=== PATIENT | male | born 1970 | race Two or more races ===

== ENCOUNTER → 2022-09-10 | Outpatient (CLI) | payer BC ==
[2022-09-10 06:58] LABS: Basophils # (auto) 0.1 10 ^3/uL (0-0.2); Basophils % (auto) 0.8 % (0.0-2.0); Eosinophils # (auto) 0.3 10 ^3/uL (0-0.8); Eosinophils % (auto) 2.8 % (0.0-7.0); Hemoglobin 12.5 g/dL (13.5-17.5); Lymphocytes # (auto) 3.8 10 ^3/uL (0.4-5.4); Lymphocytes % (auto) 32.2 % (10.0-50.0); Mean Corpuscular Hemoglobin 27.2 pg (28.0-32.0); Mean Corpuscular Hgb Conc. 33.9 g/dL (32.0-36.0); Mean Corpuscular Volume 80.3 fL (80.0-100.0); Monocytes # (auto) 0.7 10 ^3/uL (0-1.3); Monocytes % (auto) 5.8 % (0.0-12.0); Neutrophils % (auto) 58.4 % (37.0-80.0); Red Blood Cells 4.61 10^6/uL (4.5-5.90); Red Cell Distribution Width 13.5 % (11.8-14.3); White Blood Cell 11.9 10^3/uL (4.4-10.8)
[2022-09-10 07:34] LABS: Albumin 3.3 g/dL (3.4-5.0); Calcium 9.4 mg/dL (8.5-10.1)
[2022-09-10 07:38] LABS: BUN/Creatinine Ratio 16.4; Bilirubin, Total 0.2 mg/dL (0.2-1.0)
== END | disposition home or self-care (01) ==
LOC: LAB 06:43
PROVIDERS: ATTEND Nurse Practitioner Family
DX: Z00.00 Encounter for general adult medical examination without abnormal findings (principal); E11.9 Type 2 diabetes mellitus without complications; R35.1 Nocturia; E78.00 Pure hypercholesterolemia, unspecified
CPT/HCPCS: 36415; 80053; 80061; 83036; 84153; 84443; 85025

== ENCOUNTER 2022-10-09 18:17 | Inpatient (IN) | payer BC ==
[~2022-10-09] VITALS: Ht 167.6 cm; Wt 77.0 kg
[2022-10-09 19:42] LABS: Basophils % (auto) 0.2 % (0.0-2.0); Eosinophils # (auto) 0 10 ^3/uL (0-0.8); Eosinophils % (auto) 0.1 % (0.0-7.0); Monocytes # (auto) 1.5 10 ^3/uL (0-1.3)
[2022-10-09 19:44] LABS: Basophils # (auto) 0.1 10 ^3/uL (0-0.2); Hematocrit 36.3 % (41.0-53.0); Hemoglobin 11.8 g/dL (13.5-17.5); Lymphocytes # (auto) 1.8 10 ^3/uL (0.4-5.4); Lymphocytes % (auto) 6.8 % (10.0-50.0); Mean Corpuscular Hemoglobin 26.6 pg (28.0-32.0); Mean Corpuscular Hgb Conc. 32.6 g/dL (32.0-36.0); Mean Corpuscular Volume 81.6 fL (80.0-100.0); Monocytes % (auto) 5.8 % (0.0-12.0); Neutrophils # (auto) 22.7 10 ^3/uL (1.6-8.6); Neutrophils % (auto) 87.1 % (37.0-80.0); Red Blood Cells 4.45 10^6/uL (4.5-5.90); Red Cell Distribution Width 12.8 % (11.8-14.3); White Blood Cell 26.1 10^3/uL (4.4-10.8)
[2022-10-09 20:00] LABS: INR 0.98 (0.9-1.15); Partial Thromboplastin Time 31.2 sec (24.6-33.4)
[2022-10-09 20:03] LABS: Albumin 2.6 g/dL (3.4-5.0); Calcium 9.3 mg/dL (8.5-10.1); Potassium 4.6 mmol/L (3.5-5.1)
[2022-10-09 20:06] LABS: Bilirubin, Total 0.4 mg/dL (0.2-1.0); Total Protein 8.9 g/dL (6.4-8.2)
[2022-10-09 20:34] LABS: CRP High Sensitivity 17.6 mg/dL (< 0.3)
[2022-10-09] MEDS ORDERED: SODIUM CHLORIDE 0.9% 1,000 ML IV ONE (21:00)
[2022-10-09] MEDS ORDERED: VANCOMYCIN 1GM/250ML 250 ML IV ONE (21:00)
[2022-10-09] MEDS ORDERED: CEFTRIAXONE SODIUM 2 GM in D5W 5% 50 ML IV ONE (21:00)
[2022-10-09] MEDS ORDERED: InsuLIN REG 1unit/0.01ml Soln (100units/ml) IV ONE (22:15)
[2022-10-09] MEDS ORDERED: InsuLIN REG 1unit/0.01ml Soln (100units/ml) ONE (23:55)
[2022-10-10] MEDS ORDERED: VANCOMYCIN PER PHARMACY 0 MG IV SCH (00:45)
[2022-10-10] MEDS ORDERED: ONDANSETRON HCL 4 MG/2 ML VIAL IV PRN (00:45)
[2022-10-10] MEDS ORDERED: ACETAMINOPHEN 325 MG TAB PO PRN (00:45)
[2022-10-10] MEDS ORDERED: HYDROcodone-ACET 5/325MG TAB PO PRN (00:45)
[2022-10-10] MEDS ORDERED: DEXTROSE (50%) 50ML SYRG IV PRN (00:45)
[2022-10-10 01:32] LABS: Lactic Acid w/Reflex 3.1 mmol/L (0.4-2.0)
[2022-10-10] MEDS: ACCU-CHEK COMFORT CURVE STRIP VI SCH ×5 (05:39→22:25)
[2022-10-10] MEDS: InsuLIN REG 1unit/0.01ml Soln (100units/ml) SC SCH ×5 (05:42→22:33)
[2022-10-10 08:28] LABS: Basophils # (auto) 0.2 10 ^3/uL (0-0.2); Eosinophils # (auto) 0.1 10 ^3/uL (0-0.8); Hemoglobin 10.7 g/dL (13.5-17.5)
[2022-10-10 08:29] LABS: Basophils % (auto) 0.8 % (0.0-2.0); Eosinophils % (auto) 0.4 % (0.0-7.0); Hematocrit 32.4 % (41.0-53.0); Lymphocytes # (auto) 2.3 10 ^3/uL (0.4-5.4); Lymphocytes % (auto) 9.8 % (10.0-50.0); Mean Corpuscular Hemoglobin 26.2 pg (28.0-32.0); Mean Corpuscular Volume 79.6 fL (80.0-100.0); Monocytes # (auto) 1.7 10 ^3/uL (0-1.3); Monocytes % (auto) 7.1 % (0.0-12.0); Neutrophils # (auto) 19.2 10 ^3/uL (1.6-8.6); Neutrophils % (auto) 81.9 % (37.0-80.0); Red Blood Cells 4.07 10^6/uL (4.5-5.90); Red Cell Distribution Width 12.8 % (11.8-14.3); White Blood Cell 23.4 10^3/uL (4.4-10.8)
[2022-10-10 09:03] LABS: Albumin 2.2 g/dL (3.4-5.0); BUN/Creatinine Ratio 21.9; Calcium 8.5 mg/dL (8.5-10.1)
[2022-10-10 09:08] LABS: Bilirubin, Total 0.2 mg/dL (0.2-1.0); Potassium 4.1 mmol/L (3.5-5.1); Total Protein 6.6 g/dL (6.4-8.2)
[2022-10-10] MEDS ORDERED: LOSARTAN POTASSIUM 25 MG TAB PO SCH (10:00)
[2022-10-10] MEDS: PANTOPRAZOLE 40 MG TAB PO SCH (11:00)
[2022-10-10] MEDS: LACTATED RINGER'S 1,000 ML IV SCH ×2 (15:30→23:30)
[2022-10-10] MEDS ORDERED: LACTATED RINGER'S 2,000 ML IV ONE (15:30)
[2022-10-10] MEDS ORDERED: amLODIPine BESYLATE 5 MG TAB PO ONE (15:45)
[2022-10-10] MEDS: MEROPENEM 1GM IVPB 100 ML IV SCH (16:24)
[2022-10-10] MEDS ORDERED: ERGOCALCIFEROL 50,000 UNIT(1.25MG) CAP PO SCH (18:30)
[2022-10-10 20:00] VITALS: BP 118/69
[2022-10-10] MEDS ORDERED: cefTRIAXone 1GM/50ML D5W 50 ML IV SCH (21:00)
[2022-10-10 22:00] VITALS: BP 118/69
[2022-10-10] MEDS ORDERED: ATORVASTATIN 20 MG TAB PO SCH (22:00)
[2022-10-10] MEDS: ATORVASTATIN 20 MG TAB PO SCH (22:44)
[2022-10-10] MEDS: LINEZOLID 600MG/300ML 300 ML IV SCH (22:45)
[2022-10-10 23:36] LABS: Urine Blood 1+ /uL (Negative); Urine Specific Gravity 1.019 (1.001-1.035)
[2022-10-11] MEDS: ACCU-CHEK COMFORT CURVE STRIP VI SCH ×6 (01:06→21:36)
[2022-10-11] MEDS: InsuLIN REG 1unit/0.01ml Soln (100units/ml) SC SCH ×6 (01:09→22:00)
[2022-10-11] MEDS: MEROPENEM 1GM IVPB 100 ML IV SCH ×3 (01:27→16:09)
[2022-10-11 05:00] VITALS: BP 132/72
[2022-10-11 08:00] VITALS: BP 129/62
[2022-10-11] MEDS: PANTOPRAZOLE 40 MG TAB PO SCH ×2 (08:27→10:00)
[2022-10-11 08:28] VITALS: BP 128/74
[2022-10-11] MEDS: amLODIPine BESYLATE 5 MG TAB PO SCH ×2 (08:28→10:00)
[2022-10-11] MEDS: CHOLECALCIFEROL (VITD3) 2,000 UNIT CAP/TAB PO SCH ×2 (08:28→10:00)
[2022-10-11 08:36] LABS: Folate (Folic Acid) 10.41 ng/mL (5.38-24)
[2022-10-11 08:37] LABS: Eosinophils # (auto) 0.1 10 ^3/uL (0-0.8); Eosinophils % (auto) 0.6 % (0.0-7.0); Hemoglobin 10.5 g/dL (13.5-17.5); Lymphocytes # (auto) 2.6 10 ^3/uL (0.4-5.4); Red Blood Cells 3.92 10^6/uL (4.5-5.90)
[2022-10-11] MEDS: LACTATED RINGER'S 1,000 ML IV SCH ×2 (08:37→16:08)
[2022-10-11 08:40] LABS: Basophils # (auto) 0 10 ^3/uL (0-0.2); Basophils % (auto) 0.2 % (0.0-2.0); Hematocrit 31.3 % (41.0-53.0); Mean Corpuscular Hemoglobin 26.9 pg (28.0-32.0); Mean Corpuscular Hgb Conc. 33.7 g/dL (32.0-36.0); Mean Corpuscular Volume 79.9 fL (80.0-100.0); Monocytes # (auto) 1.4 10 ^3/uL (0-1.3); Monocytes % (auto) 6.8 % (0.0-12.0); Neutrophils # (auto) 17.1 10 ^3/uL (1.6-8.6); Neutrophils % (auto) 80.4 % (37.0-80.0); Red Cell Distribution Width 12.7 % (11.8-14.3); White Blood Cell 21.3 10^3/uL (4.4-10.8)
[2022-10-11 08:55] LABS: Calcium 8.4 mg/dL (8.5-10.1); Potassium 4.7 mmol/L (3.5-5.1)
[2022-10-11 09:02] LABS: BUN/Creatinine Ratio 20.2; Bilirubin, Total 0.5 mg/dL (0.2-1.0); Total Protein 6.1 g/dL (6.4-8.2)
[2022-10-11] MEDS: LINEZOLID 600MG/300ML 300 ML IV SCH (10:00)
[2022-10-11] MEDS ORDERED: INSULIN LANTUS (GLARGINE) 1 /0.01ml (100units/ml) SC SCH ×2 (10:00→22:00)
[2022-10-11] MEDS ORDERED: ceFAZolin 1GM/50ML 100 ML IV ONE (11:55)
[2022-10-11] MEDS ORDERED: BUPIVACAINE W/ EPINEPH 0.25% INJ 50ML MDV ONE (12:01)
[2022-10-11] MEDS ORDERED: LIDOCAINE 1%HCL (LOCAL ANESTH) 10 ML MDV ONE (12:02)
[2022-10-11] MEDS ORDERED: LIDOCAINE 2% (LOCAL ANESTH.) PF 5ml SDV ONE (12:02)
[2022-10-11] MEDS ORDERED: GLYCOPYRROLATE 0.2 MG/ML 1ML VIAL ONE (12:02)
[2022-10-11] MEDS ORDERED: PROPOFOL 10 MG/ML 20 ML IV ONE (12:02)
[2022-10-11] MEDS ORDERED: ONDANSETRON HCL 4 MG/2 ML VIAL ONE (12:02)
[2022-10-11] MEDS ORDERED: KETOROLAC TROMETH 30 MG/ML 1ML VIAL ONE (12:02)
[2022-10-11] MEDS ORDERED: DexAMETHasone SOD PHOS 10MG/1ML VIAL INJ ONE (12:02)
[2022-10-11] MEDS ORDERED: BUPIVACAINE 0.25% INJ 50ML VIAL ONE (12:04)
[2022-10-11] MEDS ORDERED: KETAMINE 50mg/ML 10ml Vial (500mg/10ml) IV ONE (13:51)
[2022-10-11 16:27] VITALS: BP 117/71
[2022-10-11] MEDS ORDERED: D5W/SOD CHLO 0.9% 1,000 ML IV SCH ×2 (18:00→20:00)
[2022-10-11 20:00] VITALS: BP 131/81
[2022-10-11 22:00] VITALS: BP 131/81
[2022-10-11] MEDS: ATORVASTATIN 20 MG TAB PO SCH (22:04)
[2022-10-12] VITALS (7 sets, daily range): BP systolic 131–149; BP diastolic 76–86
[2022-10-12] MEDS ORDERED: LINEZOLID 600MG TABLET PO SCH
[2022-10-12] MEDS: MEROPENEM 1GM IVPB 100 ML IV SCH ×3 (00:51→16:24)
[2022-10-12] MEDS: SOD CHL 0.45% 1,000 ML IV SCH ×2 (00:52→06:30)
[2022-10-12] MEDS: ACCU-CHEK COMFORT CURVE STRIP VI SCH ×6 (00:53→20:46)
[2022-10-12] MEDS: InsuLIN REG 1unit/0.01ml Soln (100units/ml) SC SCH ×6 (01:12→20:59)
[2022-10-12] MEDS: INSULIN LANTUS (GLARGINE) 1 /0.01ml (100units/ml) SC SCH (10:11)
[2022-10-12] MEDS: PANTOPRAZOLE 40 MG TAB PO SCH (10:26)
[2022-10-12] MEDS: amLODIPine BESYLATE 5 MG TAB PO SCH (10:26)
[2022-10-12] MEDS: CHOLECALCIFEROL (VITD3) 2,000 UNIT CAP/TAB PO SCH (10:27)
[2022-10-12 10:32] LABS: Mean Corpuscular Volume 79.8 fL (80.0-100.0)
[2022-10-12 10:34] LABS: Hematocrit 29.7 % (41.0-53.0); Hemoglobin 9.6 g/dL (13.5-17.5); Mean Corpuscular Hemoglobin 25.9 pg (28.0-32.0); Mean Corpuscular Hgb Conc. 32.4 g/dL (32.0-36.0); Red Blood Cells 3.72 10^6/uL (4.5-5.90); White Blood Cell 25.7 10^3/uL (4.4-10.8)
[2022-10-12 10:39] LABS: Calcium 8.6 mg/dL (8.5-10.1); Potassium 4.3 mmol/L (3.5-5.1)
[2022-10-12 10:47] LABS: Basophils % (manual) 0 (0.0-2.0); Blast Cells 0; Eosinophils % (manual) 0 (0-7); Metamyelocytes % 0; Myelocytes % 0; Promyelocytes % 0; Reactive Lymphocytes 0
[2022-10-12 13:04] LABS: Band Neutrophils % (manual) 4; Lymphocytes % (manual) 15 (10.0-50.0); Monocytes % (manual) 3 (0-12)
[2022-10-12] MEDS: LINEZOLID 600MG/300ML 300 ML IV SCH ×2 (13:56→21:56)
[2022-10-12] MEDS: ATORVASTATIN 20 MG TAB PO SCH (21:56)
[2022-10-13] MEDS: ACCU-CHEK COMFORT CURVE STRIP VI SCH ×7 (00:47→23:55)
[2022-10-13] MEDS: INSULIN LANTUS (GLARGINE) 1 /0.01ml (100units/ml) SC SCH ×3 (00:48→21:55)
[2022-10-13] MEDS: InsuLIN REG 1unit/0.01ml Soln (100units/ml) SC SCH ×6 (00:49→21:55)
[2022-10-13] MEDS: MEROPENEM 1GM IVPB 100 ML IV SCH ×3 (01:01→16:30)
[2022-10-13 05:00] VITALS: BP 126/76
[2022-10-13 06:29] LABS: Basophils # (auto) 0.1 10 ^3/uL (0-0.2); Eosinophils # (auto) 0.3 10 ^3/uL (0-0.8); Hemoglobin 10.1 g/dL (13.5-17.5); Mean Corpuscular Hgb Conc. 33.7 g/dL (32.0-36.0); Mean Corpuscular Volume 79.7 fL (80.0-100.0); Monocytes # (auto) 0.9 10 ^3/uL (0-1.3); Red Blood Cells 3.77 10^6/uL (4.5-5.90)
[2022-10-13 06:40] LABS: Basophils % (auto) 0.6 % (0.0-2.0); Lymphocytes % (auto) 18.8 % (10.0-50.0); Mean Corpuscular Hemoglobin 26.8 pg (28.0-32.0); Monocytes % (auto) 5.9 % (0.0-12.0); Neutrophils # (auto) 11.5 10 ^3/uL (1.6-8.6); Neutrophils % (auto) 72.7 % (37.0-80.0); Nucleated Red Blood Cells % 0.2 %; Red Cell Distribution Width 12.9 % (11.8-14.3); White Blood Cell 15.8 10^3/uL (4.4-10.8)
[2022-10-13 07:01] LABS: Calcium 8.5 mg/dL (8.5-10.1); Magnesium 2.5 mg/dL (1.6-2.6)
[2022-10-13 07:03] LABS: BUN/Creatinine Ratio 25.2
[2022-10-13 09:00] VITALS: BP 138/78
[2022-10-13] MEDS: PANTOPRAZOLE 40 MG TAB PO SCH (10:00)
[2022-10-13] MEDS: CHOLECALCIFEROL (VITD3) 2,000 UNIT CAP/TAB PO SCH (10:51)
[2022-10-13] MEDS: amLODIPine BESYLATE 5 MG TAB PO SCH (10:52)
[2022-10-13] MEDS: LINEZOLID 600MG/300ML 300 ML IV SCH ×3 (10:52→21:53)
[2022-10-13 17:11] VITALS: BP 147/88
[2022-10-13] MEDS ORDERED: DAKINS HALF STR 0.25% (NaHypochlorite) 473 ML TOPICAL SOL TOP ONE (17:45)
[2022-10-13] MEDS ORDERED: ENOXAPARIN SOD 30 MG/0.3 ML SYRINGE SC ONE (19:30)
[2022-10-13] MEDS ORDERED: DOCUSATE SOD 100 MG CAP PO ONE (19:30)
[2022-10-13 20:00] VITALS: BP 137/77
[2022-10-13] MEDS: ATORVASTATIN 20 MG TAB PO SCH (21:52)
[2022-10-13] MEDS: DOCUSATE SOD 100 MG CAP PO SCH (21:52)
[2022-10-13 22:00] VITALS: BP 137/77
[2022-10-13 23:05] LABS: Basophils # (auto) 0.1 10 ^3/uL (0-0.2); Eosinophils # (auto) 0.3 10 ^3/uL (0-0.8); Lymphocytes # (auto) 2.8 10 ^3/uL (0.4-5.4); Monocytes % (auto) 6.6 % (0.0-12.0)
[2022-10-13 23:07] LABS: Basophils % (auto) 0.6 % (0.0-2.0); Eosinophils % (auto) 1.7 % (0.0-7.0); Hematocrit 29.1 % (41.0-53.0); Hemoglobin 9.7 g/dL (13.5-17.5); Lymphocytes % (auto) 18.6 % (10.0-50.0); Mean Corpuscular Hemoglobin 26.5 pg (28.0-32.0); Mean Corpuscular Hgb Conc. 33.2 g/dL (32.0-36.0); Mean Corpuscular Volume 79.9 fL (80.0-100.0); Neutrophils % (auto) 72.5 % (37.0-80.0); Red Blood Cells 3.64 10^6/uL (4.5-5.90); Red Cell Distribution Width 12.6 % (11.8-14.3); White Blood Cell 15.2 10^3/uL (4.4-10.8)
[2022-10-14] MEDS: InsuLIN REG 1unit/0.01ml Soln (100units/ml) SC SCH ×7 (00:36→23:27)
[2022-10-14] MEDS: MEROPENEM 1GM IVPB 100 ML IV SCH ×4 (01:15→23:43)
[2022-10-14] MEDS: ACCU-CHEK COMFORT CURVE STRIP VI SCH ×6 (04:12→23:26)
[2022-10-14 05:00] VITALS: BP 143/78
[2022-10-14 05:38] LABS: Basophils # (auto) 0.1 10 ^3/uL (0-0.2); Eosinophils # (auto) 0.3 10 ^3/uL (0-0.8); Monocytes # (auto) 1.1 10 ^3/uL (0-1.3); White Blood Cell 15.4 10^3/uL (4.4-10.8)
[2022-10-14 05:49] LABS: Basophils % (auto) 0.7 % (0.0-2.0); Calcium 8.6 mg/dL (8.5-10.1); Eosinophils % (auto) 1.9 % (0.0-7.0); Hematocrit 31.3 % (41.0-53.0); Hemoglobin 10.6 g/dL (13.5-17.5); Lymphocytes # (auto) 3.3 10 ^3/uL (0.4-5.4); Lymphocytes % (auto) 21.3 % (10.0-50.0); Mean Corpuscular Hemoglobin 26.9 pg (28.0-32.0); Mean Corpuscular Hgb Conc. 33.8 g/dL (32.0-36.0); Mean Corpuscular Volume 79.7 fL (80.0-100.0); Monocytes % (auto) 7.2 % (0.0-12.0); Neutrophils # (auto) 10.6 10 ^3/uL (1.6-8.6); Neutrophils % (auto) 68.9 % (37.0-80.0); Potassium 4.4 mmol/L (3.5-5.1); Red Blood Cells 3.93 10^6/uL (4.5-5.90); Red Cell Distribution Width 12.7 % (11.8-14.3)
[2022-10-14 05:52] LABS: BUN/Creatinine Ratio 18.1
[2022-10-14 09:00] VITALS: BP 141/78
[2022-10-14] MEDS: DOCUSATE SOD 100 MG CAP PO SCH ×2 (10:00→21:35)
[2022-10-14] MEDS: amLODIPine BESYLATE 5 MG TAB PO SCH (10:12)
[2022-10-14] MEDS: PANTOPRAZOLE 40 MG TAB PO SCH (10:13)
[2022-10-14] MEDS: CHOLECALCIFEROL (VITD3) 2,000 UNIT CAP/TAB PO SCH (10:13)
[2022-10-14] MEDS: INSULIN LANTUS (GLARGINE) 1 /0.01ml (100units/ml) SC SCH ×2 (10:14→21:36)
[2022-10-14] MEDS: ENOXAPARIN SOD 30 MG/0.3 ML SYRINGE SC SCH (10:14)
[2022-10-14] MEDS: LINEZOLID 600MG/300ML 300 ML IV SCH ×2 (11:48→22:59)
[2022-10-14 13:00] VITALS: BP 160/85
[2022-10-14 17:00] VITALS: BP 130/76
[2022-10-14] MEDS: ATORVASTATIN 20 MG TAB PO SCH (21:36)
[2022-10-14 22:09] VITALS: BP 159/93
[2022-10-15] MEDS: InsuLIN REG 1unit/0.01ml Soln (100units/ml) SC SCH ×4 (04:00→16:00)
[2022-10-15 05:00] VITALS: BP 146/74
[2022-10-15] MEDS: ACCU-CHEK COMFORT CURVE STRIP VI SCH ×4 (05:44→16:00)
[2022-10-15 05:58] LABS: Basophils # (auto) 0.1 10 ^3/uL (0-0.2); Eosinophils # (auto) 0.3 10 ^3/uL (0-0.8); Hemoglobin 10.3 g/dL (13.5-17.5); Lymphocytes % (auto) 23.2 % (10.0-50.0); Monocytes # (auto) 0.9 10 ^3/uL (0-1.3)
[2022-10-15 05:59] LABS: Basophils % (auto) 0.9 % (0.0-2.0); Eosinophils % (auto) 2.4 % (0.0-7.0); Hematocrit 30.8 % (41.0-53.0); Mean Corpuscular Hemoglobin 26.5 pg (28.0-32.0); Mean Corpuscular Hgb Conc. 33.3 g/dL (32.0-36.0); Mean Corpuscular Volume 79.6 fL (80.0-100.0); Monocytes % (auto) 6.8 % (0.0-12.0); Neutrophils # (auto) 8.7 10 ^3/uL (1.6-8.6); Neutrophils % (auto) 66.7 % (37.0-80.0); Red Blood Cells 3.87 10^6/uL (4.5-5.90); White Blood Cell 13.1 10^3/uL (4.4-10.8)
[2022-10-15 06:24] LABS: Potassium 5.3 mmol/L (3.5-5.1)
[2022-10-15 06:29] LABS: BUN/Creatinine Ratio 15.1; Calcium 8.6 mg/dL (8.5-10.1)
[2022-10-15 09:00] VITALS: BP 158/91
[2022-10-15] MEDS: MEROPENEM 1GM IVPB 100 ML IV SCH ×2 (09:58→16:30)
[2022-10-15] MEDS: LINEZOLID 600MG/300ML 300 ML IV SCH (10:00)
[2022-10-15] MEDS: DOCUSATE SOD 100 MG CAP PO SCH (10:00)
[2022-10-15] MEDS: PANTOPRAZOLE 40 MG TAB PO SCH (10:01)
[2022-10-15] MEDS: CHOLECALCIFEROL (VITD3) 2,000 UNIT CAP/TAB PO SCH (10:01)
[2022-10-15] MEDS: amLODIPine BESYLATE 5 MG TAB PO SCH (10:01)
[2022-10-15] MEDS: ENOXAPARIN SOD 30 MG/0.3 ML SYRINGE SC SCH (10:02)
[2022-10-15] MEDS: INSULIN LANTUS (GLARGINE) 1 /0.01ml (100units/ml) SC SCH (10:19)
[2022-10-15] MEDS ORDERED: GLIP10TA9 PO (11:50)
[2022-10-15] MEDS ORDERED: LINE1TAB10 PO (11:50)
[2022-10-15] MEDS ORDERED: AML5T PO (11:50)
[2022-10-15 13:00] VITALS: BP 152/80
[2022-10-15 14:47] VITALS: BP 146/74
== END 2022-10-15 17:30 | disposition home or self-care (01) | DRG 853 ==
LOC: ER 18:17 → OVERFLOW 10-10 00:47 → WEST WING 10-10 17:09
PROVIDERS: ADMIT Nurse Practitioner; ATTEND Internal Medicine
PROC: 05HB33Z Insertion of Infusion Device into Right Basilic Vein, Percutaneous Approach (ICD-10-PCS; 2022-10-10)
PROC: B54MZZA Ultrasonography of Right Upper Extremity Veins, Guidance (ICD-10-PCS; 2022-10-10)
PROC: 0Y6N0ZF Detachment at Left Foot, Partial 5th Ray, Open Approach (ICD-10-PCS; principal; 2022-10-12)
DX: A41.9 Sepsis, unspecified organism (principal); A48.0 Gas gangrene; E43 Unspecified severe protein-calorie malnutrition; N17.0 Acute kidney failure with tubular necrosis; M86.172 Other acute osteomyelitis, left ankle and foot; L03.116 Cellulitis of left lower limb; E11.52 Type 2 diabetes mellitus with diabetic peripheral angiopathy with gangrene; E11.22 Type 2 diabetes mellitus with diabetic chronic kidney disease; E11.51 Type 2 diabetes mellitus with diabetic peripheral angiopathy without gangrene; E11.65 Type 2 diabetes mellitus with hyperglycemia; E11.69 Type 2 diabetes mellitus with other specified complication; N18.9 Chronic kidney disease, unspecified; Z20.822 Contact with and (suspected) exposure to COVID-19; D75.838 Other thrombocytosis; E11.621 Type 2 diabetes mellitus with foot ulcer; E55.9 Vitamin D deficiency, unspecified; E78.5 Hyperlipidemia, unspecified; F17.210 Nicotine dependence, cigarettes, uncomplicated; I12.9 Hypertensive chronic kidney disease with stage 1 through stage 4 chronic kidney disease, or unspecified chronic kidney disease; L97.509 Non-pressure chronic ulcer of other part of unspecified foot with unspecified severity; Z83.3 Family history of diabetes mellitus; Z68.27 Body mass index [BMI] 27.0-27.9, adult
CPT/HCPCS: 36415; 71045; 73630; 73718; 76775; 80048; 80053; 81003; 82306; 82570; 82607; 82746; 82962; 83605; 83735; 84132; 84156; 84300; 85007; 85025; 85027; 85610; 85652; 85730; 86141; 87040; 87070; 87075; 87205; 87426; 93005; 93926; 96365; 96375; G0378; J0690; J0696; J1100; J1815; J1885; J2001; J2185; J2405; J2704; J3490; J7060

== ENCOUNTER → 2022-10-10 | Outpatient (CLI) | payer BC | END | disposition home or self-care (01) | LOC: LAB 06:36 | PROVIDERS: ATTEND Podiatrist | DX: E11.620 Type 2 diabetes mellitus with diabetic dermatitis (principal) | CPT/HCPCS: 87075; 87205 ==

== ENCOUNTER → 2023-05-12 | Outpatient (CLI) | payer BC ==
[~2023-05-12] MED LIST: AML5T PO; GLIP10TA9 PO; LINE1TAB10 PO
[2023-05-12 12:01] LABS: Basophils # (auto) 0.1 10 ^3/uL (0-0.2); Eosinophils # (auto) 0.3 10 ^3/uL (0-0.8); Lymphocytes % (auto) 29.5 % (10.0-50.0); Monocytes # (auto) 0.5 10 ^3/uL (0-1.3); Nucleated Red Blood Cells % 0.1 %
[2023-05-12 12:03] LABS: Eosinophils % (auto) 3.3 % (0.0-7.0); Hematocrit 37.6 % (41.0-53.0); Hemoglobin 12.3 g/dL (13.5-17.5); Lymphocytes # (auto) 2.6 10 ^3/uL (0.4-5.4); Mean Corpuscular Hemoglobin 26.5 pg (28.0-32.0); Mean Corpuscular Hgb Conc. 32.7 g/dL (32.0-36.0); Mean Corpuscular Volume 80.9 fL (80.0-100.0); Monocytes % (auto) 5.7 % (0.0-12.0); Neutrophils # (auto) 5.4 10 ^3/uL (1.6-8.6); Neutrophils % (auto) 60.5 % (37.0-80.0); Red Blood Cells 4.64 10^6/uL (4.5-5.90); Red Cell Distribution Width 15.3 % (11.8-14.3); White Blood Cell 8.9 10^3/uL (4.4-10.8)
[2023-05-12 12:06] LABS: Urine Bacteria FEW /hpf (None Seen); Urine Blood 2+ /uL (Negative); Urine Specific Gravity 1.019 (1.001-1.035); Urine WBC 3 /hpf (0 - 3)
[2023-05-12 13:49] LABS: Potassium 4.8 mmol/L (3.5-5.1)
[2023-05-12 14:01] LABS: Free T4 (Free Thyroxine) 1.35 ng/dL (0.89-1.76)
[2023-05-12 14:02] LABS: Albumin 2.8 g/dL (3.4-5.0); BUN/Creatinine Ratio 15.4 (10.0-20.0); Bilirubin, Total 0.3 mg/dL (0.2-1.0); Calcium 9.2 mg/dL (8.5-10.1); Total Protein 7.3 g/dL (6.4-8.2)
== END | disposition home or self-care (01) ==
LOC: LAB 11:40
PROVIDERS: ATTEND Internal Medicine
DX: I10 Essential (primary) hypertension (principal); E11.621 Type 2 diabetes mellitus with foot ulcer; E78.2 Mixed hyperlipidemia
CPT/HCPCS: 36415; 80053; 80061; 81001; 82043; 82306; 82607; 83036; 84439; 84443; 85025

== ENCOUNTER → 2023-09-18 | Outpatient (CLI) | payer BC, MEDICAID ==
[2023-09-18 16:18] LABS: Urine Bacteria NONE SEEN /hpf (None Seen); Urine Blood 1+ /uL (Negative); Urine Clarity Clear (Clear); Urine Color Colorless (Yellow); Urine Protein, UAD 2+ (Negative); Urine Specific Gravity 1.016 (1.001-1.035); Urine Sperm PRESENT /hpf (None Seen); Urine Urobilinogen Normal (Negative); Urine WBC 1 /hpf (0 - 3)
[2023-09-18 17:19] LABS: Chloride 106 mmol/L (98-107); Potassium 5.1 mmol/L (3.5-5.1); Sodium 135 mmol/L (136-145)
[2023-09-18 17:20] LABS: Anion Gap 4 (5-15); Calcium 9.2 mg/dL (8.7-10.4); Carbon Dioxide 25 mmol/L (20-30)
[2023-09-18 17:25] LABS: BUN/Creatinine Ratio 12.5 (10.0-20.0); Blood Urea Nitrogen 35 mg/dL (9-23); Glucose 272 mg/dL (74-106)
[2023-09-18 17:26] LABS: Creatinine, Urine 46.39 mg/dL (30.0-125.0)
[2023-09-18 17:29] LABS: Protein, Urine 248.5 mg/dL (0.0-11.9); Urine Protein/Creatinine Ratio 5.36
== END | disposition home or self-care (01) ==
LOC: LAB 15:47
PROVIDERS: ATTEND Internal Medicine
DX: E11.69 Type 2 diabetes mellitus with other specified complication (principal)
CPT/HCPCS: 36415; 80048; 81001; 82043; 82274; 82306; 82570; 83036; 83935; 84156; 84300

== ENCOUNTER → 2023-09-23 | Outpatient (CLI) | payer BC, MEDICAID ==
[~2023-09-23] MED LIST changes: +AMLO1TAB23 PO; +ATOR40TA52 PO; +EMPA1TAB3 PO; +GAB100C PO; +HYDR25TA5 PO; +INSU1INJ3 SC
[2023-09-23 10:42] LABS: Creatinine, Urine 48.04 mg/dL (30.0-125.0)
[2023-09-23 11:20] LABS: Body Surface Area 1.27; Creatinine Clearance, Urine 38.44 mL/min (75-115); Patient Weight 66.8 lbs
== END | disposition home or self-care (01) ==
LOC: LAB 10:09
PROVIDERS: ATTEND Internal Medicine
DX: E11.69 Type 2 diabetes mellitus with other specified complication (principal)
CPT/HCPCS: 82575

== ENCOUNTER 2023-09-24 14:48 | Inpatient (IN) | payer BC, MEDICAID ==
[~2023-09-24] VITALS: Ht 167.6 cm; Wt 68.0 kg
[~2023-09-24 14:48] MED LIST changes: -AMLO1TAB23 PO; -ATOR40TA52 PO; -EMPA1TAB3 PO; -GAB100C PO; -HYDR25TA5 PO; -INSU1INJ3 SC
[2023-09-24] MEDS ORDERED: SODIUM CHLORIDE 0.9% 1,000 ML IV ONE ×2 (15:00)
[2023-09-24 15:28] LABS: Basophils # (auto) 0.1 10 ^3/uL (0-0.2); Basophils % (auto) 0.6 % (0.0-2.0); Eosinophils # (auto) 0 10 ^3/uL (0-0.8); Mean Corpuscular Hgb Conc. 32.6 g/dL (32.0-36.0); Monocytes # (auto) 1.4 10 ^3/uL (0-1.3)
[2023-09-24 15:31] LABS: Eosinophils % (auto) 0.4 % (0.0-7.0); Lymphocytes # (auto) 1.6 10 ^3/uL (0.4-5.4); Lymphocytes % (auto) 16.5 % (10.0-50.0); Mean Corpuscular Hemoglobin 26.9 pg (28.0-32.0); Mean Corpuscular Volume 82.7 fL (80.0-100.0); Monocytes % (auto) 15.3 % (0.0-12.0); Neutrophils # (auto) 6.3 10 ^3/uL (1.6-8.6); Neutrophils % (auto) 67.2 % (37.0-80.0); Red Blood Cells 4.47 10^6/uL (4.5-5.90); Red Cell Distribution Width 14.3 % (11.8-14.3); White Blood Cell 9.4 10^3/uL (4.4-10.8)
[2023-09-24 15:51] LABS: Alanine Aminotransferase 40 U/L (7-40); Albumin 4.4 g/dL (3.2-4.8); Alkaline Phosphatase 54 U/L (46-116); Anion Gap 7 (5-15); Aspartate Aminotransferase 55 U/L (13-40); BUN/Creatinine Ratio 11.3 (10.0-20.0); Bilirubin, Total 0.3 mg/dL (0.2-1.0); Blood Urea Nitrogen 40 mg/dL (9-23); Calcium 9.2 mg/dL (8.5-10.1); Carbon Dioxide 26 mmol/L (20-30); Chloride 105 mmol/L (98-107); Potassium 4.5 mmol/L (3.5-5.1); Sodium 138 mmol/L (136-145); Total Protein 7.5 g/dL (5.7-8.2)
[2023-09-24 15:53] LABS: Glucose 112 mg/dL (74-106)
[2023-09-24] MEDS ORDERED: DEXTROSE (50%) 50ML SYRG IV PRN (16:15)
[2023-09-24] MEDS ORDERED: NITROGLYCERIN 0.4 MG SL TAB SL PRN (16:15)
[2023-09-24] MEDS ORDERED: MORPHINE SULFATE INJ 2 MG/ml SYRG IV PRN ×2 (16:15)
[2023-09-24] MEDS ORDERED: METOCLOPRAMIDE HCL 5MG/ml INJ 2ml VIAL IV PRN (16:15)
[2023-09-24] MEDS ORDERED: HYDROcodone-ACET 5/325MG TAB PO PRN (16:15)
[2023-09-24] MEDS ORDERED: ACETAMINOPHEN 325 MG TAB PO PRN (16:15)
[2023-09-24 16:20] LABS: Urine Bacteria FEW /hpf (None Seen); Urine Blood 2+ /uL (Negative); Urine Clarity Clear (Clear); Urine Color Yellow (Yellow); Urine Protein, UAD 3+ (Negative); Urine Specific Gravity 1.018 (1.001-1.035); Urine Urobilinogen Normal (Negative); Urine WBC 1 /hpf (0 - 3)
[2023-09-24] MEDS ORDERED: guaiFENesin-DM 100/10mg/5ml SYR PO PRN (16:45)
[2023-09-24] MEDS: DOXYCYCLINE 100MG/250ML 250 ML IV SCH (18:45)
[2023-09-24] MEDS: EMPAGLIFLOZIN 10 MG TAB PO SCH (18:46)
[2023-09-24 20:16] LABS: Rapid Influenza A Negative (Negative); Rapid Influenza B Negative (Negative)
[2023-09-24 20:21] LABS: COVID19 ANTIGEN SOFIA FIA POSITIVE (NEGATIVE)
[2023-09-24] MEDS: ACCU-CHEK COMFORT CURVE STRIP VI SCH (21:08)
[2023-09-24] MEDS: InsuLIN REG 1unit/0.01ml Soln (100units/ml) SC SCH (21:10)
[2023-09-24 22:00] VITALS: PULSE 88; RESP 20; O2SAT 97
[2023-09-24] MEDS: GABAPENTIN 100 MG CAP PO SCH (22:55)
[2023-09-24] MEDS: ATORVASTATIN 20 MG TAB PO SCH (22:55)
[2023-09-24] MEDS: SODIUM CHLORIDE 0.9% 1,000 ML IV SCH (23:15)
[2023-09-25] VITALS (9 sets, daily range): BP systolic 107–169; BP diastolic 80–94; PULSE 77–84; RESP 16–20; TEMP 97.5–98.5; O2SAT 94–99
[2023-09-25 00:58] LABS: Creatinine, Urine 67.91 mg/dL (30.0-125.0)
[2023-09-25 01:00] LABS: Protein, Urine 381.2 mg/dL (0.0-11.9); Urine Protein/Creatinine Ratio 5.61
[2023-09-25] MEDS ORDERED: HYDR25TA5 PO (02:41)
[2023-09-25] MEDS ORDERED: EMPA1TAB3 PO (02:41)
[2023-09-25] MEDS ORDERED: ATOR40TA52 PO (02:41)
[2023-09-25] MEDS ORDERED: INSU1INJ3 SC (02:41)
[2023-09-25] MEDS ORDERED: GAB100C PO (02:41)
[2023-09-25] MEDS ORDERED: AMLO1TAB23 PO (02:41)
[2023-09-25] MEDS: InsuLIN REG 1unit/0.01ml Soln (100units/ml) SC SCH ×7 (04:00→23:29)
[2023-09-25] MEDS: ACCU-CHEK COMFORT CURVE STRIP VI SCH ×7 (04:00→23:32)
[2023-09-25] MEDS: DOXYCYCLINE 100MG/250ML 250 ML IV SCH ×2 (04:57→16:09)
[2023-09-25] MEDS: EMPAGLIFLOZIN 10 MG TAB PO SCH (06:35)
[2023-09-25 06:39] LABS: Eosinophils # (auto) 0 10 ^3/uL (0-0.8)
[2023-09-25 06:40] LABS: Anion Gap 7 (5-15); Carbon Dioxide 21 mmol/L (20-30); Chloride 108 mmol/L (98-107); Sodium 136 mmol/L (136-145)
[2023-09-25 06:42] LABS: Basophils # (auto) 0 10 ^3/uL (0-0.2); Basophils % (auto) 0.6 % (0.0-2.0); Calcium 8.4 mg/dL (8.7-10.4); Eosinophils % (auto) 0.3 % (0.0-7.0); Hematocrit 33.8 % (41.0-53.0); Lymphocytes # (auto) 2.2 10 ^3/uL (0.4-5.4); Lymphocytes % (auto) 31.2 % (10.0-50.0); Mean Corpuscular Hemoglobin 27.2 pg (28.0-32.0); Mean Corpuscular Hgb Conc. 32.5 g/dL (32.0-36.0); Mean Corpuscular Volume 83.7 fL (80.0-100.0); Monocytes # (auto) 1.2 10 ^3/uL (0-1.3); Monocytes % (auto) 16.9 % (0.0-12.0); Neutrophils # (auto) 3.6 10 ^3/uL (1.6-8.6); Nucleated Red Blood Cells % 0.2 %; Red Blood Cells 4.04 10^6/uL (4.5-5.90); Red Cell Distribution Width 14.6 % (11.8-14.3)
[2023-09-25 06:46] LABS: BUN/Creatinine Ratio 11.3 (10.0-20.0); Blood Urea Nitrogen 32 mg/dL (9-23); Glucose 85 mg/dL (74-106)
[2023-09-25] MEDS ORDERED: REMDESIVIR PER PHARMACY 0 ML IV SCH (08:00)
[2023-09-25] MEDS: SODIUM CHLORIDE 0.9% 1,000 ML IV SCH (08:55)
[2023-09-25] MEDS: INSULIN LANTUS (GLARGINE) 1 /0.01ml (100units/ml) SC SCH ×2 (09:08→23:30)
[2023-09-25] MEDS: amLODIPine BESYLATE 5 MG TAB PO SCH (09:09)
[2023-09-25] MEDS: PANTOPRAZOLE 40 MG TAB PO SCH ×2 (09:10→10:00)
[2023-09-25] MEDS: GABAPENTIN 100 MG CAP PO SCH ×2 (09:10→23:32)
[2023-09-25] MEDS: METOPROLOL TARTRATE 25 MG TAB PO SCH ×2 (09:10→23:32)
[2023-09-25] MEDS: hydroCHLOROthiazide 25 MG TAB PO SCH (09:10)
[2023-09-25] MEDS: cefTRIAXone 1GM/50ML D5W 50 ML IV SCH (09:11)
[2023-09-25] MEDS: ENOXAPARIN SOD 40 MG/0.4 ML SYRINGE SC SCH (09:11)
[2023-09-25] MEDS ORDERED: DexAMETHasone SOD PHOS 10MG/1ML VIAL INJ IV SCH (10:00)
[2023-09-25] MEDS ORDERED: REMDESIVIR 200 MG in NS 210ml LOADING DOSE ADULT IV ONE (10:30)
[2023-09-25] MEDS ORDERED: ERGOCALCIFEROL 50,000 UNIT(1.25MG) CAP PO SCH (11:00)
[2023-09-25] MEDS: PIOGLITAZONE HYDROCHLORIDE 30 MG TAB PO SCH (13:11)
[2023-09-25] MEDS: ALBUTEROL SULF HFA 90MCG INH 200DOSE IN SCH ×2 (14:43→22:00)
[2023-09-25] MEDS: ATORVASTATIN 20 MG TAB PO SCH (23:32)
[2023-09-26] MEDS: ACCU-CHEK COMFORT CURVE STRIP VI SCH ×3 (04:00→12:59)
[2023-09-26] MEDS: InsuLIN REG 1unit/0.01ml Soln (100units/ml) SC SCH ×3 (04:00→13:00)
[2023-09-26 05:00] VITALS: BP 149/79; PULSE 77; RESP 16; TEMP 98.2; O2SAT 94
[2023-09-26] MEDS: SODIUM CHLORIDE 0.9% 1,000 ML IV SCH (05:10)
[2023-09-26] MEDS: DOXYCYCLINE 100MG/250ML 250 ML IV SCH (05:17)
[2023-09-26] MEDS: EMPAGLIFLOZIN 10 MG TAB PO SCH (05:37)
[2023-09-26] MEDS ORDERED: ALBUTEROL SULF HFA 90MCG INH 200DOSE IN PRN (06:00)
[2023-09-26 06:10] LABS: Alanine Aminotransferase 31 U/L (7-40); Albumin 3.9 g/dL (3.2-4.8); Alkaline Phosphatase 46 U/L (46-116); Anion Gap 7 (5-15); Aspartate Aminotransferase 40 U/L (13-40); BUN/Creatinine Ratio 13.6 (10.0-20.0); Bilirubin, Total 0.2 mg/dL (0.2-1.0); Blood Urea Nitrogen 38 mg/dL (9-23); Calcium 8.8 mg/dL (8.5-10.1); Carbon Dioxide 23 mmol/L (20-30); Chloride 107 mmol/L (98-107); Glucose 88 mg/dL (74-106); Potassium 4.3 mmol/L (3.5-5.1); Sodium 137 mmol/L (136-145); Total Protein 6.5 g/dL (5.7-8.2)
[2023-09-26 07:06] LABS: Complement C3 111 mg/dL (82-167)
[2023-09-26] MEDS ORDERED: ERGO1CAP23 PO ×2 (07:20→10:05)
[2023-09-26 07:34] VITALS: O2SAT 100
[2023-09-26 08:00] VITALS: BP 156/85; PULSE 70; RESP 20; TEMP 98.4; O2SAT 100
[2023-09-26] MEDS: ENOXAPARIN SOD 40 MG/0.4 ML SYRINGE SC SCH (08:42)
[2023-09-26] MEDS: PANTOPRAZOLE 40 MG TAB PO SCH (08:42)
[2023-09-26] MEDS: METOPROLOL TARTRATE 25 MG TAB PO SCH (08:43)
[2023-09-26] MEDS: GABAPENTIN 100 MG CAP PO SCH (08:43)
[2023-09-26] MEDS: PIOGLITAZONE HYDROCHLORIDE 30 MG TAB PO SCH (08:44)
[2023-09-26] MEDS: hydroCHLOROthiazide 25 MG TAB PO SCH (08:44)
[2023-09-26] MEDS: amLODIPine BESYLATE 5 MG TAB PO SCH (08:44)
[2023-09-26] MEDS: cefTRIAXone 1GM/50ML D5W 50 ML IV SCH (08:45)
[2023-09-26] MEDS ORDERED: FUROSEMIDE 40 MG/4 ML VIAL IV SCH (10:00)
[2023-09-26 12:00] VITALS: BP 146/84; PULSE 68; RESP 20; TEMP 98; O2SAT 98
[2023-09-26 12:15] VITALS: BP 156/85; PULSE 70; RESP 20; TEMP 98.4; O2SAT 100
[2023-09-26 13:06] LABS: Anti-Nuclear Antibody Direct Negative (Negative)
[2023-09-26] MEDS ORDERED: REMDESIVIR 100mg 100 MG in SODIUM CHL 0.9% 230 ML IV SCH (15:00)
[2023-09-29 10:07] LABS: Hepatitis B Surface Antigen Negative (Negative)
[2023-09-29 10:29] LABS: Hepatitis C Antibody Negative (Negative)
== END 2023-09-26 13:09 | disposition home or self-care (01) | DRG 177 ==
LOC: ER 14:48 → TELE 16:09 → TELE-WESTW 09-25 01:57 → WEST WING 09-25 15:07
PROVIDERS: ADMIT Internal Medicine; ATTEND Internal Medicine
DX: U07.1 COVID-19 (principal); J18.0 Bronchopneumonia, unspecified organism; N17.0 Acute kidney failure with tubular necrosis; N39.0 Urinary tract infection, site not specified; E11.65 Type 2 diabetes mellitus with hyperglycemia; E11.22 Type 2 diabetes mellitus with diabetic chronic kidney disease; N18.9 Chronic kidney disease, unspecified; D63.1 Anemia in chronic kidney disease; E11.21 Type 2 diabetes mellitus with diabetic nephropathy; I12.9 Hypertensive chronic kidney disease with stage 1 through stage 4 chronic kidney disease, or unspecified chronic kidney disease; F17.210 Nicotine dependence, cigarettes, uncomplicated; Z83.3 Family history of diabetes mellitus; Z87.01 Personal history of pneumonia (recurrent)
CPT/HCPCS: 36415; 71045; 76775; 80048; 80053; 81001; 82306; 82570; 82962; 83615; 83935; 83970; 84156; 84300; 84484; 85025; 86038; 86141; 86160; 86803; 87086; 87340; 87426; 87804; 94640; G0378; J0696; J1100; J1815; J3490

== ENCOUNTER 2024-07-21 09:21 | Inpatient (IN) | payer BC, MEDICAID ==
[~2024-07-21] VITALS: Ht 170.2 cm; Wt 72.5 kg
[~2024-07-21 09:21] MED LIST changes: +AMLO1TAB23 PO; +ATOR40TA52 PO; +EMPA1TAB3 PO; +ERGO1CAP23 PO; +GAB100C PO; +HYDR25TA5 PO; +INSU1INJ3 SC
[2024-07-21 10:05] LABS: Basophils # (auto) 0.1 10 ^3/uL (0-0.2); Basophils % (auto) 0.7 % (0.0-2.0); Eosinophils # (auto) 0.2 10 ^3/uL (0-0.8); Eosinophils % (auto) 2.4 % (0.0-7.0); Hematocrit 31.2 % (41.0-53.0); Hemoglobin 10.3 g/dL (13.5-17.5); Lymphocytes # (auto) 1.8 10 ^3/uL (0.4-5.4); Mean Corpuscular Hemoglobin 29.4 pg (28.0-32.0); Mean Corpuscular Hgb Conc. 33.1 g/dL (32.0-36.0); Mean Corpuscular Volume 88.7 fL (80.0-100.0); Monocytes # (auto) 0.6 10 ^3/uL (0-1.3); Monocytes % (auto) 6.3 % (0.0-12.0); Neutrophils # (auto) 7.5 10 ^3/uL (1.6-8.6); Neutrophils % (auto) 72.6 % (37.0-80.0); Platelet Count (auto) 349 10^3/uL (140-450); Red Blood Cells 3.51 10^6/uL (4.5-5.90); Red Cell Distribution Width 14.7 % (11.8-14.3); White Blood Cell 10.3 10^3/uL (4.4-10.8)
[2024-07-21 11:11] LABS: Alanine Aminotransferase 58 U/L (7-40); Albumin 3.7 g/dL (3.2-4.8); Alkaline Phosphatase 78 U/L (46-116); Anion Gap 9 (5-15); Aspartate Aminotransferase 72 U/L (13-40); BUN/Creatinine Ratio 13.7 (10.0-20.0); Bilirubin, Total 0.2 mg/dL (0.2-1.0); Blood Urea Nitrogen 59 mg/dL (9-23); Calcium 8.8 mg/dL (8.7-10.4); Carbon Dioxide 19 mmol/L (20-30); Chloride 112 mmol/L (98-107); Glucose 139 mg/dL (74-106); Sodium 140 mmol/L (136-145); Total Protein 5.9 g/dL (5.7-8.2)
[2024-07-21] MEDS: CALCIUM GLUC 1,000mg/50ml-NS 50 ML IV ONE (12:52)
[2024-07-21] MEDS: InsuLIN REG 1unit/0.01ml Soln (100units/ml) IV ONE (13:03)
[2024-07-21] MEDS: SODIUM BICARB 8.4% 50Meq/50ml SYR Vial IV ONE (13:04)
[2024-07-21] MEDS: DEXTROSE (50%) 50ML SYRG IV ONE (13:04)
[2024-07-21] MEDS: DEXTROSE 50% SYRINGE 50 ML IV ONE (13:04)
[2024-07-21] MEDS ORDERED: MORPHINE SULFATE INJ 2 MG/ml SYRG IV PRN ×2 (16:15)
[2024-07-21] MEDS ORDERED: ONDANSETRON HCL 4 MG/2 ML VIAL IV PRN (16:15)
[2024-07-21] MEDS ORDERED: DEXTROSE (50%) 50ML SYRG IV PRN (16:15)
[2024-07-21] MEDS ORDERED: HYDROcodone-ACET 5/325MG TAB PO PRN (16:15)
[2024-07-21] MEDS ORDERED: NITROGLYCERIN 0.4 MG SL TAB SL PRN (16:15)
[2024-07-21] MEDS ORDERED: ACETAMINOPHEN 500 MG TAB PO PRN (16:15)
[2024-07-21] MEDS: ACCU-CHEK COMFORT CURVE STRIP VI SCH (16:58)
[2024-07-21] MEDS: InsuLIN REG 1unit/0.01ml Soln (100units/ml) SC SCH (17:00)
[2024-07-21 19:30] VITALS: PULSE 88; RESP 18; O2SAT 98
[2024-07-21 22:00] VITALS: BP 179/97; PULSE 84; RESP 18; TEMP 97.8; O2SAT 99
[2024-07-21] MEDS: SODIUM BICARBONATE 650 MG TAB PO SCH (22:19)
[2024-07-21] MEDS: SODIUM ZIRCONIUM CYCL 10 GM PAK PO SCH (22:19)
[2024-07-21 22:24] VITALS: PULSE 84; RESP 18; O2SAT 99
[2024-07-21] MEDS: hydrALAZINE HCL 20 MG/ML VL IV PRN (22:50)
[2024-07-21] MEDS ORDERED: FENO145T27 PO (23:00)
[2024-07-21] MEDS ORDERED: LOSA-534 PO (23:00)
[2024-07-21] MEDS ORDERED: PIOG1TAB37 PO (23:00)
[2024-07-21 23:24] LABS: Urine Bacteria None Seen /hpf (None Seen)
[2024-07-21 23:42] LABS: Creatinine, Urine 35.89 mg/dL (30.0-125.0)
[2024-07-21 23:44] LABS: Protein, Urine 492.3 mg/dL (0.0-11.9); Urine Protein/Creatinine Ratio 13.72
[2024-07-21 23:47] LABS: Urine Blood 2+ /uL (Negative); Urine Clarity Clear (Clear); Urine Color Colorless (Yellow); Urine Protein, UAD 3+ (Negative); Urine Specific Gravity 1.011 (1.001-1.035); Urine Urobilinogen Normal (Negative); Urine WBC 1 /hpf (0 - 3); Urine pH 6.5 (5.0-9.0)
[2024-07-22 05:00] VITALS: BP 150/87; PULSE 90; RESP 19; TEMP 97.9; O2SAT 99
[2024-07-22 06:10] LABS: Calcium 9.2 mg/dL (8.7-10.4); Chloride 114 mmol/L (98-107); Potassium 5.1 mmol/L (3.5-5.1); Sodium 142 mmol/L (136-145)
[2024-07-22 06:11] LABS: Anion Gap 8 (5-15); Carbon Dioxide 20 mmol/L (20-30)
[2024-07-22 06:16] LABS: % Iron Saturation 25.3 % (20-55); Glucose 102 mg/dL (74-106)
[2024-07-22 06:17] LABS: BUN/Creatinine Ratio 14.4 (10.0-20.0); Blood Urea Nitrogen 58 mg/dL (9-23); LDL Cholesterol 84 mg/dL (< 100); Triglycerides 108 mg/dL (< 150)
[2024-07-22 06:18] LABS: Cholesterol 155 mg/dL (< 200); HDL Cholesterol 49 mg/dL (40-59)
[2024-07-22 06:19] LABS: Phosphorus 5.2 mg/dL (2.4-5.1)
[2024-07-22 08:00] VITALS: PULSE 77
[2024-07-22 09:11] VITALS: BP 138/70; PULSE 91; RESP 18; TEMP 98.2; O2SAT 98
[2024-07-22] MEDS ORDERED: amLODIPine BESYLATE 5 MG TAB PO SCH (10:00)
[2024-07-22 13:24] VITALS: BP 159/90; PULSE 88; RESP 16; TEMP 98; O2SAT 100
[2024-07-22] MEDS: ERGOCALCIFEROL 50,000 UNIT(1.25MG) CAP PO SCH (14:44)
[2024-07-22] MEDS: FUROSEMIDE 40 MG/4 ML VIAL IV SCH (14:45)
[2024-07-22 16:38] VITALS: BP 135/65; PULSE 91; RESP 16; TEMP 98.6; O2SAT 99
[2024-07-22] MEDS: hydrALAZINE HCL 10 MG TAB PO ONE (17:31)
[2024-07-22 21:00] VITALS: BP 152/79; PULSE 96; RESP 20; TEMP 98.3; O2SAT 99
[2024-07-22] MEDS: hydrALAZINE HCL 25 MG TAB PO SCH (22:44)
[2024-07-23] VITALS (7 sets, daily range): BP systolic 123–175; BP diastolic 74–91; PULSE 77–90; RESP 14–18; TEMP 98.2–98.6; O2SAT 95–99
[2024-07-23 06:04] LABS: Chloride 111 mmol/L (98-107); Potassium 4.1 mmol/L (3.5-5.1); Sodium 139 mmol/L (136-145)
[2024-07-23 06:05] LABS: Anion Gap 8 (5-15); Carbon Dioxide 20 mmol/L (20-30)
[2024-07-23 06:06] LABS: Calcium 8.7 mg/dL (8.7-10.4)
[2024-07-23 06:10] LABS: Glucose 82 mg/dL (74-106)
[2024-07-23 06:11] LABS: BUN/Creatinine Ratio 12.7 (10.0-20.0); Blood Urea Nitrogen 51 mg/dL (9-23)
[2024-07-23] MEDS: ATORVASTATIN 20 MG TAB PO SCH (09:29)
[2024-07-23] MEDS: amLODIPine BESYLATE 5 MG TAB PO SCH (09:30)
[2024-07-23] MEDS ORDERED: PIOGLITAZONE HYDROCHLORIDE 30 MG TAB PO SCH (10:00)
[2024-07-23] MEDS ORDERED: FUROSEMIDE 40 MG/4 ML VIAL IV SCH (10:00)
[2024-07-23] MEDS: LOSARTAN POTASSIUM 50 MG TAB PO SCH (10:00)
[2024-07-23] MEDS: Fenofibrate 145 MG TAB PO SCH (10:00)
[2024-07-23] MEDS ORDERED: hydroCHLOROthiazide 25 MG TAB PO SCH (10:00)
[2024-07-23] MEDS: cloNIDine HCL 0.1 MG TAB PO ONE (16:08)
[2024-07-23] MEDS: hydrALAZINE HCL 25 MG TAB PO SCH (22:54)
[2024-07-24 01:00] VITALS: BP 131/72; PULSE 84; RESP 18; TEMP 98; O2SAT 99
[2024-07-24 05:00] VITALS: BP 137/69; PULSE 77; RESP 17; TEMP 98.4; O2SAT 97
[2024-07-24 07:08] LABS: Chloride 105 mmol/L (98-107); Potassium 3.6 mmol/L (3.5-5.1); Sodium 138 mmol/L (136-145)
[2024-07-24 07:09] LABS: Anion Gap 12 (5-15); Carbon Dioxide 21 mmol/L (20-30)
[2024-07-24 07:10] LABS: Calcium 8.8 mg/dL (8.7-10.4)
[2024-07-24 07:15] LABS: BUN/Creatinine Ratio 14.7 (10.0-20.0); Glucose 97 mg/dL (74-106)
[2024-07-24 07:34] LABS: Blood Urea Nitrogen 61 mg/dL (9-23)
[2024-07-24 08:41] VITALS: BP 150/80; PULSE 79; RESP 18; TEMP 98; O2SAT 98
[2024-07-24 13:00] VITALS: BP 137/77; PULSE 84; RESP 16; TEMP 98.3; O2SAT 99
[2024-07-24] MEDS ORDERED: SODI650T PO (15:17)
[2024-07-24] MEDS ORDERED: LOSA-534 PO (15:17)
[2024-07-24] MEDS ORDERED: FURO1TAB31 PO (15:17)
[2024-07-24] MEDS ORDERED: SODI5PAK PO (15:17)
[2024-07-24] MEDS: LOSARTAN POTASSIUM 50 MG TAB PO SCH (15:21)
[2024-07-24 16:11] VITALS: BP 137/77; TEMP 36.8
[2024-07-24 16:19] VITALS: BP 136/78; PULSE 85; RESP 16; TEMP 98.3; O2SAT 99
[2024-07-26 10:33] LABS: Hepatitis B Core Total AB Negative (Negative)
[2024-07-26 10:56] LABS: Hepatitis A Total Antibody Positive (Negative); Hepatitis B Surface Antibody Negative (Negative); Hepatitis B Surface Antigen Negative (Negative); Hepatitis C Antibody Negative (Negative)
== END 2024-07-24 16:50 | disposition home or self-care (01) | DRG 640 ==
LOC: ER 09:21 → TELE 16:15 → TELE-WESTW 21:50 → WEST WING 07-23 02:48
PROVIDERS: ADMIT Nurse Practitioner Acute Care; ATTEND Internal Medicine
DX: E87.6 Hypokalemia (principal); N17.0 Acute kidney failure with tubular necrosis; N18.4 Chronic kidney disease, stage 4 (severe); E78.5 Hyperlipidemia, unspecified; F17.210 Nicotine dependence, cigarettes, uncomplicated; E87.5 Hyperkalemia; D63.1 Anemia in chronic kidney disease; E83.39 Other disorders of phosphorus metabolism; I12.9 Hypertensive chronic kidney disease with stage 1 through stage 4 chronic kidney disease, or unspecified chronic kidney disease; E11.22 Type 2 diabetes mellitus with diabetic chronic kidney disease; Z83.3 Family history of diabetes mellitus; Z79.4 Long term (current) use of insulin; Z79.899 Other long term (current) drug therapy
CPT/HCPCS: 36415; 71045; 76775; 80048; 80053; 80061; 81001; 82570; 82728; 82962; 83540; 83550; 83970; 84100; 84156; 85025; 86703; 86704; 86706; 86708; 86803; 87340; 93306; 96365; 96375; 99291; G0378; J1815

== ENCOUNTER → 2024-08-09 | Outpatient (CLI) | payer BC, MEDICAID ==
[~2024-08-09] MED LIST changes: -AML5T PO; -ERGO1CAP23 PO; +FENO145T27 PO; +FURO1TAB31 PO; -GAB100C PO; -INSU1INJ3 SC; -LINE1TAB10 PO; +LOSA-534 PO; +PIOG1TAB37 PO; +SODI5PAK PO; +SODI650T PO
[2024-08-09 06:46] LABS: Urine Bacteria None Seen /hpf (None Seen)
[2024-08-09 06:54] LABS: Urine Blood 2+ /uL (Negative); Urine Clarity Clear (Clear); Urine Color Colorless (Yellow); Urine Protein, UAD 3+ (Negative); Urine Urobilinogen Normal (Negative); Urine WBC <1 /hpf (0 - 3)
[2024-08-09 06:55] LABS: Basophils # (auto) 0.1 10 ^3/uL (0-0.2); Basophils % (auto) 0.9 % (0.0-2.0); Eosinophils # (auto) 0.2 10 ^3/uL (0-0.8); Eosinophils % (auto) 1.7 % (0.0-7.0); Hematocrit 30.9 % (41.0-53.0); Hemoglobin 10.6 g/dL (13.5-17.5); Lymphocytes # (auto) 2.5 10 ^3/uL (0.4-5.4); Lymphocytes % (auto) 27.9 % (10.0-50.0); Mean Corpuscular Hemoglobin 29.1 pg (28.0-32.0); Mean Corpuscular Hgb Conc. 34.2 g/dL (32.0-36.0); Mean Corpuscular Volume 85.1 fL (80.0-100.0); Monocytes # (auto) 0.7 10 ^3/uL (0-1.3); Monocytes % (auto) 7.8 % (0.0-12.0); Neutrophils # (auto) 5.6 10 ^3/uL (1.6-8.6); Neutrophils % (auto) 61.7 % (37.0-80.0); Platelet Count (auto) 401 10^3/uL (140-450); Red Blood Cells 3.64 10^6/uL (4.5-5.90); Red Cell Distribution Width 14.1 % (11.8-14.3); White Blood Cell 9.1 10^3/uL (4.4-10.8)
[2024-08-09 07:36] LABS: Creatinine, Urine 41.9 mg/dL (30.0-125.0)
[2024-08-09 07:38] LABS: Alanine Aminotransferase 47 U/L (7-40); Albumin 4.4 g/dL (3.2-4.8); Alkaline Phosphatase 60 U/L (46-116); Anion Gap 13 (5-15); Aspartate Aminotransferase 56 U/L (13-40); BUN/Creatinine Ratio 15.2 (10.0-20.0); Calcium 9.5 mg/dL (8.7-10.4); Carbon Dioxide 21 mmol/L (20-31); Chloride 105 mmol/L (98-107); Glucose 93 mg/dL (74-106); Magnesium 2.1 mg/dL (1.6-2.6); Potassium 4.6 mmol/L (3.5-5.1); Sodium 139 mmol/L (136-145)
[2024-08-09 07:39] LABS: Bilirubin, Total 0.3 mg/dL (0.2-1.0); Phosphorus 8.2 mg/dL (2.4-5.1); Total Protein 7.1 g/dL (5.7-8.2); Urine Protein/Creatinine Ratio 7.14
[2024-08-09 08:19] LABS: Blood Urea Nitrogen 87 mg/dL (9-23)
== END | disposition home or self-care (01) ==
LOC: LAB 06:30
PROVIDERS: ATTEND Internal Medicine
DX: E11.21 Type 2 diabetes mellitus with diabetic nephropathy (principal); E21.3 Hyperparathyroidism, unspecified; N39.0 Urinary tract infection, site not specified; E55.9 Vitamin D deficiency, unspecified; R80.9 Proteinuria, unspecified; D63.1 Anemia in chronic kidney disease; N18.30 Chronic kidney disease, stage 3 unspecified
CPT/HCPCS: 36415; 80053; 81001; 82306; 82570; 83735; 83970; 84100; 84156; 85025

== ENCOUNTER → 2024-11-01 | Day surgery (SDC) | payer BC, MEDICAID ==
[2024-10-26 10:04] LABS: Urine Bacteria None Seen /hpf (None Seen)
[2024-10-26 10:13] LABS: Basophils # (auto) 0.1 10 ^3/uL (0-0.2); Basophils % (auto) 0.8 % (0.0-2.0); Eosinophils # (auto) 0.2 10 ^3/uL (0-0.8); Eosinophils % (auto) 2.2 % (0.0-7.0); Hematocrit 29.1 % (41.0-53.0); Hemoglobin 9.9 g/dL (13.5-17.5); Lymphocytes # (auto) 1.9 10 ^3/uL (0.4-5.4); Lymphocytes % (auto) 17.3 % (10.0-50.0); Mean Corpuscular Hgb Conc. 34.1 g/dL (32.0-36.0); Mean Corpuscular Volume 84.9 fL (80.0-100.0); Monocytes # (auto) 0.8 10 ^3/uL (0-1.3); Monocytes % (auto) 7.5 % (0.0-12.0); Neutrophils # (auto) 7.8 10 ^3/uL (1.6-8.6); Neutrophils % (auto) 72.2 % (37.0-80.0); Platelet Count (auto) 411 10^3/uL (140-450); Red Blood Cells 3.43 10^6/uL (4.5-5.90); Red Cell Distribution Width 14.4 % (11.8-14.3); White Blood Cell 10.8 10^3/uL (4.4-10.8)
[2024-10-26 10:25] LABS: Urine Blood 1+ /uL (Negative); Urine Clarity Clear (Clear); Urine Color Colorless (Yellow); Urine Hyaline Cast FEW /lpf (0 - 2); Urine Protein, UAD 3+ (Negative); Urine Urobilinogen Normal (Negative); Urine WBC 1 /hpf (0 - 3)
[2024-10-26 10:50] LABS: Alanine Aminotransferase 34 U/L (7-40); Albumin 3.8 g/dL (3.2-4.8); Alkaline Phosphatase 90 U/L (46-116); Anion Gap 10 (5-15); Aspartate Aminotransferase 28 U/L (13-40); BUN/Creatinine Ratio 15.7 (10.0-20.0); Calcium 9.5 mg/dL (8.7-10.4); Carbon Dioxide 25 mmol/L (20-31); Chloride 105 mmol/L (98-107); Glucose 97 mg/dL (74-106); Potassium 4.3 mmol/L (3.5-5.1); Sodium 140 mmol/L (136-145); Total Protein 6.4 g/dL (5.7-8.2)
[2024-10-26 11:08] LABS: Bilirubin, Total 0.3 mg/dL (0.2-1.0); Blood Urea Nitrogen 68 mg/dL (9-23)
[2024-10-26 11:27] LABS: INR 0.94 (0.9-1.15); Partial Thromboplastin Time 27.4 SEC (24.5-34.5)
[~2024-11-01] VITALS: Ht 167.6 cm; Wt 66.2 kg
[~2024-11-01] MED LIST changes: -FURO1TAB31 PO; +HYDROmorphone HCL 2 MG/ML VL/or syr IV PRN; +HYDROmorphone HCL 2 MG/ML VL/or syr ONE; +KETOROLAC TROMETH 30 MG/ML 1ML VIAL ONE; +LIDOCAINE 1% INJ PF 5ML AMP ONE; +METOCLOPRAMIDE HCL 5MG/ml INJ 2ml VIAL ONE; +ONDANSETRON HCL 4 MG/2 ML VIAL IV ONE; +ONDANSETRON HCL 4 MG/2 ML VIAL ONE; +PROPOFOL 10 MG/ML 20 ML IV ONE; +ceFAZolin 2 GM/D5W100ml 100 ML IV ONE
[2024-11-01 13:26] VITALS: PULSE 70; RESP 14; O2SAT 100
[2024-11-01] MEDS: BUPIVACAINE 0.5% P/F INJ 10 ML VIAL ONE (14:09)
[2024-11-01 14:26] VITALS: BP 132/71; PULSE 68; RESP 14; O2SAT 100
--- NOTE | 2024-11-01 16:16 | DVHOP2 ---
Operative Report - 2 Report Details Date: 11/01/24 Preop Diagnosis: 1. Left foot 4th toe hammer toe 2. Left foot 4th metatarsalgia 3. Left foot callus 4. Left foot pain Postop Diagnosis: Same as preop Surgeon: Thai Willams MD Anesthesiologist: See anesthesia Anesthesia: General Implant: See anesthesia Consent: The patient was informed of the risks and benefits of the procedure. These include but are not limited to complications of anesthesia, postoperative infection, incomplete relief of symptoms, recurrence of symptoms, damage to blood vessels, nerves and tendons, deep venous thrombosis, pulmonary embolism and possible need for repeat surgery in the future. Complications: None Estimated Blood Loss: Minimal Fluids: See anesthesia Findings: Consistent with diagnosis Indications for Surgery: Worsening left foot pain Name of Procedure Performed 1. Left fourth hammer toe repair 2. Left fourth gary osteotomy Procedure Details Procedure Details: PRE-PROCEDURE INFORMATION: In the pre-op holding area, the extremity to be operated on was clearly marked and the patient verified correct laterality of the marking. The patient was transferred to the OR table and placed in a supine position. A timeout was performed in which identification of the correct patient, procedure, location, and materials was done. The left foot and leg were prepped and draped in normal sterile fashion. The foot and leg were exs anguinated and the calf tourniquet was inflated to 250 mmHg. DESCRIPTION OF PROCEDURE: Attention was directed to the left 4th metatarsal where a stab incision was made medial to the metatarsal head. Using intraoperative fluoroscopy, it was noted that the correct location of the incision was made. Using the Arthrex MIS willam, a Gary osteotomy was then made at the metatarsal neck. Using intraoperative fluoroscopy was noted that complete osteotomy was performed in the metatarsal head was able to float. At tention was then directed to the left 4th toe where the hammertoe contracture was located. A stab incision was then made on the medial aspect of the proximal phalanx. Using an MIS bur, a transverse osteotomy was then performed of the proximal phalanx. It was noted clinically as well as intraoperative that the correction of the 4th hammertoe was made. The incisions were then closed with a 4-0 nylon. The toe was then placed in a flattened plantar flexed position. All surgical wounds were irrigated copiously with saline and closed in layers with the aforementioned suture material. A dry sterile dressing was placed on the surgical extremity. The patient was placed in a postop shoe. POSTOPERATIVE INFORMATION: The patient tolerated the above noted procedure and anesthesia well and was transferred to the PACU with vital signs stable, and vascular status intact with capillary refill intact to all digits. Postoperative instructions reviewed in detail with the patient with written instructions provided. Patient will return to clinic in approximately 10-14 days for first postoperative visit. Patient has the number of the clinic and was instructed to call prior to that time should any problems, questions, or concerns arise. Condition Good Disposition Home THAI WILLAMS DPM Nov 01, 2024 16:16
== END | disposition home or self-care (01) ==
LOC: SUR 09:04
PROVIDERS: ATTEND Podiatrist
DX: M20.42 Other hammer toe(s) (acquired), left foot (principal); M77.42 Metatarsalgia, left foot; L84 Corns and callosities; E78.5 Hyperlipidemia, unspecified; I12.9 Hypertensive chronic kidney disease with stage 1 through stage 4 chronic kidney disease, or unspecified chronic kidney disease; E11.22 Type 2 diabetes mellitus with diabetic chronic kidney disease; N18.31 Chronic kidney disease, stage 3a; E11.42 Type 2 diabetes mellitus with diabetic polyneuropathy; F17.210 Nicotine dependence, cigarettes, uncomplicated; Z98.890 Other specified postprocedural states; Z83.3 Family history of diabetes mellitus
CPT/HCPCS: 28285; 28308; 36415; 80053; 81001; 82962; 85025; 85610; 85730; J1171; J1885; J2405; J2704; J2765; J3490

== ENCOUNTER → 2025-04-06 | Outpatient (CLI) | payer MEDICAID ==
[~2025-04-06] MED LIST changes: -HYDROmorphone HCL 2 MG/ML VL/or syr IV PRN; -HYDROmorphone HCL 2 MG/ML VL/or syr ONE; -KETOROLAC TROMETH 30 MG/ML 1ML VIAL ONE; -LIDOCAINE 1% INJ PF 5ML AMP ONE; -METOCLOPRAMIDE HCL 5MG/ml INJ 2ml VIAL ONE; -ONDANSETRON HCL 4 MG/2 ML VIAL IV ONE; -ONDANSETRON HCL 4 MG/2 ML VIAL ONE; -PROPOFOL 10 MG/ML 20 ML IV ONE; -ceFAZolin 2 GM/D5W100ml 100 ML IV ONE
[2025-04-06 12:59] LABS: Urine Bacteria None Seen /hpf (None Seen)
[2025-04-06 13:06] LABS: Basophils # (auto) 0.1 10 ^3/uL (0-0.2); Basophils % (auto) 0.6 % (0.0-2.0); Eosinophils # (auto) 0.1 10 ^3/uL (0-0.8); Eosinophils % (auto) 0.5 % (0.0-7.0); Hematocrit 28.1 % (41.0-53.0); Hemoglobin 9.4 g/dL (13.5-17.5); Lymphocytes # (auto) 1.5 10 ^3/uL (0.4-5.4); Lymphocytes % (auto) 10.4 % (10.0-50.0); Mean Corpuscular Hemoglobin 27.8 pg (28.0-32.0); Mean Corpuscular Hgb Conc. 33.3 g/dL (32.0-36.0); Mean Corpuscular Volume 83.4 fL (80.0-100.0); Monocytes # (auto) 0.9 10 ^3/uL (0-1.3); Monocytes % (auto) 6.5 % (0.0-12.0); Neutrophils # (auto) 11.7 10 ^3/uL (1.6-8.6); Platelet Count (auto) 419 10^3/uL (140-450); Red Blood Cells 3.37 10^6/uL (4.5-5.90); Red Cell Distribution Width 14.2 % (11.8-14.3); White Blood Cell 14.3 10^3/uL (4.4-10.8)
[2025-04-06 13:16] LABS: Urine Blood 1+ /uL (Negative); Urine Clarity Clear (Clear); Urine Color Light-Yellow (Yellow); Urine Protein, UAD 3+ (Negative); Urine Specific Gravity 1.011 (1.001-1.035); Urine Squamous Epithelial Cell FEW /hpf (<5); Urine Urobilinogen Normal (Negative); Urine WBC 1 /HPF (0-3); Urine pH 6.5 (5.0-9.0)
[2025-04-06 13:24] LABS: Anion Gap 11 (5-15); Calcium 9.4 mg/dL (8.7-10.4); Sodium 140 mmol/L (136-145)
[2025-04-06 13:25] LABS: Aspartate Aminotransferase 26 U/L (13-40); BUN/Creatinine Ratio 14.8 (10.0-20.0)
[2025-04-06 13:26] LABS: Albumin 4.2 g/dL (3.2-4.8); Cholesterol 200 mg/dL (< 200); HDL Cholesterol 44 mg/dL (40-59)
[2025-04-06 13:27] LABS: Bilirubin, Total 0.3 mg/dL (0.2-1.0); Free T3 2.23 pg/mL (2.3-4.2)
[2025-04-06 13:28] LABS: Free T4 (Free Thyroxine) 1.29 ng/dL (0.89-1.76)
[2025-04-06 13:30] LABS: Alanine Aminotransferase 48 U/L (7-40); Alkaline Phosphatase 224 U/L (46-116); Carbon Dioxide 19 mmol/L (20-31); Chloride 110 mmol/L (98-107); Glucose 121 mg/dL (74-106); LDL Cholesterol 127 mg/dL (< 100); Potassium 5.5 mmol/L (3.5-5.1); Triglycerides 173 mg/dL (< 150)
[2025-04-06 13:37] LABS: Blood Urea Nitrogen 88 mg/dL (9-23)
== END | disposition home or self-care (01) ==
LOC: LAB 12:44
PROVIDERS: ATTEND Internal Medicine
DX: E11.42 Type 2 diabetes mellitus with diabetic polyneuropathy (principal)
CPT/HCPCS: 36415; 80053; 80061; 81001; 82043; 82306; 82607; 83036; 84439; 84443; 84481; 85025

== ENCOUNTER 2025-04-17 22:35 | Emergency (ER) | payer MEDICAID ==
[~2025-04-17] VITALS: Ht 167.6 cm; Wt 70.2 kg
[~2025-04-17 22:35] MED LIST changes: +GABA-1308 PO
--- NOTE | 2025-04-17 22:56 | ED.PDOC ---
History of Present Illness HPI Comments 54-year-old male presents with complaint of skin discoloration. Patient is a poor historian. He endorses on coming to the ED for further evaluation after being told by family members that his skin appears "yellow." Patient refutes any history of liver disease and only endorses on medical history of chronic kidney failure stage IV, diabetes, and HIV. Denies having any further associated symptoms at this time. Patient was hypertensive on arrival. Chief Complaint: Upper Extremity Time Seen by MD: 22:50 Primary Care Provider: ABHISHEK Oviedo Notes: Nurses Notes, Medications, Allergies Allergies: Coded Allergies: No Known Drug Allergy (Verified Allergy, Unknown, 10/27/24) Home Meds Active Scripts Sodium Zirconium Cyclosilicate (Lokelma) 5 Gm John, 10 GM PO TID for 30 Days, #90 PACK 3 Refills Prov:EVER RIVERA DO 07/24/24 Sodium Bicarbonate (Sodium Bicarbonate) 650 Mg Tab, 1300 MG PO TID for 30 Days, #180 TAB 3 Refills Prov:EVER RIVERA Gato DO 07/24/24 Losartan Potassium (Losartan Potassium) 50 Mg Tab, 50 MG PO DAILY for 30 Days, #30 TAB 3 Refills Prov:EVER RIVERA DO 07/24/24 Glipizide (Glipizide) 10 Mg Tab, 1 TAB PO BID, #180 TAB 3 Refills Prov:ANNA MARIE MENDOZA MD 10/15/22 Reported Medications Losartan Potassium (Losartan Potassium) 50 Mg Tab, 1 TAB PO DAILY 07/21/24 Pioglitazone Hydrochloride (PIOGLITAZONE HCL) 30 Mg Tab, 1 TAB PO DAILY 07/21/24 Fenofibrate (FENOFIBRATE) 145 Mg Tab, 1 TAB PO DAILY 07/21/24 Empagliflozin (Jardiance) 25 Mg Tab, 1 TAB PO DAILY 09/25/23 Atorvastatin Calcium (ATORVASTATIN CALCIUM) 40 Mg Tab, 1 TAB PO DAILY 09/25/23 Hctz (Hydrochlorothiazide) 25 Mg Tab, 1 TAB PO DAILY 09/25/23 Amlodipine Besylate (Amlodipine Besylate) 10 Mg Tab, 1 TAB PO DAILY 09/25/23 Information Source: Patient Mode of Arrival: Ambulatory Severity: Moderate Timing: Hours Duration: Since onset Prehospital treatment: None Past Medical History PAST MEDICAL HISTORY: CKF (Stage IV), DM, HIV Surgical History: Denies all surgeries Family History Family History: Family hx of DM Social History Smoker: Cigarettes Alcohol: Denies ETOH Use Drugs: Denies Drug Use Lives In: Home Constitutional: denies: chills, diaphoresis, fatigue, fever, malaise, sweats, weakness, others EENTM: denies: blurred vision, double vision, ear bleeding, ear discharge, ear drainage, ear pain, ear ringing, eye pain, eye redness, hearing loss, mouth pain, mouth swelling, nasal discharge, nose bleeding, nose congestion, nose pain, photophobia, tearing, throat pain, throat swelling, voice changes, others Respiratory: denies: cough, hemoptysis, orthopnea, SOB at rest, shortness of breath, SOB with excertion, stridor, wheezing, others Cardiovascular: denies: chest pain, dizzy spells, diaphoresis, Dyspnea on exertion, edema, irregular heart beat, left arm pain, lightheadedness, palpitations, PND, syncope, others Gastrointestinal: denies: abdomen distended, abdominal pain, blood streaked bowels, constipated, diarrhea, dysphagia, difficulty swallowing, hematemesis, melena, nausea, poor appetite, poor fluid intake, rectal bleeding, rectal pain, vomiting, others Genitourinary: denies: burning, dysuria, flank pain, frequency, hematuria, incontinence, penile discharge, penile sore, pain, testicle pain, testicle swelling, urgency, others Neurological: denies: dizziness, fainting, headache, left sided numbness, left sided weakness, numbness, paresthesia, pre-existing deficit, right sided numbness, right sided weakness, seizure, speech problems, tingling, tremors, weakness, others Musculoskeletal: denies: back pain, gout, joint pain, joint swelling, muscle pain, muscle stiffness, neck pain, others Integumetry: reports: others (Skin discoloration); denies: bruises, change in color, change in hair/nails, dryness, laceration, lesions, lumps, rash, wounds Allergic/Immunocompromised: denies: Difficulty Healing, Frequent Infections, Hives, Itching, others Hematologic/Lymphatic: denies: anemia, blood clots, easy bleeding, easy bruising, swollen glands, others Endocrine: denies: excessive hunger, excessive sweating, excessive thirst, excessive urination, flushing, intolerance to cold, intolerance to heat, unexplained weight gain, unexplained weight loss, others Psychiatric: denies: anxiety, bipolar disorder, depression, hopeless, panic disorder, schizophrenia, sleepless, suicidal, others All Other Systems: Reviewed and Negative (Comprehensive review of systems are negative unless otherwise stated in HPI) Physical Exam General Appearance: No Apparent Distress (Patient has had no complaints at time of evaluation and did not look particularly jaundice. Unknown as patient's baseline skin color.), Normal HEENT: Normal ENT Inspection, Pharynx Normal, TMs Normal, Other (No definitive signs of icterus.) Neck: Full Range of Motion, Non-Tender, Normal, Normal Inspection Respiratory: Chest Non-Tender, Lungs Clear, No Accessory Muscle Use, No Respiratory Distress, Normal Breath Sounds Cardiovascular: No Edema, No JVD, No Murmur, No Gallop, Normal Peripheral Pulses, Regular Rate/Rhythm Breast Exam: Deferred Gastrointestinal: No Organomegaly, Non Tender, No Pulsatile Mass, Normal Bowel Sounds, Soft Genitalia: Deferred Pelvic: Deferred Rectal: Deferred Extremities: No calf tenderness, Normal capillary refill, Normal inspection, Normal range of motion, Non-tender, No pedal edema Neurologic: Alert, No Motor Deficits, Normal Affect, Normal Mood, No Sensory Deficits Cerebellar Function: Normal Reflexes: Normal Skin: Dry, Normal Color, Warm Lymphatic: No Adenopathy Was a procedure done? Was a procedure done?: No Differential Dx Considerations may include: Liver failure, jaundice, biliary obstruction, hemolytic condition, among others X-Ray, Labs, Meds, VS Vital Signs Date Time Temp Pulse Resp B/P (MAP) Pulse Ox O2 Delivery O2 Flow Rate FiO2 04/17/25 23:57 97.6 86 17 137/84 (101) 99 97.6 04/17/25 23:57 Room Air* 0 21 04/17/25 22:49 97.4 90 16 158/89 (112) 100 97.4 Lab Test 04/17/25 23:00 04/17/25 22:50 Range/Units White Blood Count 9.1 4.4-10.8 10^3/uL Red Blood Count 3.38 L 4.5-5.90 10^6/uL Hemoglobin 9.5 L 13.5-17.5 g/dL Hematocrit 28.2 L 41.0-53.0 % Mean Corpuscular Volume 83.4 80.0-100.0 fL Mean Corpuscular Hemoglobin 28.0 28.0-32.0 pg Mean Corpuscular Hemoglobin Concent 33.6 32.0-36.0 g/dL Red Cell Distribution Width 14.3 11.8-14.3 % Platelet Count 363 140-450 10^3/uL Mean Platelet Volume 7.8 6.9-10.8 fL Neutrophils (%) (Auto) 65.3 37.0-80.0 % Lymphocytes (%) (Auto) 23.0 10.0-50.0 % Monocytes (%) (Auto) 8.7 0.0-12.0 % Eosinophils (%) (Auto) 2.2 0.0-7.0 % Basophils (%) (Auto) 0.8 0.0-2.0 % Neutrophils # (Auto) 5.9 1.6-8.6 10 ^3/uL Lymphocytes # (Auto) 2.1 0.4-5.4 10 ^3/uL Monocytes # (Auto) 0.8 0-1.3 10 ^3/uL Eosinophils # (Auto) 0.2 0-0.8 10 ^3/uL Basophils # (Auto) 0.1 0-0.2 10 ^3/uL Nucleated Red Blood Cells 0.0 % Sodium Level 138 136-145 mmol/L Potassium Level 5.2 H 3.5-5.1 mmol/L Chloride Level 106 98-107 mmol/L Carbon Dioxide Level 19 L 20-31 mmol/L Anion Gap 13 5-15 Blood Urea Nitrogen 81 *H 9-23 mg/dL Creatinine 6.52 H 0.700-1.30 mg/dL Glomerular Filtration Rate Calc 10 >90 mL/min BUN/Creatinine Ratio 12.4 10.0-20.0 Serum Glucose 190 H 74-106 mg/dL Calcium Level 9.1 8.7-10.4 mg/dL Total Bilirubin 0.2 0.2-1.0 mg/dL Aspartate Amino Transferase (AST) 25 13-40 U/L Alanine Aminotransferase (ALT) 35 7-40 U/L Alkaline Phosphatase 161 H 46-116 U/L Total Protein 7.0 5.7-8.2 g/dL Albumin 4.2 3.2-4.8 g/dL Lipase 120 H 12-53 U/L Urine Color Colorless Yellow Urine Clarity Clear Clear Urine pH 6.5 5.0-9.0 Urine Specific [place] 1.010 1.001-1.035 Urine Protein 2+ H Negative Urine Ketones Negative Negative Urine Blood 2+ H Negative /uL Urine Nitrite Negative Negative Urine Bilirubin Negative Negative Urine Urobilinogen Normal Negative mg/dL Urine Leukocyte Esterase Negative Negative /uL Urine RBC 1 0 - 3 /hpf Urine Microscopic WBC 1 0-3 /HPF Urine Squamous Epithelial Cells None seen <5 /hpf Urine Bacteria None seen None Seen /hpf Urine Glucose 4+ H Normal mg/dL X-Ray, Labs, Meds, VS Comment All studies performed the ED were evaluated by me personally. Serum laboratories revealed an anemic state as well as a significant renal concerns that could require dialysis. Additionally, patient had a significantly elevated lipase. Advised patient of the laboratory findings, but patient stated he did not want to be admitted. Patient states he has a an outpatient doctor that he will manage his conditions with. Advised the patient that there could be significant medical concerns if he leaves the facility including the possibility of . Patient stated he understood and signed the AMA form prior to leaving the campus. Time of 1ST Reevaluation: 00:09 Reevaluation 1ST: Unchanged Consultation: PCP Patient Education/Counseling: Diagnosis, Treatment, Need For Follow Up Family Education/Counseling: Diagnosis, Treatment, No Family Present Departure 1 Departure Time of Disposition: 00:10 Impression: Primary Impression: End stage renal disease Additional Impressions: Elevated lipase Anemia Disposition: 07 LEFT AGAINST MEDICAL ADVICE Condition: Stable Discharged With: Self Critical Care Note Critical Care Time?: No Stability Stability form required: No Heart Score Heart Score: Heart Score Response (Comments) Value History N/A 0 EKG N/A 0 Age N/A 0 Risk Factors N/A 0 Troponin N/A 0 Total 0 I personally scribed for TYRONE RICHEY PAC ([email or web address]) on 04/17/25 at 22:56. Electronically submitted by Luis Daniel Vazquez ([email or web address]). TYRONE RICHEY PAC Apr 17, 2025 22:56
[2025-04-17 23:00] LABS: Urine Bacteria None Seen /hpf (None Seen)
[2025-04-17 23:14] LABS: Basophils # (auto) 0.1 10 ^3/uL (0-0.2); Basophils % (auto) 0.8 % (0.0-2.0); Eosinophils # (auto) 0.2 10 ^3/uL (0-0.8); Eosinophils % (auto) 2.2 % (0.0-7.0); Hematocrit 28.2 % (41.0-53.0); Hemoglobin 9.5 g/dL (13.5-17.5); Lymphocytes # (auto) 2.1 10 ^3/uL (0.4-5.4); Mean Corpuscular Hgb Conc. 33.6 g/dL (32.0-36.0); Mean Corpuscular Volume 83.4 fL (80.0-100.0); Monocytes # (auto) 0.8 10 ^3/uL (0-1.3); Monocytes % (auto) 8.7 % (0.0-12.0); Neutrophils # (auto) 5.9 10 ^3/uL (1.6-8.6); Neutrophils % (auto) 65.3 % (37.0-80.0); Platelet Count (auto) 363 10^3/uL (140-450); Red Blood Cells 3.38 10^6/uL (4.5-5.90); Red Cell Distribution Width 14.3 % (11.8-14.3); White Blood Cell 9.1 10^3/uL (4.4-10.8)
[2025-04-17 23:36] LABS: Alanine Aminotransferase 35 U/L (7-40); Albumin 4.2 g/dL (3.2-4.8); Anion Gap 13 (5-15); Aspartate Aminotransferase 25 U/L (13-40); BUN/Creatinine Ratio 12.4 (10.0-20.0); Calcium 9.1 mg/dL (8.7-10.4); Chloride 106 mmol/L (98-107); Sodium 138 mmol/L (136-145)
[2025-04-17 23:43] LABS: Carbon Dioxide 19 mmol/L (20-31); Glucose 190 mg/dL (74-106); Potassium 5.2 mmol/L (3.5-5.1)
[2025-04-17 23:44] LABS: Alkaline Phosphatase 161 U/L (46-116); Bilirubin, Total 0.2 mg/dL (0.2-1.0); Blood Urea Nitrogen 81 mg/dL (9-23)
[2025-04-17 23:53] LABS: Lipase 120 U/L (12-53)
[2025-04-17 23:55] LABS: Urine Blood 2+ /uL (Negative); Urine Clarity Clear (Clear); Urine Color Colorless (Yellow); Urine Protein, UAD 2+ (Negative); Urine Squamous Epithelial Cell None Seen /hpf (<5); Urine Urobilinogen Normal (Negative); Urine WBC 1 /HPF (0-3); Urine pH 6.5 (5.0-9.0)
[2025-04-17 23:57] VITALS: BP 137/84; PULSE 86; RESP 17; TEMP 97.6; O2SAT 99
== END 2025-04-18 | disposition left against medical advice (07) ==
LOC: ER 22:35
DX: N18.6 End stage renal disease (principal); R74.8 Abnormal levels of other serum enzymes; D64.9 Anemia, unspecified; E11.22 Type 2 diabetes mellitus with diabetic chronic kidney disease; F17.210 Nicotine dependence, cigarettes, uncomplicated; Z79.84 Long term (current) use of oral hypoglycemic drugs; Z79.899 Other long term (current) drug therapy
CPT/HCPCS: 36415; 80053; 81001; 83690; 85025

== ENCOUNTER 2025-04-19 19:10 | Inpatient (IN) | payer MEDICAID ==
[~2025-04-19] VITALS: Ht 167.6 cm; Wt 75.5 kg
--- NOTE | 2025-04-19 19:58 | ED.PDOC ---
History of Present Illness HPI Comments 54y M who presents to the ED for chief complaint of abnormal labs. - pt was sent by PCP for abnormal labs concerning pts kidney failure - pt was at [facility] friday but left before treatment was started - pt in the ED, otherwise denies any associated complaints or pain Past Medical history: HIV, DM, ESRD on dialysis Past Surgical history: denies Medications: denies Allergies: denies Social History: denies ETOH, endorses tobacco use, denies drug use HPI: Poor Historian. Past Medical History: REVIEW OF SYSTEMS: CONSTITUTIONAL: Denies acute: fever, diaphoresis, chills, generalized weakness. HEAD: Denies acute: headache, photophobia Eyes: Denies acute: Double vision, vision loss, eye pain, eye discharge. EARS: Denies acute: tinnitus, hearing loss, ear discharge, ear pain, THROAT: Denies acute: sore throat, swelling, difficulty swallowing , pain with swallowing, change in voice. NECK: Denies acute: neck pain, neck swelling, stiff neck. HEART: Denies acute : chest pain, palpitations, LUNGS: Denies acute: SOB, wheezing, cough, hemoptysis ABDOMEN: Denies acute: abdominal pain, Nausea, Vomiting, diarrhea, melena , hematemesis, hematochezia SKIN: Denies acute: rash, redness, lesions, itchiness. EXTREMITIES: Denies acute: calf pain, numbness, tingling, weakness, denies pain in extremity. Denies acute: Low back pain. Neuro: Denies acute: focal neurological deficit, motor or sensory focal neurological deficit, tremors, seizure like activity, confusion, dizziness, change in mental status, loss of bowel or bladder function, cauda equina like symptoms. : Denies acute: dysuria, hematuria, flank pain, increase in urinary frequency. PSYCH: Denies acute: hallucination, suicidal ideation, homicidal ideation. PHYSICAL EXAM: General: ----no----acute distress, awake and alert. Head: normocephalic, atraumatic. Neck: supple, trachea is midline, no swelling. Throat: Normal phonation. Eyes:, no erythema, no purulent discharge, no proptosis, no icterus. Heart: regular rate, regular rhythm, no significant murmur appreciated. Lungs: no apparent respiratory distress, Able to speak in full sentences. No wheezing, no rhonchi, no crackles. No stridors Clear to auscultation bilaterally. Abdomen: non tender to palpation, non distended, soft, no guarding, no rebound, + bowel sounds. Neuro: Awake, Alert, oriented to name, self, situation, follows commands GCS=15. Speech is normal. Skin: no petechia, no purpura, no cyanosis, non-pale, not jaundice. Lower extremities: --1/4 bilateral - Pitting edema no deformity, no focal swelling, no calf TTP. Makes eye contact. moves all four extremities. Face: no apparent facial droop. Ambulating in the ED independently. ED COURSE: Time Seen by MD: 19:20 Primary Care Provider: ABHISHEK Oviedo Notes: Allergies Allergies: Coded Allergies: No Known Drug Allergy (Verified Allergy, Unknown, 10/27/24) Home Meds Active Scripts Sodium Zirconium Cyclosilicate (Lokelma) 5 Gm John, 10 GM PO TID for 30 Days, #90 PACK 3 Refills Prov:EVER RIVERA DO 07/24/24 Sodium Bicarbonate (Sodium Bicarbonate) 650 Mg Tab, 1300 MG PO TID for 30 Days, #180 TAB 3 Refills Prov:EVER RIVERA DO 07/24/24 Losartan Potassium (Losartan Potassium) 50 Mg Tab, 50 MG PO DAILY for 30 Days, #30 TAB 3 Refills Prov:EVER RIVERA DO 07/24/24 Glipizide (Glipizide) 10 Mg Tab, 1 TAB PO BID, #180 TAB 3 Refills Prov:ANNA MARIE MENDOZA MD 10/15/22 Reported Medications Calcium Acetate (Phosphate Bin (Calcium Acetate) 667 Mg Cap, 667 MG PO TIDWM, CAP WITH MEALS 04/20/25 Furosemide (Furosemide) 80 Mg Tab, 1 TAB PO DAILY, #30 TAB 5 Refills 04/20/25 Gabapentin (Gabapentin) 100 Mg Cap, 1 CAP PO TID, #90 CAP 2 Refills 04/20/25 Losartan Potassium (Losartan Potassium) 50 Mg Tab, 1 TAB PO DAILY 07/21/24 Pioglitazone Hydrochloride (PIOGLITAZONE HCL) 30 Mg Tab, 1 TAB PO DAILY 07/21/24 Empagliflozin (Jardiance) 25 Mg Tab, 1 TAB PO DAILY 09/25/23 Hctz (Hydrochlorothiazide) 25 Mg Tab, 1 TAB PO DAILY 09/25/23 Amlodipine Besylate (Amlodipine Besylate) 10 Mg Tab, 1 TAB PO DAILY 09/25/23 Discontinued Reported Medications Fenofibrate (FENOFIBRATE) 145 Mg Tab, 1 TAB PO DAILY 07/21/24 Atorvastatin Calcium (ATORVASTATIN CALCIUM) 40 Mg Tab, 1 TAB PO DAILY 09/25/23 Information Source: Patient Past Medical History PAST MEDICAL HISTORY: CKF, DM, HIV Surgical History: Denies all surgeries Family History Family History: Family hx of DM Social History Smoker: Cigarettes Alcohol: Denies ETOH Use Drugs: Denies Drug Use Lives In: Home Was a procedure done? Was a procedure done?: No Differential Dx Considerations may include: Electrolyte abnormality X-Ray, Labs, Meds, VS Vital Signs Date Time Temp Pulse Resp B/P (MAP) Pulse Ox O2 Delivery O2 Flow Rate FiO2 04/19/25 20:33 88 04/19/25 20:00 86 21 99 Room Air* 0 21 04/19/25 20:00 98.3 86 21 153/78 (103) 99 98.3 04/19/25 19:20 97.9 86 18 151/84 (106) 99 97.9 Lab Test 04/19/25 20:06 Range/Units White Blood Count 8.6 4.4-10.8 10^3/uL Red Blood Count 3.33 L 4.5-5.90 10^6/uL Hemoglobin 9.5 L 13.5-17.5 g/dL Hematocrit 28.0 L 41.0-53.0 % Mean Corpuscular Volume 84.3 80.0-100.0 fL Mean Corpuscular Hemoglobin 28.6 28.0-32.0 pg Mean Corpuscular Hemoglobin Concent 33.9 32.0-36.0 g/dL Red Cell Distribution Width 14.5 H 11.8-14.3 % Platelet Count 369 140-450 10^3/uL Mean Platelet Volume 7.8 6.9-10.8 fL Neutrophils (%) (Auto) 73.7 37.0-80.0 % Lymphocytes (%) (Auto) 16.7 10.0-50.0 % Monocytes (%) (Auto) 6.2 0.0-12.0 % Eosinophils (%) (Auto) 2.3 0.0-7.0 % Basophils (%) (Auto) 1.1 0.0-2.0 % Neutrophils # (Auto) 6.3 1.6-8.6 10 ^3/uL Lymphocytes # (Auto) 1.4 0.4-5.4 10 ^3/uL Monocytes # (Auto) 0.5 0-1.3 10 ^3/uL Eosinophils # (Auto) 0.2 0-0.8 10 ^3/uL Basophils # (Auto) 0.1 0-0.2 10 ^3/uL Nucleated Red Blood Cells 0.0 % Sodium Level 139 136-145 mmol/L Potassium Level 5.6 *H 3.5-5.1 mmol/L Chloride Level 111 H 98-107 mmol/L Carbon Dioxide Level 17 L 20-31 mmol/L Anion Gap 11 5-15 Blood Urea Nitrogen 72 H 9-23 mg/dL Creatinine 5.75 H 0.700-1.30 mg/dL Glomerular Filtration Rate Calc 11 >90 mL/min BUN/Creatinine Ratio 12.5 10.0-20.0 Serum Glucose 129 H 74-106 mg/dL Calcium Level 8.8 8.7-10.4 mg/dL Phosphorus Level 7.9 H 2.4-5.1 mg/dL Magnesium Level 2.5 1.6-2.6 mg/dL Total Bilirubin 0.2 0.2-1.0 mg/dL Aspartate Amino Transferase (AST) 29 13-40 U/L Alanine Aminotransferase (ALT) 39 7-40 U/L Alkaline Phosphatase 154 H 46-116 U/L B-Type Natriuretic Peptide 189.85 0-100 pg/mL Total Protein 6.6 5.7-8.2 g/dL Albumin 3.9 3.2-4.8 g/dL Lipase 115 H 12-53 U/L Thyroid Stimulating Hormone (TSH) 0.84 0.55-4.78 uIU/mL HIV (1&2) Antibody Negative Negative Time of 1ST Reevaluation: 00:00 Reevaluation 1ST: Patient Education/Counseling: Diagnosis, Treatment Family Education/Counseling: No Family Present Comments Patient presented with the above HPI.--end-stage renal disease----workup was initiated. patient was found with the above mentioned diagnosis. Patient was sent by his PCP to be admitted to the hospital. He was here recently and refused to be admitted but he agrees to be admitted this time for further workup of his kidney condition. the following medications were ordered: please refer to order lists of meds and tests obtained by myself Dr. Romero. Patient ED course and VS have been stabilized. Patient has been reassessed in the ED and remained in a stable condition. Pertinent incidental findings were discussed with the patient and/or family. Patient/family voices understanding and is agreeable with plan. Patient has been observed in the ED adequate length of time to insure improvement/stability. Escalation of care considered: Consideration of escalation to observation or admission Patient was ADMITTED to the medicine team for further evaluation and treatment of their presentation. Hyperkalemia protocol/treatment was initiated by the admitting team. All the reports of any imaging studies that were ordered by myself were reviewed by myself. Departure 1 Departure Time of Disposition: 20:04 Impression: Primary Impression: End stage renal disease Additional Impressions: Hyperkalemia Anemia Disposition: ADMITTED INPATIENT Admit to: Tele Condition: Guarded Discharged With: Self Critical Care Note Critical Care Time?: No I personally scribed for SORAIDA ROMERO DO ([email or web address]) on 04/19/25 at 19:58. Electronically submitted by Diane Alvarenga ([email or web address]). I personally scribed for SORAIDA ROMERO DO ([email or web address]) on 04/19/25 at 20:22. Electronically submitted by Diane GUARDADO). SORAIDA ROMERO DO Apr 19, 2025 19:58
[2025-04-19 20:00] VITALS: PULSE 86; RESP 21; O2SAT 99
[2025-04-19 20:24] LABS: Basophils # (auto) 0.1 10 ^3/uL (0-0.2); Basophils % (auto) 1.1 % (0.0-2.0); Eosinophils # (auto) 0.2 10 ^3/uL (0-0.8); Eosinophils % (auto) 2.3 % (0.0-7.0); Hemoglobin 9.5 g/dL (13.5-17.5); Lymphocytes # (auto) 1.4 10 ^3/uL (0.4-5.4); Lymphocytes % (auto) 16.7 % (10.0-50.0); Mean Corpuscular Hemoglobin 28.6 pg (28.0-32.0); Mean Corpuscular Hgb Conc. 33.9 g/dL (32.0-36.0); Mean Corpuscular Volume 84.3 fL (80.0-100.0); Monocytes # (auto) 0.5 10 ^3/uL (0-1.3); Monocytes % (auto) 6.2 % (0.0-12.0); Neutrophils # (auto) 6.3 10 ^3/uL (1.6-8.6); Neutrophils % (auto) 73.7 % (37.0-80.0); Platelet Count (auto) 369 10^3/uL (140-450); Red Blood Cells 3.33 10^6/uL (4.5-5.90); Red Cell Distribution Width 14.5 % (11.8-14.3); White Blood Cell 8.6 10^3/uL (4.4-10.8)
[2025-04-19 20:42] LABS: Alanine Aminotransferase 39 U/L (7-40); Albumin 3.9 g/dL (3.2-4.8); Anion Gap 11 (5-15); Aspartate Aminotransferase 29 U/L (13-40); BUN/Creatinine Ratio 12.5 (10.0-20.0); Calcium 8.8 mg/dL (8.7-10.4); Sodium 139 mmol/L (136-145); Total Protein 6.6 g/dL (5.7-8.2)
[2025-04-19 20:44] LABS: Alkaline Phosphatase 154 U/L (46-116); Bilirubin, Total 0.2 mg/dL (0.2-1.0); Blood Urea Nitrogen 72 mg/dL (9-23); Carbon Dioxide 17 mmol/L (20-31); Chloride 111 mmol/L (98-107); Glucose 129 mg/dL (74-106)
[2025-04-19] MEDS ORDERED: DOCUSATE SOD 100 MG CAP PO PRN (20:45)
[2025-04-19] MEDS ORDERED: ONDANSETRON HCL 4 MG/2 ML VIAL IV PRN (20:45)
[2025-04-19] MEDS ORDERED: NITROGLYCERIN 0.4 MG SL TAB SL PRN (20:45)
[2025-04-19] MEDS ORDERED: ACETAMINOPHEN 325 MG TAB PO PRN (20:45)
[2025-04-19] MEDS ORDERED: MORPHINE SULFATE INJ 2 MG/ml SYRG IV PRN (20:45)
[2025-04-19] MEDS ORDERED: MORPHINE SULFATE 4 MG/ML SYR/VIAL IV PRN (20:45)
[2025-04-19] MEDS ORDERED: DEXTROSE (50%) 50ML SYRG IV PRN (20:45)
[2025-04-19 20:53] LABS: Potassium 5.6 mmol/L (3.5-5.1)
[2025-04-19] MEDS ORDERED: NICOTINE 14 MG/24HR TOPICAL PATCH TD PRN (21:30)
[2025-04-19] MEDS: SODIUM ZIRCONIUM CYCL 10 GM PAK PO SCH (21:40)
[2025-04-19] MEDS: DEXTROSE (50%) 50ML SYRG IV ONE (21:40)
[2025-04-19] MEDS: SODIUM BICARB 8.4% 50Meq/50ml SYR INJ IV ONE (21:40)
[2025-04-19] MEDS: CALCIUM GLUC 1,000mg/50ml-NS 50 ML IV ONE (21:40)
[2025-04-19] MEDS: ACCU-CHEK COMFORT CURVE STRIP VI SCH (21:41)
[2025-04-19] MEDS: InsuLIN REG 1unit/0.01ml Soln (100units/ml) SC SCH (21:41)
[2025-04-19] MEDS: FUROSEMIDE 20 MG/2 ML VIAL IV ONE (21:41)
[2025-04-19] MEDS: InsuLIN REG 1unit/0.01ml Soln (100units/ml) IV ONE (21:43)
[2025-04-19 21:54] LABS: Magnesium 2.5 mg/dL (1.6-2.6)
[2025-04-19 21:56] LABS: Phosphorus 7.9 mg/dL (2.4-5.1)
[2025-04-19] MEDS: ATORVASTATIN 20 MG TAB PO SCH (21:56)
--- NOTE | 2025-04-19 22:21 | DVHHPRES ---
History of Present Illness Resident Creating Document: FUAD KIM RESIDENT History of Present Illness Mr. Barnes, a 54-year-old male with a history of (questionable) HIV, moderately controlled diabetes mellitus (on oral hypoglycemics with as needed insulin), diabetic neuropathy, poor medical adherence, dyslipidemia, CKD IV progressed to end-stage renal disease (ESRD) NOT yet on dialysis, previous osteomyelitis s/p left toe amputation presents to the ED following referral by his primary care provider due to abnormal laboratory results concerning for worsening kidney function. The patient reports that he was at [facility] on Friday but left prior to receiving treatment. He currently denies any associated symptoms, including pain. He denies alcohol and drug use but endorses tobacco use. He is not currently taking any medications and has no known drug allergies or prior surgical history. PCP Dr. Davis, Head Greenskeeper Dr. Dillon, the patient is reluctant to starting dialysis. Was accompanied by and daughter. The patient was seen in the ED on 04/17 but left prematurely. Past Medical History (questionable) HIV, moderately controlled diabetes mellitus (on oral hypoglycemi cs with as needed insulin), diabetic neuropathy, poor medical adherence, dyslipidemia, CKD IV progressed to end-stage renal disease (ESRD) NOT yet on dialysis, previous osteomyelitis of left foot Past Surgical History previous osteomyelitis s/p left toe amputation Family History: DM, Hyperlipidemia, Hypertension Family History non contributory to admission Smoke: # pack years (30) ALCOHOL: rare Drugs: None Lives: with Family (with and daughter ) Domestic Violence: Neg Review of Systems Constitutional: Yes: Malaise; No: Fever, Chills, Sweats, Weakness, Other Eyes: No: Pain, Vision change, Conjunctivae inflammation, Eyelid inflammation, Other, Redness ENT: No: Ear pain, Ear discharge, Nose pain, Nose discharge, Nose congestion, Mouth pain, Mouth swelling, Throat pain, Throat swelling, Other Respiratory: No: Cough, Dry, Shortness of breath, SOB with excertion, Wheezing, Hemoptysis, Pleuritic Pain, Sputum, Wheezing, Other Cardiovascular: No: Chest Pain, Palpitations, Orthopnea, Paroxysmal Noc. Dyspnea, Edema, Lt Headedness, Other Gastrointestinal: Constipation; No: Nausea, Vomiting, Abdominal Pain, Diarrhea, Melena, Hematochezia, Other Genitourinary: No Dysuria, No Frequency, No Incontinence, No Hematuria, No Retention; Other (reduced urine output) Musculoskeletal: No: other, neck pain, shoulder pain, arm pain, back pain, hand pain, leg pain, foot pain Skin: No: Rash, Lesions, Jaundice, Bruising, Other Neurological: Numbness, Other (neuropathy); No: Weakness, Incoordination, Change in speech, Confusion, Seizures Allergies: Coded Allergies: No Known Drug Allergy (Verified Allergy, Unknown, 10/27/24) Medications Current Medications Medications Dose Ordered Sig/Cassi Route Start Time Stop Time Status Last Admin Dose Admin Ondansetron HCl 4 mg Q4HP PRN IV 04/19/25 20:45 Docusate Sodium 100 mg BIDPRN PRN PO 04/19/25 20:45 Acetaminophen 650 mg Q6HP PRN PO 04/19/25 20:45 Morphine Sulfate 2 mg Q4HPRN PRN IV 04/19/25 20:45 Nitroglycerin 0.4 mg Q5MINP PRN SL 04/19/25 20:45 Morphine Sulfate 2 mg Q30M PRN IV 04/19/25 20:45 Diagnostic Test (Pha) 1 strip ACHS 04/19/25 22:00 04/19/25 21:41 1 STRIP Insulin Human Regular ACHS SC 04/19/25 22:00 Dextrose 50 ml UD PRN IV 04/19/25 20:45 Zirconium Oxide 10 gm TID PO 04/19/25 22:00 04/21/25 14:01 04/19/25 21:40 10 GM Nicotine 1 patch DAILY PRN TD 04/19/25 21:30 04/29/25 23:59 Atorvastatin Calcium 40 mg HS PO 04/19/25 22:00 04/29/25 22:00 Exam Vital Signs Vital Signs Date Time Temp Pulse Resp B/P (MAP) Pulse Ox O2 Delivery O2 Flow Rate FiO2 04/19/25 21:41 153/78 04/19/25 20:00 86 21 99 Room Air* 0 21 04/19/25 20:00 98.3 98.3 General Appearance: Alert, Oriented X3, Cooperative, moderate distress (patient cannot stay still due to uncomfort d/t neuropathy ) HEENT: Atraumatic, PERRLA, EOMI, Mucous membr. moist/pink Respiratory: Clear to auscultation, Normal air movement, Other (basal rales ) Cardiovascular: Regular rate, Normal S1, Normal S2, No murmurs Abdominal: Normal bowel sounds, Soft, No tenderness, No hepatospenomegaly, No masses Extremities: No clubbing, No cyanosis, No edema, Normal pulses, No tenderness/swelling Skin: No rashes, No breakdown, No significant lesion Neuro: Normal gait, Normal speech, Strength at 5/5 X4 ext, Normal tone, Sensation intact Psych/Mental Status: Mental status NL, Mood NL Labs/Xrays Labs Test 04/19/25 21:33 04/19/25 20:06 Range/Units POC Glucose 129 H 70-106 mg/dl White Blood Count 8.6 4.4-10.8 10^3/uL Red Blood Count 3.33 L 4.5-5.90 10^6/uL Hemoglobin 9.5 L 13.5-17.5 g/dL Hematocrit 28.0 L 41.0-53.0 % Mean Corpuscular Volume 84.3 80.0-100.0 fL Mean Corpuscular Hemoglobin 28.6 28.0-32.0 pg Mean Corpuscular Hemoglobin Concent 33.9 32.0-36.0 g/dL Red Cell Distribution Width 14.5 H 11.8-14.3 % Platelet Count 369 140-450 10^3/uL Mean Platelet Volume 7.8 6.9-10.8 fL Neutrophils (%) (Auto) 73.7 37.0-80.0 % Lymphocytes (%) (Auto) 16.7 10.0-50.0 % Monocytes (%) (Auto) 6.2 0.0-12.0 % Eosinophils (%) (Auto) 2.3 0.0-7.0 % Basophils (%) (Auto) 1.1 0.0-2.0 % Neutrophils # (Auto) 6.3 1.6-8.6 10 ^3/uL Lymphocytes # (Auto) 1.4 0.4-5.4 10 ^3/uL Monocytes # (Auto) 0.5 0-1.3 10 ^3/uL Eosinophils # (Auto) 0.2 0-0.8 10 ^3/uL Basophils # (Auto) 0.1 0-0.2 10 ^3/uL Nucleated Red Blood Cells 0.0 % Sodium Level 139 136-145 mmol/L Potassium Level 5.6 *H 3.5-5.1 mmol/L Chloride Level 111 H 98-107 mmol/L Carbon Dioxide Level 17 L 20-31 mmol/L Anion Gap 11 5-15 Blood Urea Nitrogen 72 H 9-23 mg/dL Creatinine 5.75 H 0.700-1.30 mg/dL Glomerular Filtration Rate Calc 11 >90 mL/min BUN/Creatinine Ratio 12.5 10.0-20.0 Serum Glucose 129 H 74-106 mg/dL Calcium Level 8.8 8.7-10.4 mg/dL Phosphorus Level 7.9 H 2.4-5.1 mg/dL Magnesium Level 2.5 1.6-2.6 mg/dL Total Bilirubin 0.2 0.2-1.0 mg/dL Aspartate Amino Transferase (AST) 29 13-40 U/L Alanine Aminotransferase (ALT) 39 7-40 U/L Alkaline Phosphatase 154 H 46-116 U/L B-Type Natriuretic Peptide 189.85 0-100 pg/mL Total Protein 6.6 5.7-8.2 g/dL Albumin 3.9 3.2-4.8 g/dL Lipase 115 H 12-53 U/L Thyroid Stimulating Hormone (TSH) 0.84 0.55-4.78 uIU/mL Assessment/Plan Assessment/Plan Assessment: # Reluctant to initiate dialysis with abnormal labs elevated BUN of 81> 72 , not in complete anuria # acute hyperkalemia of 5.6 # Known CKD IV follows Dr. Dillon, on conservative medical treatment with worsening renal function # Secondary Mild Hypervolemia with Acute Azotemia d/t denial to initiation of dialysis in ESRD # medical nonadherence # ESRD impending initiation of hemodialysis # Diabetes mellitus, on oral hypoglycemics + as needed NovoLog insulin. HbA1c 7.8 last checked 04/06/2025 BG acceptable. # History of HIV, questionable, no workup available # Reluctant to hemodialysis with elevated BUN, creatinine # moderate hyperkalemia likely due to above, stopped lokelma at home # Essential hypertension, uncontrolled # dyslipidemia # normocytic Anemia, no signs of active bleeding or blood loss, likely due to underlying renal disease H&H stable # hypovitaminosis D # secondary hyperphosphatemia secondary due to ESRD. # history of hepatitis a positive in 2023. # Diabetic neuropathy # status post amputation of 5th mid metatarsal of left foot, osteomyelitis # nonhealing stable fracture for 4th metatarsal of the left foot # likely Charcot's foot # Nicotine abuse with active smoker. # ? Pancreatitis : Elevated lipase, non-discrete pain, mildly fluid overloaded with ESRD Plan: # telemetry monitoring, hyperkalemia protocol with Lokelma, IV insulin and dextrose, obtain 12 lead EKG. # continue home dose of amlodipine 10, we will avoid nephrotoxic, target blood pressure 130/90 as per aha/ ACC guidelines For diabetic adult. # continue atorvastatin 40 mg daily And fenofibrate held at hospital. # daily CBC, CMP, electrolytes with as needed corrections with transfusion threshold of 7 of hemoglobin. # Nephrology consult for inpatient initiation hemodialysis. the patient and family counseled regarding the options. # Renal diet, moderate fluid restriction, low potassium + phosphate diet # mild SSI, holding home antidiabetic medications, target BG 140-180 in- hospital. # Daily nicotine patch as needed, for smoking craving, 11 minutes bedside smoking cessation counseling done. # TID gabapentin 300 increased from home dose of 100 bid # careful use of insulin with worsening renal function, counseled. # started on lokelma, and phosphate binder. # recheck HIV status for confirmation, patient denies knowledge of it. # CT abdomen pelvis without contrast, limited scope of iv hydration with already fluid overloaded state and ESRD with near anuria Code Status: Full code, goals of care discussion with patient and family with care plan discussion, total 37 minutes. Admitted inpatient with close clinical management, telemetry and nephrology consult for further discussion of HD. Patient and family agreeable. Discussed with Dr. Davis. Plan discussed with: Patient, Spouse, Daughter My Orders Orders - FUAD KIM RESIDENT Procedure Category Date Status Time Admit ADMIT 04/19/25 Transmitted 20:40 Allergies BRITTANY 04/19/25 In Process 20:40 Code Status CODE 04/19/25 Transmitted 20:40 Renal DIET 04/20/25 Transmitted Standard(2gna,3gk,Lopho) Breakfast Ondansetron Hcl PHA 04/19/25 In Process (Zofran) 20:45 Docusate Sodium PHA 04/19/25 In Process Capsule (Colace 20:45 Complete Blood Count LAB 04/20/25 Logged 04:00 Comprehensive LAB 04/20/25 Logged Metabolic Panel 04:00 Echo 2d Mode Cardiac US 04/19/25 Logged DOP 20:40 Condition: Fair BRITTANY 04/19/25 In Process 20:40 Acetaminophen Tablet PHA 04/19/25 In Process (Tylenol Tablet) 20:45 Nitroglycerin PHA 04/19/25 In Process Sublingual (Ntrostat 20:45 Morphine Sulfate PHA 04/19/25 In Process Injection 20:45 Oxygen By Nasal RT 04/19/25 Transmitted Cannula 20:40 Stat Ekg For Chest BRITTANY 04/19/25 In Process Pain 20:40 Notify Of Changes BRITTANY 04/19/25 In Process From Base 20:40 Core Assembly Supervisor For BRITTANY 04/19/25 In Process 24 Hours 20:40 Emergency Dysrhythmia BRITTANY 04/19/25 In Process Protocol 20:40 Rhythm Strips Once BRITTANY 04/19/25 In Process Every Shift 20:40 Glucose Blood PHA 04/19/25 In Process (Accu-Chek Comfort 22:00 Insulin R (Human) PHA 04/19/25 In Process (Insulin R) 22:00 Dextrose 50% Syringe PHA 04/19/25 In Process 20:45 *Dr. [facility] CONS 04/19/25 Transmitted -[place] 20:40 Electrocardigram EKG 04/19/25 Logged 21:03 Potassium LAB 04/20/25 Logged 01:03 Sodium Zirconium PHA 04/19/25 In Process Cyclosilicate 22:00 Hiv 1&2 Antibody LAB 04/19/25 In Process 21:06 Urinalysis LAB 04/19/25 Logged 21:06 Drug Screen LAB 04/19/25 Logged 21:06 Morphine Sulfate PHA 04/19/25 In Process Injection 20:45 Nicotine 14mg/24hr PHA 04/19/25 In Process (Nicoderm 14mg/24hr) 21:30 Atorvastatin (Lipitor) PHA 04/19/25 In Process 22:00 Date of Service: Apr 19, 2025 Billing Provider: GIACOMO DAVIS MD Common Visit Codes: 05444-[id number] INP/OBS CARE (HIGH) Secondary Visit Codes: 87194-[id number] CARE PLAN 30 MINUTES FUAD KIM RESIDENT Apr 19, 2025 22:21
[2025-04-19] MEDS: GABAPENTIN 300 MG CAP PO ONE (22:36)
[2025-04-19] MEDS: SEVELAMER 800 MG TAB PO SCH (22:36)
[2025-04-19] MEDS: SODIUM BICARBONATE 650 MG TAB PO SCH (22:36)
[2025-04-19] MEDS: amLODIPine BESYLATE 5 MG TAB PO ONE (23:15)
[2025-04-20] VITALS (8 sets, daily range): BP systolic 141–162; BP diastolic 80–85; PULSE 83–100; RESP 16–18; TEMP 97.4–98.6; O2SAT 96–100
[2025-04-20] MEDS: CALCIUM GLUC 1,000mg/50ml-NS 50 ML IV ONE (03:02)
[2025-04-20] MEDS: SODIUM BICARB 8.4% 50Meq/50ml SYR INJ IV ONE (03:15)
[2025-04-20] MEDS: DEXTROSE (50%) 50ML SYRG IV ONE (03:15)
[2025-04-20] MEDS: InsuLIN REG 1unit/0.01ml Soln (100units/ml) IV ONE (03:16)
[2025-04-20] MEDS ORDERED: CALC667C PO (04:25)
[2025-04-20] MEDS ORDERED: FURO80TA3 PO (04:25)
[2025-04-20 07:20] LABS: Alanine Aminotransferase 36 U/L (7-40); Alkaline Phosphatase 146 U/L (46-116); Anion Gap 14 (5-15); BUN/Creatinine Ratio 12.3 (10.0-20.0); Blood Urea Nitrogen 71 mg/dL (9-23); Carbon Dioxide 19 mmol/L (20-31); Chloride 108 mmol/L (98-107); Glucose 86 mg/dL (74-106); Potassium 5.2 mmol/L (3.5-5.1); Sodium 141 mmol/L (136-145); Total Protein 6.6 g/dL (5.7-8.2)
[2025-04-20 07:21] LABS: Aspartate Aminotransferase 26 U/L (13-40); Bilirubin, Total 0.3 mg/dL (0.2-1.0)
[2025-04-20 08:24] LABS: Basophils # (auto) 0.1 10 ^3/uL (0-0.2); Basophils % (auto) 0.7 % (0.0-2.0); Eosinophils # (auto) 0.3 10 ^3/uL (0-0.8); Eosinophils % (auto) 2.5 % (0.0-7.0); Hematocrit 27.1 % (41.0-53.0); Hemoglobin 8.9 g/dL (13.5-17.5); Lymphocytes # (auto) 2.8 10 ^3/uL (0.4-5.4); Lymphocytes % (auto) 24.9 % (10.0-50.0); Mean Corpuscular Hemoglobin 27.6 pg (28.0-32.0); Mean Corpuscular Volume 83.4 fL (80.0-100.0); Monocytes # (auto) 0.9 10 ^3/uL (0-1.3); Monocytes % (auto) 8.5 % (0.0-12.0); Neutrophils # (auto) 7.1 10 ^3/uL (1.6-8.6); Neutrophils % (auto) 63.4 % (37.0-80.0); Nucleated Red Blood Cells % 0.1 %; Platelet Count (auto) 383 10^3/uL (140-450); Red Blood Cells 3.24 10^6/uL (4.5-5.90); Red Cell Distribution Width 14.2 % (11.8-14.3); White Blood Cell 11.1 10^3/uL (4.4-10.8)
--- NOTE | 2025-04-20 09:22 | DVH ---
Exam: CT CT AB PEL WO CON-NO ORAL OR IV History: rule out intraabdominal pathology pancreatitis Comparison Study: None Technique: Multidetector spiral CT of the abdomen was performed from lung bases to pubic symphysis. Imaging was performed without IV contrast. Axial, coronal and sagittal multiplanar reformats were ob tained from the axial data set by the technologist. Radiation Dose : 1. Abdomen/Pelvis: CTDIvol 6.67 mGy, DLP 389.33 mGy*cm. Findings: Evaluation of solid organs is limited due to lack of intravenous contrast use. Lung Bases: No acute or significant lung base finding. Normal heart size. No pleural or pericardial effusion. Liver: The liver is normal in size. No focal lesions. Gallbladder and Biliary Tree: Cholelithiasis noted without secondary findings of cholecystitis or bhanu iary obstruction. Spleen: Unremarkable Pancreas: The pancreas is grossly normal in appearance. Adrenal Glands: Unremarkable Kidneys: Kidneys are grossly normal without calculi or hydronephrosis. Bladder: Grossly unremarkable for degree of distention. Bowel: The stomach is grossly normal in appearance. Minimal wall thickening in a few loops of small b owel in the left hemiabdomen may reflect mild enteritis. The appendix is not visualized; however, n o secondary findings of acute appendicitis identified. Moderate to large colonic stool burden Ascites: Absent Lymphadenopathy: No mesenteric, retroperitoneal or periportal lymphadenopathy. Abdominal Wall and Mesentery: Unremarkable. Vasculature: The visualized abdominal aorta is normal in size and caliber. Evaluation of abdominal a nd pelvic vessels is limited due to lack of intravenous contrast. Pelvic Organs: Unremarkable Musculoskeletal: No aggressive focal bony lesions, acute fractures or dislocation. IMPRESSION: 1. Minimal wall thickening in a few loops of small bowel in the left hemiabdomen may reflect mild ent eritis. 2. Moderate to large colonic stool burden. Radiation optimization: All CT scans at this facility use at least one of these dose optimization ivone hniques: automated exposure control mA and/or kV adjustment per patient size (includes targeted exam s where dose is matched to clinical indication) or iterative reconstruction.
[2025-04-20] MEDS: FUROSEMIDE 40 MG/4 ML VIAL IV SCH (10:13)
[2025-04-20] MEDS: amLODIPine BESYLATE 5 MG TAB PO SCH (10:13)
--- NOTE | 2025-04-20 10:14 | DVHCONRES ---
Date Seen: Apr 20, 2025 Resident Creating Document: NICK ROLLINS RESIDENT Referring Physician Dr. Trinidad resident Reason for Consultation ESRD History of Present Illness Mr. Barnes, a 54-year-old male with moderately controlled diabetes mellitus (on oral hypoglycemics with as needed insulin), diabetic neuropathy, hypertension ,poor medical adherence, dyslipidemia, CKD IV progressed to end-stage renal disease (ESRD) NOT yet on dialysis, previous osteomyelitis s/p left toe amputation presents to the ED following referral by his primary care provider due to abnormal laboratory results concerning for worsening kidney function. The patient reports that he was at [facility] on Friday but left prior to receiving treatment. He currently denies any associated symptoms, including pain. He denies alcohol and drug use but endorses tobacco use. He is not currently taking any medications and has no known drug allergies or prior surgical history. PCP Dr. Davis, Manager Public Dr. Dillon, the patient is reluctant to starting dialysis. Was accompanied by and daughter. The patient was seen in the ED on 04/17 but left prematurely against medical advice. The patient was seen and examined on the bedside. He is alert oriented x3. Complaint of nausea and generalized weakness. No other active complaint this time Family History: Diabetes mellitus G8 MOTHER Allergies: Coded Allergies: No Known Drug Allergy (Verified Allergy, Unknown, 10/27/24) Home Meds Active Scripts Sodium Zirconium Cyclosilicate (Lokelma) 5 Gm John, 10 GM PO TID for 30 Days, #90 PACK 3 Refills Prov:GA RIVERAMY Gato DO 07/24/24 Sodium Bicarbonate (Sodium Bicarbonate) 650 Mg Tab, 1300 MG PO TID for 30 Days, #180 TAB 3 Refills Prov:RIVERAGA PuentesMY Gato DO 07/24/24 Losartan Potassium (Losartan Potassium) 50 Mg Tab, 50 MG PO DAILY for 30 Days, #30 TAB 3 Refills Prov:VEER RIVERA DO 07/24/24 Glipizide (Glipizide) 10 Mg Tab, 1 TAB PO BID, #180 TAB 3 Refills Prov:ANNA MARIE MENDOZA MD 10/15/22 Reported Medications Calcium Acetate (Phosphate Bin (Calcium Acetate) 667 Mg Cap, 667 MG PO TIDWM, CAP WITH MEALS 04/20/25 Furosemide (Furosemide) 80 Mg Tab, 1 TAB PO DAILY, #30 TAB 5 Refills 04/20/25 Gabapentin (Gabapentin) 100 Mg Cap, 1 CAP PO TID, #90 CAP 2 Refills 04/20/25 Losartan Potassium (Losartan Potassium) 50 Mg Tab, 1 TAB PO DAILY 07/21/24 Pioglitazone Hydrochloride (PIOGLITAZONE HCL) 30 Mg Tab, 1 TAB PO DAILY 07/21/24 Empagliflozin (Jardiance) 25 Mg Tab, 1 TAB PO DAILY 09/25/23 Hctz (Hydrochlorothiazide) 25 Mg Tab, 1 TAB PO DAILY 09/25/23 Amlodipine Besylate (Amlodipine Besylate) 10 Mg Tab, 1 TAB PO DAILY 09/25/23 Discontinued Reported Medications Fenofibrate (FENOFIBRATE) 145 Mg Tab, 1 TAB PO DAILY 07/21/24 Atorvastatin Calcium (ATORVASTATIN CALCIUM) 40 Mg Tab, 1 TAB PO DAILY 09/25/23 Current Medications Current Medications Medications (Trade) Dose Ordered Sig/Cassi Route PRN Reason Start Time Stop Time Status Last Admin Ondansetron HCl (Zofran) 4 mg Q4HP PRN IV NAUSEA / VOMITING 04/19/25 20:45 04/20/25 07:22 DC Docusate Sodium (Colace Capsule) 100 mg BIDPRN PRN PO FOR CONSTIPATION 04/19/25 20:45 04/20/25 07:22 DC Acetaminophen (Tylenol Tablet) 650 mg Q6HP PRN PO PAIN SCALE 1-3 OR TEMP>100.4 04/19/25 20:45 Morphine Sulfate 2 mg Q4HPRN PRN IV SEVERE PAIN (7-10 PAIN SCALE) 04/19/25 20:45 04/20/25 07:22 DC Nitroglycerin (Ntrostat Sublingual) 0.4 mg Q5MINP PRN SL FOR CHEST PAIN 04/19/25 20:45 04/20/25 07:22 DC Morphine Sulfate 2 mg Q30M PRN IV FOR CHEST PAIN 04/19/25 20:45 04/20/25 07:22 DC Diagnostic Test (Pha) (Accu-Chek Comfort Curve T) 1 strip ACHS 04/19/25 22:00 04/20/25 06:33 Insulin Human Regular (InsuLIN R) ACHS SC 04/19/25 22:00 Dextrose 50 ml UD PRN IV Blood Sugar LESS THAN 60 04/19/25 20:45 Zirconium Oxide (Lokelma) 10 gm TID PO 04/19/25 22:00 04/21/25 14:01 04/20/25 06:27 Nicotine (Nicoderm 14MG/ 24HR) 1 patch DAILY PRN TD AGITATION 04/19/25 21:30 04/29/25 23:59 Atorvastatin Calcium (Lipitor) 40 mg HS PO 04/19/25 22:00 04/29/25 22:00 Sodium Bicarbonate 650 mg TID PO 04/19/25 22:15 04/19/25 22:36 Sevelamer HCl (Renagel) 1,200 mg TIDWM PO 04/19/25 22:15 04/19/25 22:36 Gabapentin (Neurontin Capsule) 300 mg DAILY@2200 PO 04/20/25 22:00 Amlodipine Besylate (Norvasc Tablet) 5 mg DAILY PO 04/20/25 10:00 Furosemide (Lasix Injection) 40 mg BIDD IV 04/20/25 06:30 Review of Systems Constitutional: No: Fever, Chills, Sweats, Weakness, Malaise, Other Eyes: No: Pain, Vision change, Conjunctivae inflammation, Eyelid inflammation, Other, Redness ENT: No: Ear pain, Ear discharge, Nose pain, Nose discharge, Nose congestion, Mouth pain, Mouth swelling, Throat pain, Throat swelling, Other Respiratory: Shortness of breath, improving No: Cough, Dry,Wheezing, Hemoptysis , Pleuritic Pain, Sputum, Wheezing, Other Cardiovascular: No: Chest Pain, Palpitations, Orthopnea, Paroxysmal Noc. Dyspnea, Edema, Lt Headedness, Other Gastrointestinal: No: Nausea, Vomiting, Abdominal Pain, Diarrhea, Constipation, Melena, Hematochezia, Other Musculoskeletal: No: other, neck pain, shoulder pain, arm pain, back pain, hand pain, leg pain, foot pain Neurological:; No: Weakness, Numbness, Incoordination, Change in speech, Confusion, Seizures Vital Signs Vital Signs Date Time Temp Pulse Resp B/P (MAP) Pulse Ox O2 Delivery O2 Flow Rate FiO2 04/20/25 03:41 98.3 100 16 162/84 (110) 100 98.3 04/20/25 03:41 Room Air* 0 21 Physical Exam Physical examination: General Appearance: Alert, Oriented X3, Cooperative, No acute distress HEENT: Atraumatic, PERRLA, EOMI, Mucous membrane moist/pink Respiratory: Clear to auscultation, Normal air movement Cardiovascular: Regular rate, Normal S1, Normal S2, No murmurs, no chest wall tenderness Abdominal: Normal bowel sounds, Soft, No tenderness, No hepatospenomegaly, No masses Extremities: S/p amputation of left 4th toe, No clubbing, No cyanosis, No edema, Normal pulses, No tenderness/swelling Skin: No rashes, No breakdown, No significant lesion Neuro: Normal gait, Normal speech, Strength at 5/5 X4 ext, Normal tone, Sensation intact, Cranial nerves 3-12 NL, Reflexes 2+ Psych/Mental Status: Mental status NL, Mood NL Labs/Diagnostic Data Labs Test 04/20/25 06:04 04/20/25 05:52 04/19/25 20:06 Range/Units POC Glucose 142 H 70-106 mg/dl White Blood Count 11.1 #H 4.4-10.8 10^3/uL Red Blood Count 3.24 L 4.5-5.90 10^6/uL Hemoglobin 8.9 L 13.5-17.5 g/dL Hematocrit 27.1 L 41.0-53.0 % Mean Corpuscular Volume 83.4 80.0-100.0 fL Mean Corpuscular Hemoglobin 27.6 L 28.0-32.0 pg Mean Corpuscular Hemoglobin Concent 33.0 32.0-36.0 g/dL Red Cell Distribution Width 14.2 11.8-14.3 % Platelet Count 383 140-450 10^3/uL Mean Platelet Volume 8.2 6.9-10.8 fL Neutrophils (%) (Auto) 63.4 37.0-80.0 % Lymphocytes (%) (Auto) 24.9 10.0-50.0 % Monocytes (%) (Auto) 8.5 0.0-12.0 % Eosinophils (%) (Auto) 2.5 0.0-7.0 % Basophils (%) (Auto) 0.7 0.0-2.0 % Neutrophils # (Auto) 7.1 1.6-8.6 10 ^3/uL Lymphocytes # (Auto) 2.8 0.4-5.4 10 ^3/uL Monocytes # (Auto) 0.9 0-1.3 10 ^3/uL Eosinophils # (Auto) 0.3 0-0.8 10 ^3/uL Basophils # (Auto) 0.1 0-0.2 10 ^3/uL Nucleated Red Blood Cells 0.1 % Sodium Level 141 136-145 mmol/L Potassium Level 5.2 H 3.5-5.1 mmol/L Chloride Level 108 H 98-107 mmol/L Carbon Dioxide Level 19 L 20-31 mmol/L Anion Gap 14 5-15 Blood Urea Nitrogen 71 H 9-23 mg/dL Creatinine 5.79 H 0.700-1.30 mg/dL Glomerular Filtration Rate Calc 11 >90 mL/min BUN/Creatinine Ratio 12.3 10.0-20.0 Serum Glucose 86 74-106 mg/dL Calcium Level 9.0 8.7-10.4 mg/dL Total Bilirubin 0.3 0.2-1.0 mg/dL Aspartate Amino Transferase (AST) 26 13-40 U/L Alanine Aminotransferase (ALT) 36 7-40 U/L Alkaline Phosphatase 146 H 46-116 U/L Total Protein 6.6 5.7-8.2 g/dL Albumin 4.0 3.2-4.8 g/dL Phosphorus Level 7.9 H 2.4-5.1 mg/dL Magnesium Level 2.5 1.6-2.6 mg/dL B-Type Natriuretic Peptide 189.85 0-100 pg/mL Lipase 115 H 12-53 U/L Thyroid Stimulating Hormone (TSH) 0.84 0.55-4.78 uIU/mL HIV (1&2) Antibody Negative Negative Assessment Assessment: # CKD stage 5 progressing to ESRD # Non compliant with medication and follow up # Hyperkalemia secondary to CKD # Metabolic acidosis # Hyperphosphatemia # Secondary hyperparathyroidism likely due to CKD # Vitamin-D deficiency # Chronic anemia likely due to CKD # Uncontrolled hypertension Plan/Recommendations: - Renal diet - Hyperkalemia protocol management - Lokelma 10 mg PO TID - Continue amlodipine 10 mg p.o. daily and started carvedilol 6.25 mg b.i.d., hydralazine 50 mg bid. - Lasix 120 mg p.o. daily - Retacrit 25454 units sc once - Strict I&O - Avoid nephrotoxic medication - Patient lost follow up with the labor operator for last 1 year - Extensive discussion with the patient regarding dialysis - Patient refused dialysis now and agreed for close follow up with labor operator - We will follow this patient Plan discussed with Dr. Dillon Plan discussed with: Patient, Other (RN) ADDENDUM ADDENDUM Patient is seen and evaluated with resident at bedside. Brief summary patient is known to me for chronic kidney disease stage IV patient has poorly compliant with medical therapy. Patient has high blood pressure and diabetic nephropathy he was sent to the hospital per request of his primary medical physician due to abnormal labs. His current laboratory testing shows metabolic acidosis, hyperkalemia , hyperphosphatemia, anemia of chronic kidney disease. At this time although patient is not uremic given declining blood pressure control declining GFR and multiple electrolyte abnormalities I have recommended patient's start initiation of hemodialysis. Patient currently refuses. Given dialysis is not emergently indicated in the next 24 hours patient has opted to medical management and close renal Clinic follow-up which will include new renal panel. Medications included below include phosphorus binder, renal diet, blood pressure medication changes with discontinue elderly losartan due to hyperkalemia. NICK ROLLINS RESIDENT Apr 20, 2025 10:14 MEERA DILLON MD Apr 20, 2025 21:26
[2025-04-20 10:36] LABS: Hepatitis B Surface Antigen Negative (Negative); Hepatitis C Antibody Negative (Negative)
--- NOTE | 2025-04-20 15:45 | DVHPNRES ---
Progress Note Date Seen: Apr 20, 2025 Resident Creating Document: SHERRI PECK RESIDENT Has the PT tested + for MRSA If YES, has PT been informed?: No Medical Necessity Reason Pt with a Central, PICC or Fol: No Subjective Review of Systems Mr. Barnes, a 54-year-old male with a history of diabetes mellitus (on oral hypoglycemics with as needed insulin), diabetic neuropathy, poor medical adherence, dyslipidemia, CKD V progressed to end-stage renal disease (ESRD) NOT yet on dialysis, previous osteomyelitis s/p left toe amputation presents to the ED following referral by his primary care provider due to abnormal laboratory results concerning for worsening kidney function. The patient reports that he was at [facility] on Friday but left prior to receiving treatment. He currently denies any associated symptoms, including pain. He denies alcohol and drug use but endorses tobacco use. He is not currently taking any medications and has no known drug allergies or prior surgical history. PCP Dr. Davis, Electric Powerline Examiner Dr. Dillon, the patient is reluctant to starting dialysis. Was accompanied by and daughter. The patient was seen in the ED on 04/17 but left prematurely. Past Medical History (questionable) HIV, moderately controlled diabetes mellitus (on oral hypoglycemics with as needed insulin), diabetic neuropathy, poor medical adherence, dyslipidemia, CKD IV progressed to end-stage renal disease (ESRD) NOT yet on dialysis, previous osteomyelitis of left foot Past Surgical History previous osteomyelitis s/p left toe amputation Family History: DM, Hyperlipidemia, Hypertension Family History non contributory to admission Smoke: # pack years (30) ALCOHOL: rare Drugs: None Lives: with Family (with and daughter ) Domestic Violence: Neg 04/20/2015: Nephrology consulted: patient will benefit on dialysis but refused to start it, patient preferred medical management and close f/u with nephologist, was explained very detailed all the risk of his decision, but he still refused to get dialysis Objective vital signs Vital Sign Date Time Temp Pulse Resp B/P (MAP) Pulse Ox O2 Delivery O2 Flow Rate FiO2 04/20/25 10:13 150/80 04/20/25 08:00 85 04/20/25 03:41 98.3 16 100 98.3 04/20/25 03:41 Room Air* 0 21 Total Intake and Output 04/19/25 04/19/25 04/20/25 15:00 23:00 07:00 Intake Total 100 ml Balance 100 ml medications Current Medications Medications Dose Ordered Sig/Cassi Route Start Time Stop Time Status Last Admin Dose Admin Acetaminophen 650 mg Q6HP PRN PO 04/19/25 20:45 Diagnostic Test (Pha) 1 strip ACHS 04/19/25 22:00 04/20/25 11:48 1 STRIP Insulin Human Regular ACHS SC 04/19/25 22:00 Dextrose 50 ml UD PRN IV 04/19/25 20:45 Zirconium Oxide 10 gm TID PO 04/19/25 22:00 04/21/25 14:01 04/20/25 15:15 10 GM Nicotine 1 patch DAILY PRN TD 04/19/25 21:30 04/29/25 23:59 Atorvastatin Calcium 40 mg HS PO 04/19/25 22:00 04/29/25 22:00 Sodium Bicarbonate 650 mg TID PO 04/19/25 22:15 04/20/25 10:13 650 MG Sevelamer HCl 1,200 mg TIDWM PO 04/19/25 22:15 04/20/25 12:31 1,200 MG Gabapentin 300 mg DAILY@2200 PO 04/20/25 22:00 Amlodipine Besylate 5 mg DAILY PO 04/20/25 10:00 04/20/25 10:13 5 MG Furosemide 120 mg DAILY PO 04/21/25 10:00 UNV Carvedilol 6.25 mg Q12HR PO 04/20/25 22:00 UNV Hydralazine HCl 50 mg Q12HR PO 04/20/25 22:00 UNV Examination General Appearance: Alert, Oriented X3, Cooperative, moderate distress (patient cannot stay still due to uncomfort d/t neuropathy ) HEENT: Atraumatic, PERRLA, EOMI, Mucous membr. moist/pink Respiratory: Clear to auscultation, Normal air movement, Other (basal rales ) Cardiovascular: Regular rate, Normal S1, Normal S2, No murmurs Abdominal: Normal bowel sounds, Soft, No tenderness, No hepatospenomegaly, No masses Extremities: No clubbing, No cyanosis, No edema, Normal pulses, No tenderness/swelling Skin: No rashes, No breakdown, No significant lesion Neuro: Normal gait, Normal speech, Strength at 5/5 X4 ext, Normal tone, Sensation intact Psych/Mental Status: Mental status NL, Mood NL laboratory and microbiology Laboratory Tests 04/20/25 05:52 Test 04/20/25 05:52 Range/Units Serum Glucose 86 74-106 mg/dL Microbiology Date/Time Source Procedure Growth Status 04/20/25 04:30 Nose MRSA Screen - Final Complete Problem List/Assessment/Plan Problem List/Assessment/Plan # CKD stage 5 progressing to ESRD # Non compliant with medication and follow up # Hyperkalemia secondary to CKD # Metabolic acidosis # Hyperphosphatemia # Secondary hyperparathyroidism likely due to CKD # Vitamin-D deficiency # Chronic anemia likely due to CKD # Uncontrolled hypertension #Mild enteretis # Constipation #Hypertensive heart disease with diastolic dysfunction #Dyslipidiemia s/p left toe amputation - Renal diet - Hyperkalemia protocol management - Lokelma 10 mg PO TID - Continue amlodipine 10 mg p.o. daily and started carvedilol 6.25 mg b.i.d., hydralazine 50 mg bid. - Lasix 120 mg p.o. daily - Retacrit 81304 units sc once - Gabapentin 300 mg PO - Sevalamer TID - Sodium bicarbonate TID - Strict I&O - Patient refused dialysis now and agreed for close follow up with freezer tunnel operator Case discussed with Dr Sandoval Plan discussed with: Patient, Other (rn) Date of Service: Apr 20, 2025 Billing Provider: SUN SANDOVAL MD Common Visit Codes: [id number] INP/OBS CARE(HIGH) SHERRI PECK RESIDENT Apr 20, 2025 15:45 SUN SANDOVAL MD Apr 21, 2025 12:00
[2025-04-20 16:09] LABS: % Iron Saturation 40.4 % (20-55)
--- NOTE | 2025-04-20 17:35 | DVHSR ---
APPROVED REPORT EXAM: Two-dimensional and M-mode echocardiogram with Doppler and color Doppler. Blood Pressure: 162/84 mmHg INDICATION Chest Pain RISK FACTORS Height: 5'6", Weight: 152 DIMENSIONS LVDd5.3 (3.8-5.7cm)LA (2D)4.7 (1.9-4.0cm)Aortic Root3.4 (2.0-3.7cm) LVDs3.4 (2.5-4.0cm)LA (MM) (1.9-4.0cm)Aortic Cusp Exc2.0 (1.5-2.0cm) EF (%) 64.0 (55-70%)Rt. Atrium4.1 (1.9-4.0cm)Asc. Aorta3.3 cm IVSd1.2 (0.7-1.1cm)RV (D)4.6 (1.8-2.4cm) PWd1.1 (0.7-1.1cm) Mitral Valve MitralMitral Stenosis E wave1.08m/sMV Mean GR.mmHg A wave1.09m/sMV Peak GR.mmHg E/A ratio1.02D MVAcm2 DECEL [id number] 1/2 Timems Aortic Valve Aortic ValveAortic Stenosis V11.18m/Fernando Mean GR.7mmHg V21.74m/Fernando Peak GR.12mmHg LVOT Diameter2.3 (1.8-2.4cm)Doppler AVA2.82cm2 Pulmonic Valve V21.32m/s Conclusion lvef 60% mild LVH grade 1 diastolic dysfunction normal rv function left atrium enlarged no severe valve abnormaliteis noted
[2025-04-20] MEDS: LACTULOSE 20Gm/30ML SOLN PO ONE (17:56)
[2025-04-20] MEDS: EPOETIN ALFA-EPBX 10,000 UNIT/1ML VIAL SC ONE (20:20)
[2025-04-20] MEDS: hydrALAZINE HCL 25 MG TAB PO SCH (22:32)
[2025-04-20] MEDS: GABAPENTIN 300 MG CAP PO SCH (22:32)
[2025-04-20] MEDS: CARVEDILOL 3.125 MG TAB PO SCH (22:34)
[2025-04-21] VITALS (8 sets, daily range): BP systolic 140–168; BP diastolic 78–88; PULSE 75–87; RESP 17–20; TEMP 97.8–98.7; O2SAT 97–100
[2025-04-21 07:17] LABS: Basophils # (auto) 0.1 10 ^3/uL (0-0.2); Basophils % (auto) 0.9 % (0.0-2.0); Eosinophils # (auto) 0.2 10 ^3/uL (0-0.8); Eosinophils % (auto) 2.5 % (0.0-7.0); Hematocrit 25.9 % (41.0-53.0); Hemoglobin 8.9 g/dL (13.5-17.5); Lymphocytes # (auto) 1.7 10 ^3/uL (0.4-5.4); Mean Corpuscular Hemoglobin 28.6 pg (28.0-32.0); Mean Corpuscular Hgb Conc. 34.5 g/dL (32.0-36.0); Monocytes # (auto) 0.7 10 ^3/uL (0-1.3); Monocytes % (auto) 7.9 % (0.0-12.0); Neutrophils # (auto) 6.4 10 ^3/uL (1.6-8.6); Neutrophils % (auto) 69.7 % (37.0-80.0); Platelet Count (auto) 332 10^3/uL (140-450); Red Blood Cells 3.12 10^6/uL (4.5-5.90); Red Cell Distribution Width 14.3 % (11.8-14.3); White Blood Cell 9.1 10^3/uL (4.4-10.8)
[2025-04-21 07:27] LABS: Potassium 4.2 mmol/L (3.5-5.1); Sodium 140 mmol/L (136-145)
[2025-04-21 07:28] LABS: Anion Gap 13 (5-15); Carbon Dioxide 20 mmol/L (20-31); Chloride 107 mmol/L (98-107)
[2025-04-21 07:30] LABS: Calcium 8.2 mg/dL (8.7-10.4)
[2025-04-21 07:33] LABS: Glucose 95 mg/dL (74-106)
[2025-04-21 07:34] LABS: BUN/Creatinine Ratio 11.7 (10.0-20.0)
[2025-04-21 07:36] LABS: Blood Urea Nitrogen 66 mg/dL (9-23)
[2025-04-21] MEDS: FUROSEMIDE 40 MG TAB PO SCH (09:05)
--- NOTE | 2025-04-21 11:39 | DVHPN2 ---
Progress Note Date Seen: Apr 21, 2025 Resident Creating Document: NICK ROLLINS RESIDENT Has the PT tested + for MRSA If YES, has PT been informed?: No Medical Necessity Reason Pt with a Central, PICC or Fol: No Subjective Review of Systems Mr. Barnes, a 54-year-old male with moderately controlled diabetes mellitus (on oral hypoglycemics with as needed insulin), diabetic neuropathy, hypertension ,poor medical adherence, dyslipidemia, CKD IV progressed to end-stage renal disease (ESRD) NOT yet on dialysis, previous osteomyelitis s/p left toe amputation presents to the ED following referral by his primary care provider due to abnormal laboratory results concerning for worsening kidney function. The patient reports that he was at [facility] on Friday but left prior to receiving treatment. He currently denies any associated symptoms, including pain. He denies alcohol and drug use but endorses tobacco use. He is not currently taking any medications and has no known drug allergies or prior surgical history. PCP Dr. Davis, [place] Former Machine Operator Dr. Dillon, the patient is reluctant to starting dialysis. Was accompanied by and daughter. The patient was seen in the ED on 04/17 but left prematurely against medical advice. The patient was seen and examined on the bedside. He is alert oriented x3. Complaint of nausea and generalized weakness. No other active complaint this time Objective vital signs Vital Sign Date Time Temp Pulse Resp B/P (MAP) Pulse Ox O2 Delivery O2 Flow Rate FiO2 04/21/25 09:05 168/88 04/21/25 09:04 87 04/21/25 09:00 98.7 20 100 98.7 04/21/25 08:00 Room Air* 0 21 Total Intake and Output 04/20/25 04/20/25 04/21/25 15:00 23:00 07:00 Intake Total 120 ml 900 ml 240 ml Balance 120 ml 900 ml 240 ml medications Current Medications Medications Dose Ordered Sig/Cassi Route Start Time Stop Time Status Last Admin Dose Admin Acetaminophen 650 mg Q6HP PRN PO 04/19/25 20:45 Diagnostic Test (Pha) 1 strip ACHS 04/19/25 22:00 04/21/25 06:17 1 STRIP Insulin Human Regular ACHS SC 04/19/25 22:00 Dextrose 50 ml UD PRN IV 04/19/25 20:45 Zirconium Oxide 10 gm TID PO 04/19/25 22:00 04/21/25 14:01 04/21/25 06:17 10 GM Nicotine 1 patch DAILY PRN TD 04/19/25 21:30 04/29/25 23:59 Atorvastatin Calcium 40 mg HS PO 04/19/25 22:00 04/29/25 22:00 04/20/25 22:33 40 MG Sodium Bicarbonate 650 mg TID PO 04/19/25 22:15 04/21/25 09:02 650 MG Sevelamer HCl 1,200 mg TIDWM PO 04/19/25 22:15 04/21/25 09:02 1,200 MG Gabapentin 300 mg DAILY@2200 PO 04/20/25 22:00 04/20/25 22:32 300 MG Amlodipine Besylate 5 mg DAILY PO 04/20/25 10:00 04/21/25 09:04 5 MG Furosemide 120 mg DAILY PO 04/21/25 10:00 04/21/25 09:05 120 MG Carvedilol 6.25 mg Q12HR PO 04/20/25 22:00 04/21/25 09:04 6.25 MG Hydralazine HCl 50 mg Q12HR PO 04/20/25 22:00 04/21/25 09:03 50 MG Examination Physical examination: General Appearance: Alert, Oriented X3, Cooperative, No acute distress HEENT: Atraumatic, PERRLA, EOMI, Mucous membrane moist/pink Respiratory: Clear to auscultation, Normal air movement Cardiovascular: Regular rate, Normal S1, Normal S2, No murmurs, no chest wall tenderness Abdominal: Normal bowel sounds, Soft, No tenderness, No hepatospenomegaly, No masses Extremities: S/p amputation of left 4th toe, No clubbing, No cyanosis, No edema, Normal pulses, No tenderness/swelling Skin: No rashes, No breakdown, No significant lesion Neuro: Normal gait, Normal speech, Strength at 5/5 X4 ext, Normal tone, Sensation intact, Cranial nerves 3-12 NL, Reflexes 2+ Psych/Mental Status: Mental status NL, Mood NL laboratory and microbiology Laboratory Tests 04/21/25 06:44 Test 04/21/25 06:44 Range/Units Serum Glucose 95 74-106 mg/dL Microbiology Date/Time Source Procedure Growth Status 04/20/25 04:30 Nose MRSA Screen - Final Complete Labs and/or images reviewed: Labs reviewed by me, Image(s) reviewed by me Problem List/Assessment/Plan Problem List/Assessment/Plan Assessment: # CKD stage 5 progressing to ESRD # Non compliant with medication and follow up # Hyperkalemia secondary to CKD # Metabolic acidosis # Hyperphosphatemia # Secondary hyperparathyroidism likely due to CKD # Vitamin-D deficiency # Chronic anemia likely due to CKD # Uncontrolled hypertension Plan/Recommendations: - Renal diet - Hyperkalemia protocol management - Lokelma 10 mg PO TID - Continue amlodipine 10 mg p.o. daily and started carvedilol 6.25 mg b.i.d., hydralazine 50 mg bid. - Lasix 120 mg p.o. daily - Retacrit 96459 units sc once - Strict I&O - Avoid nephrotoxic medication - Patient lost follow up with the curriculum specialist for last 1 year - Extensive discussion with the patient regarding dialysis - Patient refused dialysis now and agreed for close follow up with curriculum specialist - We will follow this patient Plan discussed with Dr. Dillon Plan discussed with: Patient, Other (RN) ADDENDUM ADDENDUM 54-year-old male with past medical history of diabetic nephropathy with stage 5 kidney disease. Patient has hyperkalemia, metabolic acidosis, anemia due to chronic kidney disease and vitamin-D deficiency. I recommended at this time that patient start hemodialysis however patient reports that his preferred modality at this time would be peritoneal dialysis. We will arrange his outpatient assuming improved compliance with patient's medical care. Recommend continue current medical therapy which includes blood pressure medications, diuretics, phosphorus binders, vitamin-D, status post Epogen inpatient. No further use of losartan for proteinuria due to hyperkalemia risk. Case discussed with primary medical team and rounding resident NICK ROLLINS Apr 21, 2025 11:39 MEERA DILLON MD Apr 21, 2025 21:20
--- NOTE | 2025-04-21 17:51 | DVHPNRES ---
Progress Note Date Seen: Apr 21, 2025 Resident Creating Document: SHERRI PECK RESIDENT Has the PT tested + for MRSA If YES, has PT been informed?: No Medical Necessity Reason Pt with a Central, PICC or Fol: No Subjective Review of Systems Mr. Barnes, a 54-year-old male with a history of diabetes mellitus (on oral hypoglycemics with as needed insulin), diabetic neuropathy, poor medical adherence, dyslipidemia, CKD V progressed to end-stage renal disease (ESRD) NOT yet on dialysis, previous osteomyelitis s/p left toe amputation presents to the ED following referral by his primary care provider due to abnormal laboratory results concerning for worsening kidney function. The patient reports that he was at [facility] on Friday but left prior to receiving treatment. He currently denies any associated symptoms, including pain. He denies alcohol and drug use but endorses tobacco use. He is not currently taking any medications and has no known drug allergies or prior surgical history. PCP Dr. Davis, Plumbing Instructor Dr. Dillon, the patient is reluctant to starting dialysis. Was accompanied by and daughter. The patient was seen in the ED on 04/17 but left prematurely. Past Medical History (questionable) HIV, moderately controlled diabetes mellitus (on oral hypoglycemics with as needed insulin), diabetic neuropathy, poor medical adherence, dyslipidemia, CKD IV progressed to end-stage renal disease (ESRD) NOT yet on dialysis, previous osteomyelitis of left foot Past Surgical History previous osteomyelitis s/p left toe amputation Family History: DM, Hyperlipidemia, Hypertension Family History non contributory to admission Smoke: # pack years (30) ALCOHOL: rare Drugs: None Lives: with Family (with and daughter ) Domestic Violence: Neg 04/20/2025: Nephrology consulted: patient will benefit on dialysis but refused to start it, patient preferred medical management and close f/u with nephologist, was explained very detailed all the risk of his decision, but he still refused to get dialysis 04/21/2025: Patient is now open to dialysis, and he opted for peritoneal dialysis, arrangements will done fu outpatient care Objective vital signs Vital Sign Date Time Temp Pulse Resp B/P (MAP) Pulse Ox O2 Delivery O2 Flow Rate FiO2 04/21/25 17:00 98.6 81 17 152/82 (105) 99 98.6 04/21/25 08:00 Room Air* 0 21 Total Intake and Output 04/20/25 04/20/25 04/21/25 15:00 23:00 07:00 Intake Total 120 ml 900 ml 240 ml Balance 120 ml 900 ml 240 ml medications Current Medications Medications Dose Ordered Sig/Cassi Route Start Time Stop Time Status Last Admin Dose Admin Acetaminophen 650 mg Q6HP PRN PO 04/19/25 20:45 Diagnostic Test (Pha) 1 strip ACHS 04/19/25 22:00 04/21/25 11:51 1 STRIP Insulin Human Regular ACHS SC 04/19/25 22:00 04/21/25 12:54 4 UNITS Dextrose 50 ml UD PRN IV 04/19/25 20:45 Nicotine 1 patch DAILY PRN TD 04/19/25 21:30 04/29/25 23:59 Atorvastatin Calcium 40 mg HS PO 04/19/25 22:00 04/29/25 22:00 04/20/25 22:33 40 MG Sodium Bicarbonate 650 mg TID PO 04/19/25 22:15 04/21/25 12:57 650 MG Sevelamer HCl 1,200 mg TIDWM PO 04/19/25 22:15 04/21/25 12:57 1,200 MG Gabapentin 300 mg DAILY@2200 PO 04/20/25 22:00 04/20/25 22:32 300 MG Amlodipine Besylate 5 mg DAILY PO 04/20/25 10:00 04/21/25 09:04 5 MG Furosemide 120 mg DAILY PO 04/21/25 10:00 04/21/25 09:05 120 MG Carvedilol 6.25 mg Q12HR PO 04/20/25 22:00 04/21/25 09:04 6.25 MG Hydralazine HCl 50 mg Q12HR PO 04/20/25 22:00 04/21/25 09:03 50 MG Examination General Appearance: Alert, Oriented X3, Cooperative, moderate distress (patient cannot stay still due to uncomfort d/t neuropathy ) HEENT: Atraumatic, PERRLA, EOMI, Mucous membr. moist/pink Respiratory: Clear to auscultation, Normal air movement, Other (basal rales ) Cardiovascular: Regular rate, Normal S1, Normal S2, No murmurs Abdominal: Normal bowel sounds, Soft, No tenderness, No hepatospenomegaly, No masses Extremities: No clubbing, No cyanosis, No edema, Normal pulses, No tenderness/swelling Skin: No rashes, No breakdown, No significant lesion Neuro: Normal gait, Normal speech, Strength at 5/5 X4 ext, Normal tone, Sensation intact Psych/Mental Status: Mental status NL, Mood NL laboratory and microbiology Laboratory Tests 04/21/25 06:44 Test 04/21/25 06:44 Range/Units Serum Glucose 95 74-106 mg/dL Microbiology Date/Time Source Procedure Growth Status 04/20/25 04:30 Nose MRSA Screen - Final Complete Problem List/Assessment/Plan Problem List/Assessment/Plan # CKD stage 5 progressing to ESRD # Non compliant with medication and follow up # Hyperkalemia secondary to CKD # Metabolic acidosis # Hyperphosphatemia # Secondary hyperparathyroidism likely due to CKD # Vitamin-D deficiency # Chronic anemia likely due to CKD # Uncontrolled hypertension #Mild enteretis # Constipation #Hypertensive heart disease with diastolic dysfunction #Dyslipidiemia s/p left toe amputation - Renal diet - Hyperkalemia protocol management - Lokelma 10 mg PO TID - Continue amlodipine 10 mg p.o. daily and started carvedilol 6.25 mg b.i.d., hydralazine 50 mg bid. - Lasix 120 mg p.o. daily - Retacrit 49602 units sc once - Gabapentin 300 mg PO - Sevalamer TID - Sodium bicarbonate TID - Strict I&O 04/21/2025: Patient is now open to dialysis, and he opted for peritoneal dialysis, arrangements will done fu outpatient care Case discussed with Dr Sandoval Plan discussed with: Patient, Other Dietary Evaluation Review Comments: 1) CCHO 60gm + Renal specific 60gm protein 2) Refer CDE on DC 3) Monitor POC glu, lab value, wt trend, I/O Expected Outcomes/Goals: To meet >75% estimated needs Fu 2-3 days SHERRI PECK RESIDENT Apr 21, 2025 17:51
[2025-04-22 01:00] VITALS: BP 142/81; PULSE 82; RESP 18; TEMP 98; O2SAT 99
[2025-04-22 05:00] VITALS: BP 156/84; PULSE 82; RESP 18; TEMP 97.8; O2SAT 98
[2025-04-22 08:00] VITALS: PULSE 75; O2SAT 100
[2025-04-22] MEDS ORDERED: CARV3.1240 PO (08:23)
[2025-04-22] MEDS ORDERED: ATOR40TA52 PO (08:23)
[2025-04-22] MEDS ORDERED: AML5T PO (08:23)
[2025-04-22] MEDS ORDERED: GABA-1250 PO (08:23)
[2025-04-22] MEDS ORDERED: FURO40TA4 PO (08:23)
[2025-04-22] MEDS ORDERED: SEVE800T7 PO (08:23)
[2025-04-22] MEDS ORDERED: HYDR25TA87 PO (08:23)
[2025-04-22] MEDS ORDERED: SODI650T PO (08:23)
[2025-04-22 09:00] VITALS: BP 158/90; PULSE 80; RESP 18; TEMP 98; O2SAT 100
[2025-04-22] MEDS: hydrALAZINE HCL 25 MG TAB PO SCH (09:51)
--- NOTE | 2025-04-22 10:52 | DVHPN2 ---
Progress Note Date Seen: Apr 22, 2025 Resident Creating Document: NICK ROLLINS RESIDENT Has the PT tested + for MRSA If YES, has PT been informed?: No Medical Necessity Reason Pt with a Central, PICC or Fol: No Subjective Review of Systems Mr. Barnes, a 54-year-old male with moderately controlled diabetes mellitus (on oral hypoglycemics with as needed insulin), diabetic neuropathy, hypertension ,poor medical adherence, dyslipidemia, CKD IV progressed to end-stage renal disease (ESRD) NOT yet on dialysis, previous osteomyelitis s/p left toe amputation presents to the ED following referral by his primary care provider due to abnormal laboratory results concerning for worsening kidney function. The patient reports that he was at [facility] on Friday but left prior to receiving treatment. He currently denies any associated symptoms, including pain. He denies alcohol and drug use but endorses tobacco use. He is not currently taking any medications and has no known drug allergies or prior surgical history. PCP Dr. Davis, Electric Car Operator Dr. Dillon, the patient is reluctant to starting dialysis. Was accompanied by and daughter. The patient was seen in the ED on 04/17 but left prematurely against medical advice. The patient was seen and examined on the bedside. He is alert oriented x3. No active complaint this time. Objective vital signs Vital Sign Date Time Temp Pulse Resp B/P (MAP) Pulse Ox O2 Delivery O2 Flow Rate FiO2 04/22/25 09:51 183/95 04/22/25 09:47 81 04/22/25 09:00 98.0 18 100 98.0 04/21/25 20:00 Room Air* 0 21 Total Intake and Output 04/21/25 04/21/25 04/22/25 15:00 23:00 07:00 Intake Total 750 ml 900 ml Balance 750 ml 900 ml medications Current Medications Medications Dose Ordered Sig/Cassi Route Start Time Stop Time Status Last Admin Dose Admin Acetaminophen 650 mg Q6HP PRN PO 04/19/25 20:45 Diagnostic Test (Pha) 1 strip ACHS 04/19/25 22:00 04/22/25 06:43 1 STRIP Insulin Human Regular ACHS SC 04/19/25 22:00 04/21/25 12:54 4 UNITS Dextrose 50 ml UD PRN IV 04/19/25 20:45 Nicotine 1 patch DAILY PRN TD 04/19/25 21:30 04/29/25 23:59 Atorvastatin Calcium 40 mg HS PO 04/19/25 22:00 04/29/25 22:00 04/21/25 21:28 40 MG Sodium Bicarbonate 650 mg TID PO 04/19/25 22:15 04/22/25 06:36 650 MG Sevelamer HCl 1,200 mg TIDWM PO 04/19/25 22:15 04/22/25 09:49 1,200 MG Gabapentin 300 mg DAILY@2200 PO 04/20/25 22:00 04/21/25 21:28 300 MG Amlodipine Besylate 5 mg DAILY PO 04/20/25 10:00 04/22/25 09:50 5 MG Furosemide 120 mg DAILY PO 04/21/25 10:00 04/22/25 09:48 120 MG Carvedilol 6.25 mg Q12HR PO 04/20/25 22:00 04/22/25 09:47 6.25 MG Hydralazine HCl 100 mg Q12HR PO 04/22/25 10:00 04/22/25 09:51 100 MG Examination Physical examination: General Appearance: Alert, Oriented X3, Cooperative, No acute distress HEENT: Atraumatic, PERRLA, EOMI, Mucous membrane moist/pink Respiratory: Clear to auscultation, Normal air movement Cardiovascular: Regular rate, Normal S1, Normal S2, No murmurs, no chest wall tenderness Abdominal: Normal bowel sounds, Soft, No tenderness, No hepatospenomegaly, No masses Extremities: S/p amputation of left 4th toe, No clubbing, No cyanosis, No edema, Normal pulses, No tenderness/swelling Skin: No rashes, No breakdown, No significant lesion Neuro: Normal gait, Normal speech, Strength at 5/5 X4 ext, Normal tone, Sensation intact, Cranial nerves 3-12 NL, Reflexes 2+ Psych/Mental Status: Mental status NL, Mood NL laboratory and microbiology Laboratory Tests 04/21/25 06:44 Test 04/21/25 06:44 Range/Units Serum Glucose 95 74-106 mg/dL Microbiology Date/Time Source Procedure Growth Status 04/20/25 04:30 Nose MRSA Screen - Final Complete Labs and/or images reviewed: Labs reviewed by me, Image(s) reviewed by me Problem List/Assessment/Plan Problem List/Assessment/Plan Assessment: # CKD stage 5 progressing to ESRD # Non compliant with medication and follow up # Hyperkalemia secondary to CKD # Metabolic acidosis # Hyperphosphatemia # Secondary hyperparathyroidism likely due to CKD # Vitamin-D deficiency # Chronic anemia likely due to CKD # Uncontrolled hypertension Plan/Recommendations: - Renal diet - Hyperkalemia protocol management - Lokelma 10 mg PO TID - Continue amlodipine 10 mg p.o. daily and started carvedilol 6.25 mg b.i.d., hydralazine 100 mg bid. - Lasix 120 mg p.o. daily - Retacrit 56431 units sc once - Strict I&O - Avoid nephrotoxic medication - Patient lost follow up with the sinter machine operator for last 1 year - Extensive discussion with the patient regarding dialysis - Patient agreed for peritoneal dialysis - Outpatient follow up with Surgery for catheter placement for PD - Outpatient Nephrology follow up for arranging PD - Patient is stable for DC from Nephrology stand point. Plan discussed with Dr. Dillon Plan discussed with: Patient, Other Dietary Evaluation Review Comments: 1) CCHO 60gm + Renal specific 60gm protein 2) Refer CDE on DC 3) Monitor POC glu, lab value, wt trend, I/O Expected Outcomes/Goals: To meet >75% estimated needs Fu 2-3 days NICK ROLLINS RESIDENT Apr 22, 2025 10:52
[2025-04-22 11:34] VITALS: BP 183/95; PULSE 81; RESP 18; TEMP 36.7; O2SAT 100
--- NOTE | 2025-04-22 13:07 | DVHDSRES ---
Discharge Summary Date of Admission Resident Creating Document: SHERRI PECK RESIDENT Apr 19, 2025 at 20:40 Date of Discharge: Apr 22, 2025 Admitting Diagnosis # CKD stage 5 progressing to ESRD Labs/Diagnostic Data: Laboratory Results Test 04/22/25 06:36 04/21/25 06:44 04/20/25 05:52 04/19/25 20:06 POC Glucose 157 mg/dl (70-106) White Blood Count 9.1 10^3/uL (4.4-10.8) Red Blood Count 3.12 10^6/uL (4.5-5.90) Hemoglobin 8.9 g/dL (13.5-17.5) Hematocrit 25.9 % (41.0-53.0) Mean Corpuscular Volume 83.0 fL (80.0-100.0) Mean Corpuscular Hemoglobin 28.6 pg (28.0-32.0) Mean Corpuscular Hemoglobin Concent 34.5 g/dL (32.0-36.0) Red Cell Distribution Width 14.3 % (11.8-14.3) Platelet Count 332 10^3/uL (140-450) Mean Platelet Volume 7.9 fL (6.9-10.8) Neutrophils (%) (Auto) 69.7 % (37.0-80.0) Lymphocytes (%) (Auto) 19.0 % (10.0-50.0) Monocytes (%) (Auto) 7.9 % (0.0-12.0) Eosinophils (%) (Auto) 2.5 % (0.0-7.0) Basophils (%) (Auto) 0.9 % (0.0-2.0) Neutrophils # (Auto) 6.4 10 ^3/uL (1.6-8.6) Lymphocytes # (Auto) 1.7 10 ^3/uL (0.4-5.4) Monocytes # (Auto) 0.7 10 ^3/uL (0-1.3) Eosinophils # (Auto) 0.2 10 ^3/uL (0-0.8) Basophils # (Auto) 0.1 10 ^3/uL (0-0.2) Nucleated Red Blood Cells 0.0 % Sodium Level 140 mmol/L (136-145) Potassium Level 4.2 mmol/L (3.5-5.1) Chloride Level 107 mmol/L (98-107) Carbon Dioxide Level 20 mmol/L (20-31) Anion Gap 13 (5-15) Blood Urea Nitrogen 66 mg/dL (9-23) Creatinine 5.63 mg/dL (0.700-1.30) Glomerular Filtration Rate Calc 11 mL/min (>90) BUN/Creatinine Ratio 11.7 (10.0-20.0) Serum Glucose 95 mg/dL (74-106) Calcium Level 8.2 mg/dL (8.7-10.4) Iron Level 111 ug/dL (65-175) Total Iron Binding Capacity 275 ug/dL (250-425) Percent Iron Saturation 40.4 % (20-55) Ferritin 291.7 ng/mL (22-322) Total Bilirubin 0.3 mg/dL (0.2-1.0) Aspartate Amino Transferase (AST) 26 U/L (13-40) Alanine Aminotransferase (ALT) 36 U/L (7-40) Alkaline Phosphatase 146 U/L (46-116) Total Protein 6.6 g/dL (5.7-8.2) Albumin 4.0 g/dL (3.2-4.8) Hepatitis B Surface Antigen Negative (Negative) Hepatitis C Antibody Negative (Negative) Phosphorus Level 7.9 mg/dL (2.4-5.1) Magnesium Level 2.5 mg/dL (1.6-2.6) B-Type Natriuretic Peptide 189.85 pg/mL (0-100) Lipase 115 U/L (12-53) Thyroid Stimulating Hormone (TSH) 0.84 uIU/mL (0.55-4.78) HIV (1&2) Antibody Negative (Negative) Other Laboratory Tests 04/21/25 06:44 Brief Hx & Hospital Course: 54-year-old male with a history of poorly controlled type 2 diabetes mellitus, hypertension, diabetic neuropathy, CKD stage IV, and s/p left toe amputation presented to the ED after follow-up labs showed worsening renal function. He was seen previously at [facility] but left AMA. On this admission, the patient was alert, oriented x3, and denied active complaints. He remained hemodynamically stable throughout the hospitalization. Labs were reviewed and showed progression of kidney disease with associated electrolyte abnormalities and metabolic derangements. The nephrology team was consulted. After extensive discussion, the patient agreed to pursue peritoneal dialysis and was referred for PD catheter placement. Medications were adjusted to address hyperkalemia (Lokelma 10 mg PO TID), hypertension (Amlodipine, Carvedilol, Hydralazine), and diuresis (Lasix 120 mg PO daily). He was educated on medication adherence and avoidance of nephrotoxic agents. Dietary recommendations were provided and CDE referral was placed. Patient remained clinically stable, tolerating oral intake, and was discharged in stable condition with close outpatient nephrology and surgery follow-up to arrange PD catheter placement. Discharge Medications: Lokelma 10 mg PO TID Amlodipine 10 mg PO daily Carvedilol 6.25 mg PO BID Hydralazine 100 mg PO BID Lasix 120 mg PO daily Atorvastatin 40 mg PO Calcium carbonate 650 mg PO TID Follow-Up: Nephrology outpatient in 23 days Surgery for PD catheter evaluation Continue diet with renal-specific protein restrictions Monitor labs and blood pressure Condition on Discharge: Stable Case discussed with Dr Sandoval Consults/Reason for consult nephrology due to CKD Operations or Procedures Exam: CT CT AB PEL WO CON-NO ORAL OR IV History: rule out intraabdominal pathology pancreatitis Comparison Study: None Technique: Multidetector spiral CT of the abdomen was performed from lung bases to pubic symphysis. Imaging was performed without IV contrast. Axial, coronal and sagittal multiplanar reformats were obtained from the axial data set by the technologist. Radiation Dose : 1. Abdomen/Pelvis: CTDIvol 6.67 mGy, DLP 389.33 mGy*cm. Findings: Evaluation of solid organs is limited due to lack of intravenous contrast use. Lung Bases: No acute or significant lung base finding. Normal heart size. No pleural or pericardial effusion. Liver: The liver is normal in size. No focal lesions. Gallbladder and Biliary Tree: Cholelithiasis noted without secondary findings of cholecystitis or biliary obstruction. Spleen: Unremarkable Pancreas: The pancreas is grossly normal in appearance. Adrenal Glands: Unremarkable Kidneys: Kidneys are grossly normal without calculi or hydronephrosis. Bladder: Grossly unremarkable for degree of distention. Bowel: The stomach is grossly normal in appearance. Minimal wall thickening in a few loops of small bowel in the left hemiabdomen may reflect mild enteritis. The appendix is not visualized; however, no secondary findings of acute appendicitis identified. Moderate to large colonic stool burden Ascites: Absent Lymphadenopathy: No mesenteric, retroperitoneal or periportal lymphadenopathy. Abdominal Wall and Mesentery: Unremarkable. Vasculature: The visualized abdominal aorta is normal in size and caliber. Evaluation of abdominal and pelvic vessels is limited due to lack of intravenous contrast. Pelvic Organs: Unremarkable Musculoskeletal: No aggressive focal bony lesions, acute fractures or dislocation. IMPRESSION: 1. Minimal wall thickening in a few loops of small bowel in the left hemiabdomen may reflect mild enteritis. 2. Moderate to large colonic stool burden. Condition at Discharge: Stable Final Diagnosis/Problems List # CKD stage 5 progressing to ESRD # Non compliant with medication and follow up # Hyperkalemia secondary to CKD # Metabolic acidosis # Hyperphosphatemia # Secondary hyperparathyroidism likely due to CKD # Vitamin-D deficiency # Chronic anemia likely due to CKD # Uncontrolled hypertension #Mild enteretis # Constipation #Hypertensive heart disease with diastolic dysfunction #Dyslipidiemia s/p left toe amputation Discharge Disposition: Home Discharge Instruct/Medications Diet: Renal Activity: No Restrictions, As Tolerated Follow Up/Referral: please fu with Dr Dillon for peritoneal dyalisis arrangement Medications: see prescription Discharge Statement: "Patient was advised to return to the ER or call 911 if any headaches, dizziness, shortness of breath, chest pain, abdominal pain, bleeding, fevers, or worsening of medical condition. Patient was counseled about treatment plan, medications, possible side effects, patientverbalized understanding. All questions were answered to the best of my ability. This discharge took greater then 30 minutes in planning, reviewing documentation, counseling the patient, and discussing with other team members." ASSESSMENT ASSESSMENT Assessment ESRD SHERRI PECK RESIDENT Apr 22, 2025 13:07
== END 2025-04-22 13:09 | disposition home or self-care (01) | DRG 425 ==
LOC: ER 19:10 → OVERFLOW 20:40 → TELE-WESTW 04-20 03:34
PROVIDERS: ADMIT Internal Medicine Geriatric Medicine; ATTEND Internal Medicine Geriatric Medicine
DX: E87.5 Hyperkalemia (principal); E87.20 Acidosis, unspecified; I12.0 Hypertensive chronic kidney disease with stage 5 chronic kidney disease or end stage renal disease; D63.1 Anemia in chronic kidney disease; N18.6 End stage renal disease; E11.40 Type 2 diabetes mellitus with diabetic neuropathy, unspecified; E11.22 Type 2 diabetes mellitus with diabetic chronic kidney disease; N25.81 Secondary hyperparathyroidism of renal origin; I50.32 Chronic diastolic (congestive) heart failure; E78.5 Hyperlipidemia, unspecified; E55.9 Vitamin D deficiency, unspecified; F17.210 Nicotine dependence, cigarettes, uncomplicated; E87.70 Fluid overload, unspecified; K59.00 Constipation, unspecified; Z79.899 Other long term (current) drug therapy; Z99.2 Dependence on renal dialysis; Z83.3 Family history of diabetes mellitus; Z91.148 Patient's other noncompliance with medication regimen for other reason; Z82.49 Family history of ischemic heart disease and other diseases of the circulatory system; Z79.84 Long term (current) use of oral hypoglycemic drugs; Z89.422 Acquired absence of other left toe(s)
CPT/HCPCS: 36415; 74176; 80048; 80053; 82728; 82962; 83540; 83550; 83690; 83735; 83880; 84100; 84132; 84443; 85025; 86703; 86803; 87081; 87340; 93306; 96365; 96375; G0378; J1815

== ENCOUNTER 2025-05-09 11:16 | Inpatient (IN) | payer MEDICAID ==
[~2025-05-09] VITALS: Ht 167.6 cm; Wt 82.1 kg
[~2025-05-09 11:16] MED LIST changes: +AML5T PO; +CALC667C PO; +CARV3.1240 PO; -FENO145T27 PO; +FURO40TA4 PO; +FURO80TA3 PO; +GABA-1250 PO; +HYDR25TA87 PO; +SEVE800T7 PO
--- NOTE | 2025-05-09 12:23 | ED.PDOC ---
History of Present Illness HPI Comments 54-year-old male presents to the ER with prior medical history of HIV, diabetes, ESRD in the chief complaint of LE. Patient reports on having bilateral lower extremity swelling for the past two weeks and was referred by his PCP which is to go to the ER to get a catheter placed for for peritoneal dialysis placed. Denies chills, fever, N/V/D, SOB, CP. No other associated symptoms, modifiers, recent injuries or sick contacts present at this time. Chief Complaint: Lower Extremity Time Seen by MD: 12:10 Primary Care Provider: ABHISHEK Reviewed Notes: Nurses Notes, Medications, Allergies Allergies: Coded Allergies: No Known Drug Allergy (Verified Allergy, Unknown, 10/27/24) Home Meds Active Scripts Sodium Bicarbonate (Sodium Bicarbonate) 650 Mg Tab, 650 MG PO TID for 30 Days, #90 TAB Prov:SHERRI PECK [facility] 04/22/25 Sevelamer Hydrochloride (Renagel) 800 Mg Tab, 800 MG PO TIDWM for 30 Days, #90 TAB Prov:SHERRI PECK [facility] 04/22/25 Hydralazine HCl (Hydralazine HCl) 25 Mg Tab, 100 MG PO Q12HR for 30 Days, #240 TAB [facility]25 Gabapentin (Gabapentin) 300 Mg Cap, 300 MG PO DAILY@2200 for 30 Days, #30 CAP [facility] 04/22/25 Furosemide (Furosemide) 40 Mg Tab, 120 MG PO DAILY for 30 Days, #90 TAB Prov:SHERRI PECK [facility] 04/22/25 Carvedilol (Carvedilol) 3.125 Mg Tab, 2 TAB PO BID, #180 TAB 3 Refills Prov:SHERRI PECK [facility] 04/22/25 Atorvastatin Calcium (ATORVASTATIN CALCIUM) 40 Mg Tab, 40 MG PO DAILY for 30 Days, #30 TAB Prov:SHERRI PECK [facility] 04/22/25 Amlodipine Besylate (NORVASC TABLET) 5 Mg Tb, 5 MG PO DAILY for 30 Days, #30 TAB Prov:SHERRI PECK [facility] 04/22/25 Sodium Zirconium Cyclosilicate (Lokelma) 5 Gm John, 10 GM PO TID for 30 Days, #90 PACK 3 Refills Prov:EVER RIVERA DO 07/24/24 Sodium Bicarbonate (Sodium Bicarbonate) 650 Mg Tab, 1300 MG PO TID for 30 Days, #180 TAB 3 Refills Prov:EVER RIVERA T DO 07/24/24 Glipizide (Glipizide) 10 Mg Tab, 1 TAB PO BID, #180 TAB 3 Refills Prov:ANNA MARIE MENDOZA MD 10/15/22 Reported Medications Calcium Acetate (Phosphate Bin (Calcium Acetate) 667 Mg Cap, 667 MG PO TIDWM, CAP WITH MEALS 04/20/25 Furosemide (Furosemide) 80 Mg Tab, 1 TAB PO DAILY, #30 TAB 5 Refills 04/20/25 Gabapentin (Gabapentin) 100 Mg Cap, 1 CAP PO BID for 30 Days, #60 04/20/25 Losartan Potassium (Losartan Potassium) 50 Mg Tab, 1 TAB PO DAILY 07/21/24 Pioglitazone Hydrochloride (PIOGLITAZONE HCL) 30 Mg Tab, 1 TAB PO DAILY 07/21/24 Empagliflozin (Jardiance) 25 Mg Tab, 1 TAB PO DAILY 09/25/23 Hctz (Hydrochlorothiazide) 25 Mg Tab, 1 TAB PO DAILY 09/25/23 Amlodipine Besylate (Amlodipine Besylate) 10 Mg Tab, 1 TAB PO DAILY 09/25/23 Information Source: Patient Mode of Arrival: Ambulatory Severity: Moderate Timing: Weeks Duration: Since onset Prehospital treatment: None Past Medical History PAST MEDICAL HISTORY: DM, ESRD (On dialysis), HIV Surgical History: Denies all surgeries Family History Family History: Reviewed,noncontributory to illness, Unknown Social History Smoker: Cigarettes Alcohol: Denies ETOH Use Drugs: Denies Drug Use Lives In: Home Constitutional: denies: chills, diaphoresis, fatigue, fever, malaise, sweats, weakness, others EENTM: denies: blurred vision, double vision, ear bleeding, ear discharge, ear drainage, ear pain, ear ringing, eye pain, eye redness, hearing loss, mouth pain, mouth swelling, nasal discharge, nose bleeding, nose congestion, nose pain, photophobia, tearing, throat pain, throat swelling, voice changes, others Respiratory: denies: cough, hemoptysis, orthopnea, SOB at rest, shortness of breath, SOB with excertion, stridor, wheezing, others Cardiovascular: reports: edema (Bilateral); denies: chest pain, dizzy spells, diaphoresis, Dyspnea on exertion, irregular heart beat, left arm pain, lightheadedness, palpitations, PND, syncope, others Gastrointestinal: denies: abdomen distended, abdominal pain, blood streaked bowels, constipated, diarrhea, dysphagia, difficulty swallowing, hematemesis, melena, nausea, poor appetite, poor fluid intake, rectal bleeding, rectal pain, vomiting, others Genitourinary: denies: burning, dysuria, flank pain, frequency, hematuria, incontinence, penile discharge, penile sore, pain, testicle pain, testicle swelling, urgency, others Neurological: denies: dizziness, fainting, headache, left sided numbness, left sided weakness, numbness, paresthesia, pre-existing deficit, right sided numbness, right sided weakness, seizure, speech problems, tingling, tremors, weakness, others Musculoskeletal: denies: back pain, gout, joint pain, joint swelling, muscle pain, muscle stiffness, neck pain, others Integumetry: denies: bruises, change in color, change in hair/nails, dryness, laceration, lesions, lumps, rash, wounds, others Allergic/Immunocompromised: denies: Difficulty Healing, Frequent Infections, Hives, Itching, others Hematologic/Lymphatic: denies: anemia, blood clots, easy bleeding, easy bruising, swollen glands, others Endocrine: denies: excessive hunger, excessive sweating, excessive thirst, excessive urination, flushing, intolerance to cold, intolerance to heat, unexplained weight gain, unexplained weight loss, others Psychiatric: denies: anxiety, bipolar disorder, depression, hopeless, panic disorder, schizophrenia, sleepless, suicidal, others All Other Systems: Reviewed and Negative Physical Exam General Appearance: Moderate Distress, Normal HEENT: Normal ENT Inspection, Pharynx Normal, TMs Normal Neck: Full Range of Motion, Non-Tender, Normal, Normal Inspection Respiratory: Chest Non-Tender, Lungs Clear, No Accessory Muscle Use, No Respiratory Distress, Normal Breath Sounds Cardiovascular: No Edema, No JVD, No Murmur, No Gallop, Normal Peripheral Pulses, Regular Rate/Rhythm Breast Exam: Deferred Gastrointestinal: No Organomegaly, Non Tender, No Pulsatile Mass, Normal Bowel Sounds, Soft Genitalia: Deferred Pelvic: Deferred Rectal: Deferred Extremities: No calf tenderness, Normal capillary refill, Normal inspection, Normal range of motion, Non-tender, No pedal edema Musculoskeletal : Apperance: Normal Neurologic: Alert, property coordinator II-XII nml as Tested, No Motor Deficits, Normal Affect, Normal Mood, No Sensory Deficits Cerebellar Function: Normal Reflexes: Normal Skin: Dry, Normal Color, Warm Peripheral Pulses: 3+ Radial (R), 3+ Radial (L) Lymphatic: No Adenopathy Was a procedure done? Was a procedure done?: No Differential Dx Considerations may include: Chronic kidney disease X-Ray, Labs, Meds, VS Vital Signs Date Time Temp Pulse Resp B/P (MAP) Pulse Ox O2 Delivery O2 Flow Rate FiO2 05/09/25 12:10 85 16 99 Room Air 05/09/25 12:10 97.7 85 16 144/71 (95) 99 97.7 05/09/25 11:25 98.0 83 16 143/70 (94) 99 98.0 Patient alert. Vitals stable. Waiting for dialysis catheter. Answering all questions. No sign of distress. Mild swelling of bilateral lower extremity. No sign of any acute process. Explained to the patient. Continue monitoring. Time of 1ST Reevaluation: 12:40 Reevaluation 1ST: Unchanged Patient Education/Counseling: Diagnosis, Treatment, Prognosis Family Education/Counseling: No Family Present SEPSIS Sepsis Screen Date sepsis recognized/suspect: May 09, 2025 Time Sepsis recognized/suspect: 1124 Recent Procedure: No On Antibiotic Therapy: No Respiratory Rate >20: No Heart Rate >90: No Temp<36 C (96.8 F) or >38.3 C: No SBP <90 or MAP <65 mmHG: No New Acute Mental Status Change: No Is the patient on CPAP, BIPAP,: No Physician Orders Complete Blood Count (05/09/25 12:47) PTPTT (05/09/25 12:47) Basic Metabolic Panel (05/09/25 12:47) Vital Signs Date Time Temp Pulse Resp B/P (MAP) Pulse Ox O2 Delivery O2 Flow Rate FiO2 05/09/25 12:10 85 16 99 Room Air 05/09/25 12:10 97.7 85 16 144/71 (95) 99 97.7 05/09/25 11:25 98.0 83 16 143/70 (94) 99 98.0 Departure 1 Departure Time of Disposition: 13:17 Impression: Primary Impression: Chronic kidney disease Qualified Codes: N18.9 - Chronic kidney disease, unspecified Disposition: 09 ADMITTED INPATIENT Admit to: Med Surg Condition: Guarded Critical Care Note Critical Care Time?: No Stability Stability form required: No Heart Score Heart Score: Heart Score Response (Comments) Value History N/A 0 EKG N/A 0 Age N/A 0 Risk Factors N/A 0 Troponin N/A 0 Total 0 I personally scribed for MAUREEN REYES MD ([email or web address]) on 05/09/25 at 12:23. Electronically submitted by Javier De La Vega ([email or web address]). MAUREEN REYES MD May 09, 2025 12:23
[2025-05-09 13:34] LABS: Hemoglobin 8.3 g/dL (13.5-17.5); Mean Corpuscular Volume 82.9 fL (80.0-100.0); Nucleated Red Blood Cells % 0.0 %
[2025-05-09 13:35] LABS: Chloride 104 mmol/L (98-107); Hematocrit 24.4 % (41.0-53.0); Mean Corpuscular Hemoglobin 28.2 pg (28.0-32.0); Potassium 5.1 mmol/L (3.5-5.1); Sodium 139 mmol/L (136-145)
[2025-05-09 13:36] LABS: Anion Gap 15 (5-15); Calcium 9.0 mg/dL (8.7-10.4); Carbon Dioxide 20 mmol/L (20-31)
[2025-05-09 13:41] LABS: BUN/Creatinine Ratio 16.4 (10.0-20.0)
[2025-05-09 13:43] LABS: Glucose 198 mg/dL (74-106); INR 0.98 (0.9-1.15); Partial Thromboplastin Time 29.9 SEC (24.5-34.5); Prothrombin Time 10.4 sec (9.3-11.8)
[2025-05-09 13:46] LABS: Blood Urea Nitrogen 123 mg/dL (9-23)
[2025-05-09] MEDS ORDERED: DOCUSATE SOD 100 MG CAP PO PRN (17:15)
[2025-05-09] MEDS ORDERED: ONDANSETRON HCL 4 MG/2 ML VIAL IV PRN (17:15)
[2025-05-09] MEDS ORDERED: MORPHINE SULFATE INJ 2 MG/ml SYRG IV PRN (17:15)
[2025-05-09] MEDS ORDERED: HYDROcodone-ACET 5/325MG TAB PO PRN (17:15)
[2025-05-09] MEDS ORDERED: NITROGLYCERIN 0.4 MG SL TAB SL PRN (17:15)
[2025-05-09] MEDS ORDERED: DEXTROSE (50%) 50ML SYRG IV PRN (17:15)
--- NOTE | 2025-05-09 17:16 | DVHHP2 ---
History of Present Illness Reason for Visit: Acute renal failure History of Present Illness The patient is a 54-year-old male with past medical history DM, end-stage renal disease is pending initial hemodialysis, and HIV who presented to [facility] ED with complaint of bilateral lower extremity swelling. Patient r eports he has been experiencing lower extremity swelling for the past 2 weeks and was referred by his PCP Dr. Davis to come to the ER for possible peritoneal dialysis catheter placement. Patient was seen and evaluated in the ED, laboratory data shows WBC 9.4, hemoglobin 8.3, hematocrit 24.4, platelets 416, sodium 139, potassium 5.1, BUN 123, creatinine 7.52, glucose 198, calcium 9.0, blood pressure 144/71, heart rate 85, temperature 97.7 F, O2 saturation 99% on room air. Please see medication orders section in the computer. On my assessment, patient denies chest pain, no headache, no dizziness, no diaphoresis, no shortness of breath, no nausea, no vomiting, no fever, no chills. Patient was admitted for further evaluation and medical management. Past Medical History DM, ESRD (not on dialysis), HIV Past Surgical History Denies all surgeries Family History Reviewed, noncontributory to the management of this case. Past Social History The patient lives at home, smokes cigarettes, denies alcohol or illicit drugs abuse. Review of Systems Constitutional: Yes: Weakness; No: Fever, Chills, Sweats, Malaise, Other Eyes: No: Pain, Vision change, Conjunctivae inflammation, Eyelid inflammation, Other, Redness ENT: No: Ear pain, Ear discharge, Nose pain, Nose discharge, Nose congestion, Mouth pain, Mouth swelling, Throat pain, Throat swelling, Other Respiratory: No: Cough, Dry, Shortness of breath, SOB with excertion, Wheezing, Hemoptysis, Pleuritic Pain, Sputum, Wheezing, Other Cardiovascular: Edema; No: Chest Pain, Palpitations, Orthopnea, Paroxysmal Noc. Dyspnea, Lt Headedness, Other Gastrointestinal: No: Nausea, Vomiting, Abdominal Pain, Diarrhea, Constipation, Melena, Hematochezia, Other Genitourinary: No Dysuria, No Frequency, No Incontinence, No Hematuria, No Retention, No Other Musculoskeletal: other (Bilateral lower extremity swelling); No: neck pain, shoulder pain, arm pain, back pain, hand pain, leg pain, foot pain Skin: No: Rash, Lesions, Jaundice, Bruising, Other Neurological: No: Weakness, Numbness, Incoordination, Change in speech, C onfusion, Seizures, Other Allergies: Coded Allergies: No Known Drug Allergy (Verified Allergy, Unknown, 10/27/24) Exam Vital Signs Vital Signs Date Time Temp Pulse Resp B/P (MAP) Pulse Ox O2 Delivery O2 Flow Rate FiO2 05/09/25 17:04 97.7 76 20 151/79 (103) 98 97.7 05/09/25 12:10 Room Air General Appearance: Alert, Oriented X3, Cooperative, No acute distress HEENT: Atraumatic, PERRLA, EOMI, Mucous membr. moist/pink Respiratory: Clear to auscultation, Normal air movement Cardiovascular: Regular rate, Normal S1, Normal S2, No murmurs Abdominal: Normal bowel sounds, Soft, No tenderness, No hepatospenomegaly, No masses Extremities: No clubbing, No cyanosis, No edema, Normal pulses, Other (Bilateral lower extremity tenderness/swelling) Skin: No rashes, No breakdown, No significant lesion Neuro: Normal speech, Normal tone, Sensation intact, Cranial nerves 3-12 NL, Reflexes 2+ Psych/Mental Status: Mental status NL, Mood NL Labs/Xrays Labs Test 05/09/25 13:04 Range/Units White Blood Count 9.4 4.4-10.8 10^3/uL Red Blood Count 2.94 L 4.5-5.90 10^6/uL Hemoglobin 8.3 L 13.5-17.5 g/dL Hematocrit 24.4 L 41.0-53.0 % Mean Corpuscular Volume 82.9 80.0-100.0 fL Mean Corpuscular Hemoglobin 28.2 28.0-32.0 pg Mean Corpuscular Hemoglobin Concent 34.0 32.0-36.0 g/dL Red Cell Distribution Width 14.7 H 11.8-14.3 % Platelet Count 416 140-450 10^3/uL Mean Platelet Volume 8.3 6.9-10.8 fL Neutrophils (%) (Auto) 74.1 37.0-80.0 % Lymphocytes (%) (Auto) 14.5 10.0-50.0 % Monocytes (%) (Auto) 7.3 0.0-12.0 % Eosinophils (%) (Auto) 2.9 0.0-7.0 % Basophils (%) (Auto) 1.2 0.0-2.0 % Neutrophils # (Auto) 6.9 1.6-8.6 10 ^3/uL Lymphocytes # (Auto) 1.4 0.4-5.4 10 ^3/uL Monocytes # (Auto) 0.7 0-1.3 10 ^3/uL Eosinophils # (Auto) 0.3 0-0.8 10 ^3/uL Basophils # (Auto) 0.1 0-0.2 10 ^3/uL Nucleated Red Blood Cells 0.0 % Prothrombin Time 10.4 9.3-11.8 sec Prothrombin Time INR 0.98 0.9-1.15 Activated Partial Thromboplast Time 29.9 24.5-34.5 SEC Sodium Level 139 136-145 mmol/L Potassium Level 5.1 3.5-5.1 mmol/L Chloride Level 104 98-107 mmol/L Carbon Dioxide Level 20 20-31 mmol/L Anion Gap 15 5-15 Blood Urea Nitrogen 123 *H 9-23 mg/dL Creatinine 7.52 H 0.700-1.30 mg/dL Glomerular Filtration Rate Calc 8 >90 mL/min BUN/Creatinine Ratio 16.4 10.0-20.0 Serum Glucose 198 H 74-106 mg/dL Calcium Level 9.0 8.7-10.4 mg/dL Assessment/Plan Assessment/Plan Acute renal failure Generalized weakness Anemia of chronic disease Diabetes mellitus with hyperglycemia Plan 1. Admit to telemetry units 2. Breathing treatment 3. Pain control management 4. Management of fluids and electrolytes 5. Consultation for Nephrology 6. Diagnostic tests chest x-ray 7. DVT prophylaxis-ambulatory 8. Repeat labs CBC, CMP in a.m. 9. Continue with current medical management 10. Treatment plan discussed with patient and RN. Patient verbalized understanding. Plan discussed with: Patient, Other (RN) Problem List: (1) Acute renal failure (2) Generalized weakness (3) Anemia of chronic disease (4) Diabetes mellitus with hyperglycemia Date of Service: May 09, 2025 Billing Provider: ALPA BOSS DNP Common Visit Codes: 32290-TPMZIQR INP/OBS CARE (HIGH) ALPA BOSS DNP May 09, 2025 17:16
[2025-05-09] MEDS: SEVELAMER 800 MG TAB PO SCH (18:17)
[2025-05-09] MEDS: InsuLIN REG 1unit/0.01ml Soln (100units/ml) SC SCH (20:00)
[2025-05-09] MEDS: ACCU-CHEK COMFORT CURVE STRIP VI SCH (20:00)
[2025-05-09] MEDS: SODIUM CHLOR 0.9% PF (SALINE LOCK) 10ML VIAL/SYR IV SCH (20:36)
[2025-05-10] VITALS (7 sets, daily range): BP systolic 142–164; BP diastolic 70–92; PULSE 83–93; RESP 17–20; TEMP 97.6–98.3; O2SAT 96–98
[2025-05-10 05:50] LABS: Hematocrit 23.7 % (41.0-53.0); Hemoglobin 7.9 g/dL (13.5-17.5); Mean Corpuscular Hemoglobin 27.6 pg (28.0-32.0); Mean Corpuscular Volume 83.1 fL (80.0-100.0); Nucleated Red Blood Cells % 0.0 %
[2025-05-10 06:35] LABS: Alanine Aminotransferase 34 U/L (7-40); Albumin 3.9 g/dL (3.2-4.8); Anion Gap 15 (5-15); BUN/Creatinine Ratio 16.1 (10.0-20.0); Chloride 104 mmol/L (98-107); Potassium 5.0 mmol/L (3.5-5.1); Sodium 139 mmol/L (136-145); Total Protein 6.6 g/dL (5.7-8.2)
[2025-05-10 07:13] LABS: Alkaline Phosphatase 252 U/L (46-116); Bilirubin, Total 0.2 mg/dL (0.2-1.0); Blood Urea Nitrogen 119 mg/dL (9-23); Calcium 8.4 mg/dL (8.7-10.4); Carbon Dioxide 20 mmol/L (20-31); Glucose 200 mg/dL (74-106)
[2025-05-10] MEDS: BUMETANIDE 2.5mg/10ml (0.25 mg/ml) INJ IV SCH (09:10)
[2025-05-10] MEDS: B-COMPLEX W/ C & FOLIC ACID(NEPHROVITE TAB) PO SCH (09:10)
[2025-05-10 10:16] LABS: Iron 61.0 ug/dL (65-175)
[2025-05-10 10:19] LABS: Total Iron Binding Capacity 272.0 ug/dL (250-425)
--- NOTE | 2025-05-10 11:58 | DVHINCON2 ---
Date of service: May 10, [address] Davis Reason for Consultation CKD 5 History of Present Illness 54-year-old male with past medical history of hypertension, diabetes, with diabetic nephropathy and advanced kidney disease stage 5 patient recently hospitalized for fluid overload. Was discharged on that admission with a plan to follow up in renal clinic and transitioned to peritoneal dialysis. Patient went to his primary medical doctor for routine follow-up post hospitalization was found to be significantly swollen with bilateral pitting edema despite Lasix 120 mg daily. Patient was admitted for this reason. Patient tentatively agreed to plan for peritoneal dialysis catheter placement to start to dialysis Past Medical History As above Allergies: Coded Allergies: No Known Drug Allergy (Verified Allergy, Unknown, 10/27/24) Home Meds Active Scripts Sevelamer Hydrochloride (Renagel) 800 Mg Tab, 800 MG PO TIDWM for 30 Days, #90 TAB Prov:SHERRI PECK [facility] 04/22/25 Hydralazine HCl (Hydralazine HCl) 25 Mg Tab, 100 MG PO Q12HR for 30 Days, #240 TAB Prov:SHERRI PECK [facility] 04/22/25 Gabapentin (Gabapentin) 300 Mg Cap, 300 MG PO DAILY@2200 for 30 Days, #30 CAP [facility]25 Furosemide (Furosemide) 40 Mg Tab, 120 MG PO DAILY for 30 Days, #90 TAB [facility] 04/22/25 Carvedilol (Carvedilol) 3.125 Mg Tab, 2 TAB PO BID, #180 TAB 3 Refills Prov:SHERRI PECK [facility] 04/22/25 Atorvastatin Calcium (ATORVASTATIN CALCIUM) 40 Mg Tab, 40 MG PO DAILY for 30 Days, #30 TAB Prov:SHERRI PECK [facility] 04/22/25 Amlodipine Besylate (NORVASC TABLET) 5 Mg Tb, 5 MG PO DAILY for 30 Days, #30 TAB Prov:SHERRI PECK [facility] 04/22/25 Sodium Zirconium Cyclosilicate (Lokelma) 5 Gm John, 10 GM PO TID for 30 Days, #90 PACK 3 Refills Prov:EVER RIVERA DO 07/24/24 Sodium Bicarbonate (Sodium Bicarbonate) 650 Mg Tab, 1300 MG PO TID for 30 Days, #180 TAB 3 Refills Prov:EVER RIVERA DO 07/24/24 Glipizide (Glipizide) 10 Mg Tab, 1 TAB PO BID, #180 TAB 3 Refills Prov:ANNA MARIE MENDOZA MD 10/15/22 Reported Medications Furosemide (Furosemide) 80 Mg Tab, 1 TAB PO DAILY, #30 TAB 5 Refills 04/20/25 Losartan Potassium (Losartan Potassium) 50 Mg Tab, 1 TAB PO DAILY 07/21/24 Pioglitazone Hydrochloride (PIOGLITAZONE HCL) 30 Mg Tab, 1 TAB PO DAILY 07/21/24 Empagliflozin (Jardiance) 25 Mg Tab, 1 TAB PO DAILY 09/25/23 Hctz (Hydrochlorothiazide) 25 Mg Tab, 1 TAB PO DAILY 09/25/23 Amlodipine Besylate (Amlodipine Besylate) 10 Mg Tab, 1 TAB PO DAILY 09/25/23 Current Medications Current Medications Medications (Trade) Dose Ordered Sig/Cassi Route PRN Reason Start Time Stop Time Status Last Admin Sevelamer HCl (Renagel) 800 mg TIDWM PO 05/09/25 18:00 05/10/25 09:11 Multivit/Ca Carb/ B Cmplx/FA/Prenat (Nephro-Grecia Tablet) 1 tab DAILY PO 05/10/25 10:00 05/10/25 09:10 Hydralazine HCl (Apresoline Injection) 10 mg Q6HP PRN IV SBP>150 05/09/25 17:15 Amlodipine Besylate (Norvasc Tablet) 10 mg DAILY PO 05/10/25 10:00 05/10/25 09:11 Diagnostic Test (Pha) (Accu-Chek Comfort Curve T) 1 strip IQ4HR 05/09/25 20:00 05/10/25 08:00 Insulin Human Regular (InsuLIN R) IQ4HR SC 05/09/25 20:00 Dextrose 50 ml UD PRN IV Blood Sugar LESS THAN 60 05/09/25 17:15 Sodium Chloride (Saline Lock Ns) 10 ml Q8HR IV 05/09/25 22:00 Acetaminophen/ Hydrocodone Bitart (Chandler 5/325MG Tab) 1 tab Q4HP PRN PO MODERATE PAIN (4-6 PAIN SCALE) 05/09/25 17:15 Ondansetron HCl (Zofran) 4 mg Q4HP PRN IV NAUSEA / VOMITING 05/09/25 17:15 Docusate Sodium (Colace Capsule) 100 mg BIDPRN PRN PO FOR CONSTIPATION 05/09/25 17:15 Acetaminophen (Tylenol Tablet) 650 mg Q6HP PRN PO PAIN SCALE 1-3 OR TEMP>100.4 05/09/25 17:15 Nitroglycerin (Ntrostat Sublingual) 0.4 mg Q5MINP PRN SL FOR CHEST PAIN 05/09/25 17:15 Morphine Sulfate 2 mg Q30M PRN IV FOR CHEST PAIN 05/09/25 17:15 Bumetanide (Bumex Injection) 2.5 mg BIDD IV 05/10/25 09:00 05/10/25 09:10 Epoetin Marcelo-epbx (Retacrit) 10,000 unit TUTHSA SC 05/10/25 10:00 Family History: Diabetes mellitus G8 MOTHER Review of Systems Bilateral leg swelling H&P Exam Vital Signs/I&O Vital Sign Date Time Temp Pulse Resp B/P (MAP) Pulse Ox O2 Delivery O2 Flow Rate FiO2 05/10/25 09:11 134/70 05/10/25 09:00 98.3 88 17 96 98.3 05/10/25 08:10 Room Air* 0 21 Intake and Output 05/09/25 05/10/25 19:00 07:00 Intake Total 0 ml Balance 0 ml Intake Oral 0 ml # Voids 1 Physical Exam Middle-aged male Nonacute distress Abdomen is soft Bilateral 2+ ankle edema No murmur Labs/Diagnostic Data Labs/Diagnostic Data Laboratory Tests Test 05/10/25 11:21 05/10/25 08:02 05/10/25 05:34 05/10/25 04:45 Range/Units POC Glucose 173 H 175 H 178 H 70-106 mg/dl White Blood Count 8.9 4.4-10.8 10^3/uL Red Blood Count 2.85 L 4.5-5.90 10^6/uL Hemoglobin 7.9 L 13.5-17.5 g/dL Hematocrit 23.7 L 41.0-53.0 % Mean Corpuscular Volume 83.1 80.0-100.0 fL Mean Corpuscular Hemoglobin 27.6 L 28.0-32.0 pg Mean Corpuscular Hemoglobin Concent 33.3 32.0-36.0 g/dL Red Cell Distribution Width 14.6 H 11.8-14.3 % Platelet Count 369 140-450 10^3/uL Mean Platelet Volume 8.0 6.9-10.8 fL Neutrophils (%) (Auto) 69.3 37.0-80.0 % Lymphocytes (%) (Auto) 18.1 10.0-50.0 % Monocytes (%) (Auto) 8.2 0.0-12.0 % Eosinophils (%) (Auto) 3.1 0.0-7.0 % Basophils (%) (Auto) 1.3 0.0-2.0 % Neutrophils # (Auto) 6.2 1.6-8.6 10 ^3/uL Lymphocytes # (Auto) 1.6 0.4-5.4 10 ^3/uL Monocytes # (Auto) 0.7 0-1.3 10 ^3/uL Eosinophils # (Auto) 0.3 0-0.8 10 ^3/uL Basophils # (Auto) 0.1 0-0.2 10 ^3/uL Nucleated Red Blood Cells 0.0 % Sodium Level 139 136-145 mmol/L Potassium Level 5.0 3.5-5.1 mmol/L Chloride Level 104 98-107 mmol/L Carbon Dioxide Level 20 20-31 mmol/L Anion Gap 15 5-15 Blood Urea Nitrogen 119 *H 9-23 mg/dL Creatinine 7.41 H 0.700-1.30 mg/dL Glomerular Filtration Rate Calc 8 >90 mL/min BUN/Creatinine Ratio 16.1 10.0-20.0 Serum Glucose 200 H 74-106 mg/dL Calcium Level 8.4 L 8.7-10.4 mg/dL Phosphorus Level 9.3 H 2.4-5.1 mg/dL Iron Level 61 L 65-175 ug/dL Total Iron Binding Capacity 272 250-425 ug/dL Percent Iron Saturation 22.4 20-55 % Ferritin 215.9 22-322 ng/mL Total Bilirubin 0.2 0.2-1.0 mg/dL Aspartate Amino Transferase (AST) 25 13-40 U/L Alanine Aminotransferase (ALT) 34 7-40 U/L Alkaline Phosphatase 252 H 46-116 U/L Total Protein 6.6 5.7-8.2 g/dL Albumin 3.9 3.2-4.8 g/dL Vitamin D 25-Hydroxy 26.3 L 30.0-100 ng/mL Parathyroid Hormone (Intact) 1319.7 H 18.4-80.1 pg/mL Test 05/09/25 20:33 05/09/25 18:11 05/09/25 13:04 Range/Units POC Glucose 280 H 70-106 mg/dl B-Type Natriuretic Peptide 441.81 0-100 pg/mL White Blood Count 9.4 4.4-10.8 10^3/uL Red Blood Count 2.94 L 4.5-5.90 10^6/uL Hemoglobin 8.3 L 13.5-17.5 g/dL Hematocrit 24.4 L 41.0-53.0 % Mean Corpuscular Volume 82.9 80.0-100.0 fL Mean Corpuscular Hemoglobin 28.2 28.0-32.0 pg Mean Corpuscular Hemoglobin Concent 34.0 32.0-36.0 g/dL Red Cell Distribution Width 14.7 H 11.8-14.3 % Platelet Count 416 140-450 10^3/uL Mean Platelet Volume 8.3 6.9-10.8 fL Neutrophils (%) (Auto) 74.1 37.0-80.0 % Lymphocytes (%) (Auto) 14.5 10.0-50.0 % Monocytes (%) (Auto) 7.3 0.0-12.0 % Eosinophils (%) (Auto) 2.9 0.0-7.0 % Basophils (%) (Auto) 1.2 0.0-2.0 % Neutrophils # (Auto) 6.9 1.6-8.6 10 ^3/uL Lymphocytes # (Auto) 1.4 0.4-5.4 10 ^3/uL Monocytes # (Auto) 0.7 0-1.3 10 ^3/uL Eosinophils # (Auto) 0.3 0-0.8 10 ^3/uL Basophils # (Auto) 0.1 0-0.2 10 ^3/uL Nucleated Red Blood Cells 0.0 % Prothrombin Time 10.4 9.3-11.8 sec Prothrombin Time INR 0.98 0.9-1.15 Activated Partial Thromboplast Time 29.9 24.5-34.5 SEC Sodium Level 139 136-145 mmol/L Potassium Level 5.1 3.5-5.1 mmol/L Chloride Level 104 98-107 mmol/L Carbon Dioxide Level 20 20-31 mmol/L Anion Gap 15 5-15 Blood Urea Nitrogen 123 *H 9-23 mg/dL Creatinine 7.52 H 0.700-1.30 mg/dL Glomerular Filtration Rate Calc 8 >90 mL/min BUN/Creatinine Ratio 16.4 10.0-20.0 Serum Glucose 198 H 74-106 mg/dL Calcium Level 9.0 8.7-10.4 mg/dL Assessment 54-year-old male with chronic kidney disease stage 5 due to severe diabetic nephropathy admitted for fluid overload Acute kidney injury on CKD five Hypervolemia Hypertension Diabetes with diabetic nephropathy Anemia due to chronic kidney disease Surgery consultation for a peritoneal dialysis catheter placement Renal diet Phosphorus binder Resume blood pressure medications Fluid restriction Epogen 3 times a week After placement and surgical healing of catheter site we will start outpatient peritoneal dialysis training. At this time there is no emergent need for inpatient hemodialysis given patient is coherent and not confused and electrolytes arm within manageable limits Plan discussed with: Patient MEERA PETERS MD May 10, 2025 11:58
--- NOTE | 2025-05-10 12:14 | DVHPN2 ---
Subjective The patient is seen and examined at bedside. No complaint today. Reviewed: Care Plan, H&P, Labs, Medications, Previous Orders, Radiology Changes from previous H/P or p: No Changes Eyes: No Pain, No Vision change, No Conjunctivae inflammation, No Eyelid inflammation, No Other, No Redness ENT: No Ear pain, No Ear discharge, No Nose pain, No Nose discharge, No Nose congestion, No Mouth pain, No Mouth swelling, No Throat pain, No Throat swelling, No Other Cardiovascular: Edema Respiratory: No Cough, No Dry, No Shortness of breath, No SOB with excertion, No Wheezing, No Hemoptysis, No Pleuritic Pain, No Sputum, No Other Gastrointestinal: No Nausea, No Vomiting, No Abdominal Pain, No Diarrhea, No Constipation, No Melena, No Hematochezia, No Other Genitourinary: No Dysuria, No Frequency, No Incontinence, No Hematuria, No Retention, No Other Musculoskeletal: other Skin: No Rash, No Lesions, No Jaundice, No Bruising, No Other Objective Vitals Vital Signs Date Time Temp Pulse Resp B/P (MAP) Pulse Ox O2 Delivery O2 Flow Rate FiO2 05/10/25 09:11 134/70 05/10/25 09:00 98.3 88 17 96 98.3 05/10/25 08:10 Room Air* 0 21 Intake/Output Intake and Output 05/10/25 07:00 Intake Total 0 ml Balance 0 ml Intake Oral 0 ml # Voids 1 General Appearance: Alert, Oriented X3, Cooperative, No acute distress HEENT: Atraumatic, PERRLA, EOMI, Mucous membr. moist/pink Neck: Supple Lungs: Clear to auscultation, Normal air movement Cardiovascular: Regular rate, Normal S1, Normal S2, No murmurs, Gallops, Rubs Abdomen: Normal bowel sounds, Soft, No tenderness, No hepatospenomegaly Neuro: Cranial nerves 3-12 NL Psych/Mental Status: Mental status NL Medications Current Medications Medications Dose Ordered Sig/Cassi Route Start Time Stop Time Status Last Admin Dose Admin Multivit/Ca Carb/ B Cmplx/FA/Prenat 1 tab DAILY PO 05/10/25 10:00 05/10/25 09:10 1 TAB Hydralazine HCl 10 mg Q6HP PRN IV 05/09/25 17:15 Amlodipine Besylate 10 mg DAILY PO 05/10/25 10:00 05/10/25 09:11 10 MG Diagnostic Test (Pha) 1 strip IQ4HR 05/09/25 20:00 05/10/25 12:03 1 STRIP Insulin Human Regular IQ4HR SC 05/09/25 20:00 Dextrose 50 ml UD PRN IV 05/09/25 17:15 Sodium Chloride 10 ml Q8HR IV 05/09/25 22:00 Acetaminophen/ Hydrocodone Bitart 1 tab Q4HP PRN PO 05/09/25 17:15 Ondansetron HCl 4 mg Q4HP PRN IV 05/09/25 17:15 Docusate Sodium 100 mg BIDPRN PRN PO 05/09/25 17:15 Acetaminophen 650 mg Q6HP PRN PO 05/09/25 17:15 Nitroglycerin 0.4 mg Q5MINP PRN SL 05/09/25 17:15 Morphine Sulfate 2 mg Q30M PRN IV 05/09/25 17:15 Bumetanide 2.5 mg BIDD IV 05/10/25 09:00 05/10/25 09:10 2.5 MG Epoetin Marcelo-epbx 10,000 unit TUTHSA SC 05/10/25 10:00 Sevelamer HCl 1,600 mg TIDWM PO 05/10/25 12:00 UNV Ergocalciferol 50,000 unit Q7D PO 05/10/25 12:00 UNV Laboratory Results Laboratory Tests 05/10/25 05:34 Chemistry Test 05/09/25 13:04 05/10/25 05:34 Calcium Level 9.0 mg/dL (8.7-10.4) 8.4 mg/dL (8.7-10.4) L Albumin 3.9 g/dL (3.2-4.8) Phosphorus Level 9.3 mg/dL (2.4-5.1) H Total Protein 6.6 g/dL (5.7-8.2) Coagulation Test 05/09/25 13:04 Prothrombin Time 10.4 sec (9.3-11.8) Prothrombin Time INR 0.98 (0.9-1.15) Activated Partial Thromboplast Time 29.9 SEC (24.5-34.5) Cardiac Markers Test 6/30/25 18:11 B-Type Natriuretic Peptide 441.81 pg/mL (0-100) LFT Test 05/10/25 05:34 Alanine Aminotransferase (ALT) 34 U/L (7-40) Alkaline Phosphatase 252 U/L (46-116) H Aspartate Amino Transferase (AST) 25 U/L (13-40) Total Bilirubin 0.2 mg/dL (0.2-1.0) Labs and/or images reviewed: Labs reviewed by me Assessment/Plan Assessment/Plan Acute renal failure Generalized weakness Anemia of chronic disease Diabetes mellitus with hyperglycemia Plan Continuing current management. Appreciate cable spooler input Continuing sliding scale insulin This medical document was created using an electronic medical record system with [employer] direct computerized dictation system. Although this document has been carefully reviewed, there may still be some phonetic and typographical errors. These areas are purely typographical due to imperfections of the software programs, and do not reflect any compromise in the patient's medical care. Plan discussed with: Patient Date of Service: May 10, 2025 Billing Provider: ANNA MARIE MENDOZA MD Common Visit Codes: [id number] INP/OBS CARE(HIGH) ANNA MARIE MENDOZA MD May 10, 2025 12:14
--- NOTE | 2025-05-10 13:00 | DVHINCON2 ---
Date of service: May 10, 2025 Reason for Consultation peritoneal dialysis catheter History of Present Illness History Source: Patient, MD Notes Exam Limitations: No limitations HPI 54-year-old male with past medical history DM, end-stage renal disease is pend ing initial hemodialysis, who presented to [facility] ED with complaint of bilateral lower extremity swelling. Patient reports he has been experiencing lower extremity swelling for the past 2 weeks and was referred by his PCP Dr. Davis to come to the ER for possible peritoneal dialysis catheter placement. Patient states the bilateral leg swelling has improved compared to yesterday. Home Meds Active Scripts Sevelamer Hydrochloride (Renagel) 800 Mg Tab, 800 MG PO TIDWM for 30 Days, #90 TAB Prov:SHERRI PECK 04/22/25 Hydralazine HCl (Hydralazine HCl) 25 Mg Tab, 100 MG PO Q12HR for 30 Days, #240 TAB Prov:SHERRI PECK 04/22/25 Gabapentin (Gabapentin) 300 Mg Cap, 300 MG PO DAILY@2200 for 30 Days, #30 CAP Prov:SHERRI PECK [facility] 04/22/25 Furosemide (Furosemide) 40 Mg Tab, 120 MG PO DAILY for 30 Days, #90 TAB [facility]25 Carvedilol (Carvedilol) 3.125 Mg Tab, 2 TAB PO BID, #180 TAB 3 Refills Prov:SHERRI PECK 04/22/25 Atorvastatin Calcium (ATORVASTATIN CALCIUM) 40 Mg Tab, 40 MG PO DAILY for 30 Days, #30 TAB Prov:SHERRI PECK 04/22/25 Amlodipine Besylate (NORVASC TABLET) 5 Mg Tb, 5 MG PO DAILY for 30 Days, #30 TAB [facility] 04/22/25 Sodium Zirconium Cyclosilicate (Lokelma) 5 Gm John, 10 GM PO TID for 30 Days, #90 PACK 3 Refills Prov:EVER RIVERA DO 07/24/24 Sodium Bicarbonate (Sodium Bicarbonate) 650 Mg Tab, 1300 MG PO TID for 30 Days, #180 TAB 3 Refills Prov:EVER RIVERA DO 07/24/24 Glipizide (Glipizide) 10 Mg Tab, 1 TAB PO BID, #180 TAB 3 Refills Prov:ANNA MARIE MENDOZA MD 10/15/22 Reported Medications Furosemide (Furosemide) 80 Mg Tab, 1 TAB PO DAILY, #30 TAB 5 Refills 04/20/25 Losartan Potassium (Losartan Potassium) 50 Mg Tab, 1 TAB PO DAILY 07/21/24 Pioglitazone Hydrochloride (PIOGLITAZONE HCL) 30 Mg Tab, 1 TAB PO DAILY 07/21/24 Empagliflozin (Jardiance) 25 Mg Tab, 1 TAB PO DAILY 09/25/23 Hctz (Hydrochlorothiazide) 25 Mg Tab, 1 TAB PO DAILY 09/25/23 Amlodipine Besylate (Amlodipine Besylate) 10 Mg Tab, 1 TAB PO DAILY 09/25/23 Past Medical History Cardiac: No pertinent Hx Pulmonary: No pertinent Hx Central Nervous System: No pertinent Hx GI: No pertinent Hx Hemotology/Oncology: No pertinent Hx Hepatobiliary: No pertinent Hx Psychiatric: No pertinent Hx Musculoskeletal: No pertinent Hx Rheumotologic: No pertinent Hx Infectious Disease: No peritnent Hx ENT: No pertinent Hx Renal/: ESRD HD/PD Endocrine: IDDM Dermatology: No pertinent Hx Past Surgical History: No pertinent Hx Patient Family History: Diabetes mellitus G8 MOTHER Smoker: Positive Alocohol: None Drugs: None Lives with: With family Review of Systems Constitutional: No symptom reported Ears, Nose, & Throat: No symptom reported Eyes: No symptom reported Pulmonary/Respiratory: No symptom reported Cardiovascular: No symptom reported Gastrointestinal: No symptom reported Genitourinary: No symptom reported Musculoskeletal: No symptom reported Skin: No symptom reported Psychiatric: No symptom reported Endocrine: No symptom reported Hemotologic/Lymphatic: No symptom reported All Other Systems bilateral leg swelling H&P Exam Vital Signs Vital Signs Date Time Temp Pulse Resp B/P (MAP) Pulse Ox O2 Delivery O2 Flow Rate FiO2 05/10/25 09:11 134/70 05/10/25 09:00 98.3 88 17 96 98.3 05/10/25 08:10 Room Air* 0 21 General Appeara: Well developed Head Exam: Normal inspection Neck Exam: Normal inspection, Non-tender Nasal Exam: Normal inspection Mouth: Normal Inspection Pulmonary/Respiratory: Normal inspection Cardiovascular/Chest: Normal inspection Abdominal Exam: Normal bowel sounds, Soft, No tenderness Rectal Exam: Deferred Legs: bilateral leg swelling Tendon/ Neuro: Normal sensation PUBLICITY DIRECTOR Exam: Normal hearing, Normal speech, PERRL Neuro/Mental St: Alert Appearance: Appropriate appearance Eye contact/ Speech: Cooperative Thoughts/Psych: Normal thought pattern Labs/Xrays Labs Test 05/10/25 11:21 05/10/25 05:34 05/09/25 18:11 05/09/25 13:04 Range/Units POC Glucose 173 H 70-106 mg/dl White Blood Count 8.9 4.4-10.8 10^3/uL Red Blood Count 2.85 L 4.5-5.90 10^6/uL Hemoglobin 7.9 L 13.5-17.5 g/dL Hematocrit 23.7 L 41.0-53.0 % Mean Corpuscular Volume 83.1 80.0-100.0 fL Mean Corpuscular Hemoglobin 27.6 L 28.0-32.0 pg Mean Corpuscular Hemoglobin Concent 33.3 32.0-36.0 g/dL Red Cell Distribution Width 14.6 H 11.8-14.3 % Platelet Count 369 140-450 10^3/uL Mean Platelet Volume 8.0 6.9-10.8 fL Neutrophils (%) (Auto) 69.3 37.0-80.0 % Lymphocytes (%) (Auto) 18.1 10.0-50.0 % Monocytes (%) (Auto) 8.2 0.0-12.0 % Eosinophils (%) (Auto) 3.1 0.0-7.0 % Basophils (%) (Auto) 1.3 0.0-2.0 % Neutrophils # (Auto) 6.2 1.6-8.6 10 ^3/uL Lymphocytes # (Auto) 1.6 0.4-5.4 10 ^3/uL Monocytes # (Auto) 0.7 0-1.3 10 ^3/uL Eosinophils # (Auto) 0.3 0-0.8 10 ^3/uL Basophils # (Auto) 0.1 0-0.2 10 ^3/uL Nucleated Red Blood Cells 0.0 % Sodium Level 139 136-145 mmol/L Potassium Level 5.0 3.5-5.1 mmol/L Chloride Level 104 98-107 mmol/L Carbon Dioxide Level 20 20-31 mmol/L Anion Gap 15 5-15 Blood Urea Nitrogen 119 *H 9-23 mg/dL Creatinine 7.41 H 0.700-1.30 mg/dL Glomerular Filtration Rate Calc 8 >90 mL/min BUN/Creatinine Ratio 16.1 10.0-20.0 Serum Glucose 200 H 74-106 mg/dL Calcium Level 8.4 L 8.7-10.4 mg/dL Phosphorus Level 9.3 H 2.4-5.1 mg/dL Iron Level 61 L 65-175 ug/dL Total Iron Binding Capacity 272 250-425 ug/dL Percent Iron Saturation 22.4 20-55 % Ferritin 215.9 22-322 ng/mL Total Bilirubin 0.2 0.2-1.0 mg/dL Aspartate Amino Transferase (AST) 25 13-40 U/L Alanine Aminotransferase (ALT) 34 7-40 U/L Alkaline Phosphatase 252 H 46-116 U/L Total Protein 6.6 5.7-8.2 g/dL Albumin 3.9 3.2-4.8 g/dL Vitamin D 25-Hydroxy 26.3 L 30.0-100 ng/mL Parathyroid Hormone (Intact) 1319.7 H 18.4-80.1 pg/mL B-Type Natriuretic Peptide 441.81 0-100 pg/mL Prothrombin Time 10.4 9.3-11.8 sec Prothrombin Time INR 0.98 0.9-1.15 Activated Partial Thromboplast Time 29.9 24.5-34.5 SEC Assessment/Plan Problem List: (1) Localized swelling of both lower legs (2) End stage renal disease (3) Acute renal failure Primary Diagnosis End stage renal disease Plan patient complaint of bilateral leg swelling and reduced urine output, patient is scheduled for peritoneal dialysis catheter with general surgery however symptoms have become worse. patient states he was sent to ER by primary for peritoneal dialysis catheter placement. assessment bilateral leg swelling acute renal failure Plan: laparoscopic vs open insertion of peritoneal dialysis catheter Plan discussed with: Patient, Other (Dr. Cleaning) Visit Coding Surgery Date of Service if different f: May 10, 2025 Billing Provider: FABIOLA CLEANING MD Surgery Visit Codes: [id number] - INP CONSULT <80 MIN PENELOPE HERRERA TRUCK SWITCHER May 10, 2025 13:00
[2025-05-10] MEDS: SEVELAMER 800 MG TAB PO SCH (13:23)
[2025-05-10] MEDS: ERGOCALCIFEROL 50,000 UNIT(1.25MG) CAP PO SCH (13:23)
[2025-05-10] MEDS: GABAPENTIN 300 MG CAP PO ONE (13:24)
--- NOTE | 2025-05-10 14:35 | DVH ---
CHEST RADIOGRAPH Indication: preop surgery Technique: Single frontal view of the chest was obtained Comparison: XY CHEST XRAY 1 VIEW on DOS: 07/22/24, XY CHEST PORTABLE on DOS: 09/24/23, CXRP on DOS: , CHEST PORTABLE on DOS: 10/09/22 FINDINGS: Lines and Tubes: None Lungs: No focal consolidation. Pleura: No effusion. No pneumothorax. Cardiomediastinal contours: CARDIOMEGALY Bones: No acute osseous abnormality. IMPRESSION: Cardiomegaly with mild pulmonary edema
[2025-05-10] MEDS: InsuLIN REG 1unit/0.01ml Soln (100units/ml) SC SCH (17:00)
[2025-05-10] MEDS: EPOETIN ALFA-EPBX 10,000 UNIT/1ML VIAL SC SCH (17:22)
[2025-05-10] MEDS: ACETAMINOPHEN 325 MG TAB PO PRN (17:23)
[2025-05-10] MEDS: ACCU-CHEK COMFORT CURVE STRIP VI SCH (17:24)
[2025-05-10 17:50] LABS: COVID19 ANTIGEN SOFIA FIA NEGATIVE (NEGATIVE)
[2025-05-10] MEDS: hydrALAZINE HCL 20 MG/ML VL IV PRN (21:16)
[2025-05-11] VITALS (9 sets, daily range): BP systolic 131–157; BP diastolic 71–88; PULSE 80–100; RESP 17–20; TEMP 98–99; O2SAT 95–98
[2025-05-11] MEDS ORDERED: fentaNYL CITRATE 100 MCG/2 ML VL ONE (08:35)
[2025-05-11] MEDS ORDERED: MIDAZOLAM HCL 2MG/2ML 2ml VIAL (1mg/ml) ONE (08:35)
[2025-05-11] MEDS ORDERED: METOCLOPRAMIDE HCL 5MG/ml INJ 2ml VIAL ONE (08:38)
[2025-05-11] MEDS: BUPIVACAINE 0.5% P/F INJ 10 ML VIAL ONE (09:09)
[2025-05-11] MEDS: LIDOCAINE W/ EPINEPHRINE 1% 20ML VIAL ONE (09:09)
[2025-05-11] MEDS ORDERED: SUGAMMADEX 200mg/2ml Vial (100MG/ML) IV ONE (09:27)
[2025-05-11] MEDS: GABAPENTIN 300 MG CAP PO SCH (10:00)
[2025-05-11] MEDS: HYDROmorphone HCL 2 MG/ML VL/or syr IV PRN (10:29)
--- NOTE | 2025-05-11 11:17 | DVHOP ---
DATE OF SURGERY: 05/11/2025 PREOPERATIVE DIAGNOSIS: Renal failure. POSTOPERATIVE DIAGNOSIS: Renal failure. SURGEON: Trell Cleaning MD. COOKY MACHINE OPERATOR: Benjamin Claros NP. ANESTHESIA: General endotracheal. ANESTHESIOLOGIST: Nurse lab rn. PROCEDURE: Laparoscopic insertion of peritoneal dialysis catheter. DESCRIPTION OF PROCEDURE: Under general anesthesia with the patient's skin prepped and draped and infiltrated with 0.25% Marcaine and 0.5% Xylocaine with epinephrine mixture, an incision was made to the left of the umbilicus and supraumbilical area and the Veress needle inserted by the hanging drop technique in order to establish pneumoperitoneum to 15 mmHg pressure by insufflation with carbon dioxide. With the abdomen fully distended, the needle was removed and replaced with a 5 mm trocar port through which a 0-degree viewing laparoscope was inserted and laparoscopy was performed revealing no obvious unexpected pathology on the serosal surfaces visualized. At this point, the second incision was made in the left subcostal area approximately 3 cm inferior to the subcostal area and the mid clavicular line through which a second port was inserted under direct vision. The second port was then used for insertion of the camera and the first port in the supraumbilical area was used for advancement of the portion of the peritoneal dialysis catheter, which was then advanced into the pelvis and embedded in the true pelvis. The proximal portion of the catheter was then tunneled from the umbilical area to the second 5 mm port site through which it was exteriorized in such a way that the second pledget of Josue was just above the rectus sheath. The first pledget of the Josue was beneath the rectus sheath. The wounds were then irrigated. Hemostasis was meticulously accomplished and the catheter was secured with a 2-0 nylon suture and approximately 1 liter of saline was instilled through the catheter with ease and then when the bag was lowered, it was easily evacuated. The periumbilical incision was closed using Monocryl suture, Dermabond glue and Steri-Strips. The patient remained stable throughout the procedure, left the operating room following an accurate needle and sponge counts. His was thoroughly informed at [phone]. MD NAHUN Conteh/HEATHER/CEDRIC TID: [id number] RECEIPT: [id number]
[2025-05-11] MEDS: ceFAZolin 2 GM/D5W50ml 50 ML IV ONE (12:03)
[2025-05-11] MEDS: LIDOCAINE 2% JELLY 11ml (GLYDO) ONE (12:03)
[2025-05-11] MEDS: METOCLOPRAMIDE HCL 5MG/ml INJ 2ml VIAL IV ONE (12:04)
[2025-05-11] MEDS: ONDANSETRON HCL 4 MG/2 ML VIAL IV ONE (12:04)
[2025-05-11] MEDS ORDERED: ONDANSETRON HCL 4 MG/2 ML VIAL IV ONE (12:51)
--- NOTE | 2025-05-11 13:46 | DVHPN2 ---
Subjective The patient is seen and examined at bedside. The patient just got back from surgery. Very sleepy Reviewed: Care Plan, H&P, Labs, Medications, Previous Orders, Radiology Changes from previous H/P or p: No Changes Eyes: No Pain, No Vision change, No Conjunctivae inflammation, No Eyelid inflammation, No Other, No Redness ENT: No Ear pain, No Ear discharge, No Nose pain, No Nose discharge, No Nose congestion, No Mouth pain, No Mouth swelling, No Throat pain, No Throat swelling, No Other Cardiovascular: Edema Respiratory: No Cough, No Dry, No Shortness of breath, No SOB with excertion, No Wheezing, No Hemoptysis, No Pleuritic Pain, No Sputum, No Other Gastrointestinal: No Nausea, No Vomiting, No Abdominal Pain, No Diarrhea, No Constipation, No Melena, No Hematochezia, No Other Genitourinary: No Dysuria, No Frequency, No Incontinence, No Hematuria, No Retention, No Other Musculoskeletal: other Skin: No Rash, No Lesions, No Jaundice, No Bruising, No Other Objective Vitals Vital Signs Date Time Temp Pulse Resp B/P (MAP) Pulse Ox O2 Delivery O2 Flow Rate FiO2 05/11/25 10:30 86 13 133/61 (85) 97 05/11/25 09:45 Mask 11.0 05/11/25 09:45 98.9 98.9 05/11/25 09:45 97 Intake/Output Intake and Output 05/11/25 07:00 Intake Total 5040 ml Balance 5040 ml Intake Oral 5040 ml # Voids 7 # Bowel Movements 1 General Appearance: Alert, Oriented X3, Cooperative, No acute distress HEENT: Atraumatic, PERRLA, EOMI, Mucous membr. moist/pink Neck: Supple Lungs: Clear to auscultation, Normal air movement Cardiovascular: Regular rate, Normal S1, Normal S2, No murmurs, Gallops, Rubs Abdomen: Normal bowel sounds, Soft, No tenderness, No hepatospenomegaly Neuro: Cranial nerves 3-12 NL Psych/Mental Status: Mental status NL Medications Current Medications Medications Dose Ordered Sig/Cassi Route Start Time Stop Time Status Last Admin Dose Admin Multivit/Ca Carb/ B Cmplx/FA/Prenat 1 tab DAILY PO 05/10/25 10:00 05/10/25 09:10 1 TAB Hydralazine HCl 10 mg Q6HP PRN IV 05/09/25 17:15 05/10/25 21:16 10 MG Amlodipine Besylate 10 mg DAILY PO 05/10/25 10:00 05/10/25 09:11 10 MG Dextrose 50 ml UD PRN IV 05/09/25 17:15 Sodium Chloride 10 ml Q8HR IV 05/09/25 22:00 05/11/25 05:18 10 ML Acetaminophen/ Hydrocodone Bitart 1 tab Q4HP PRN PO 05/09/25 17:15 Ondansetron HCl 4 mg Q4HP PRN IV 05/09/25 17:15 Docusate Sodium 100 mg BIDPRN PRN PO 05/09/25 17:15 Acetaminophen 650 mg Q6HP PRN PO 05/09/25 17:15 05/10/25 17:23 650 MG Nitroglycerin 0.4 mg Q5MINP PRN SL 05/09/25 17:15 Morphine Sulfate 2 mg Q30M PRN IV 05/09/25 17:15 Bumetanide 2.5 mg BIDD IV 05/10/25 09:00 05/11/25 05:20 2.5 MG Epoetin Marcelo-epbx 10,000 unit TUTHSA SC 05/10/25 10:00 05/10/25 17:22 10,000 UNIT Sevelamer HCl 1,600 mg TIDWM PO 05/10/25 12:00 05/10/25 17:18 1,600 MG Ergocalciferol 50,000 unit Q7D PO 05/10/25 12:00 05/10/25 13:23 50,000 UNIT Diagnostic Test (Pha) 1 strip ACHS 05/10/25 17:00 05/11/25 06:00 1 STRIP Insulin Human Regular ACHS SC 05/10/25 17:00 05/10/25 21:15 8 UNITS Gabapentin 300 mg DAILY PO 05/11/25 10:00 Cefazolin Sodium 50 ml @ 50 mls/hr DAILY IV 05/12/25 10:00 Laboratory Results Laboratory Tests 05/10/25 05:34 Labs and/or images reviewed: Labs reviewed by me Assessment/Plan Assessment/Plan Acute renal failure Generalized weakness Anemia of chronic disease Diabetes mellitus with hyperglycemia Plan Continuing current management. Appreciate sleep technologist input Continuing sliding scale insulin Status post Peritoneal cath placement today. will advance diet when he more alert. Per sleep technologist, patient can be dc and wait for the wound heal and start peritoneal dialysis at home. This medical document was created using an electronic medical record system with [employer] direct computerized dictation system. Although this document has been carefully reviewed, there may still be some phonetic and typographical errors. These areas are purely typographical due to imperfections of the software programs, and do not reflect any compromise in the patient's medical care. Plan discussed with: Patient, Other (RN) Date of Service: May 11, 2025 Billing Provider: ANNA MARIE MENDOZA MD Common Visit Codes: [id number] INP/OBS CARE(HIGH) ANNA MARIE MENDOZA MD May 11, 2025 13:46
[2025-05-11 14:33] LABS: Chloride 107 mmol/L (98-107); Sodium 141 mmol/L (136-145)
[2025-05-11 14:34] LABS: Anion Gap 14 (5-15); Carbon Dioxide 20 mmol/L (20-31)
[2025-05-11 14:35] LABS: Calcium 9.1 mg/dL (8.7-10.4)
[2025-05-11 14:36] LABS: Potassium 5.3 mmol/L (3.5-5.1)
[2025-05-11 14:40] LABS: BUN/Creatinine Ratio 15.0 (10.0-20.0); Glucose 152 mg/dL (74-106)
[2025-05-11 14:41] LABS: Blood Urea Nitrogen 112 mg/dL (9-23)
--- NOTE | 2025-05-11 15:41 | DVHPN2 ---
Progress Note Date Seen: May 11, 2025 Medical Necessity Reason Pt with a Central, PICC or Fol: No Subjective Patient reports: Other Objective vital signs Vital Sign Date Time Temp Pulse Resp B/P (MAP) Pulse Ox O2 Delivery O2 Flow Rate FiO2 05/11/25 13:00 99.0 88 18 131/71 (91) 96 99.0 05/11/25 09:45 Mask 11.0 05/11/25 09:45 97 Total Intake and Output 05/10/25 05/10/25 05/11/25 15:00 23:00 07:00 Intake Total 4440 ml 600 ml Balance 4440 ml 600 ml medications Current Medications Medications Dose Ordered Sig/Cassi Route Start Time Stop Time Status Last Admin Dose Admin Multivit/Ca Carb/ B Cmplx/FA/Prenat 1 tab DAILY PO 05/10/25 10:00 05/10/25 09:10 1 TAB Hydralazine HCl 10 mg Q6HP PRN IV 05/09/25 17:15 05/10/25 21:16 10 MG Amlodipine Besylate 10 mg DAILY PO 05/10/25 10:00 05/10/25 09:11 10 MG Dextrose 50 ml UD PRN IV 05/09/25 17:15 Sodium Chloride 10 ml Q8HR IV 05/09/25 22:00 05/11/25 14:00 10 ML Acetaminophen/ Hydrocodone Bitart 1 tab Q4HP PRN PO 05/09/25 17:15 Ondansetron HCl 4 mg Q4HP PRN IV 05/09/25 17:15 Docusate Sodium 100 mg BIDPRN PRN PO 05/09/25 17:15 Acetaminophen 650 mg Q6HP PRN PO 05/09/25 17:15 05/10/25 17:23 650 MG Nitroglycerin 0.4 mg Q5MINP PRN SL 05/09/25 17:15 Morphine Sulfate 2 mg Q30M PRN IV 05/09/25 17:15 Bumetanide 2.5 mg BIDD IV 05/10/25 09:00 05/11/25 05:20 2.5 MG Epoetin Marcelo-epbx 10,000 unit TUTHSA [place] 05/10/25 10:00 05/10/25 17:22 10,000 UNIT Sevelamer HCl 1,600 mg TIDWM PO 05/10/25 12:00 05/10/25 17:18 1,600 MG Ergocalciferol 50,000 unit Q7D PO 05/10/25 12:00 05/10/25 13:23 50,000 UNIT Diagnostic Test (Pha) 1 strip ACHS 05/10/25 17:00 05/11/25 06:00 1 STRIP Insulin Human Regular ACHS SC 05/10/25 17:00 05/10/25 21:15 8 UNITS Gabapentin 300 mg DAILY PO 05/11/25 10:00 Cefazolin Sodium 50 ml @ 50 mls/hr DAILY IV 05/12/25 10:00 Examination: GENERAL:Normal, ABDOMEN:Normal laboratory and microbiology Laboratory Tests 05/11/25 14:15 05/10/25 05:34 Test 05/11/25 14:15 Range/Units Serum Glucose 152 H 74-106 mg/dL Problem List/Assessment/Plan Problem List/Assessment/Plan 54-year-old male with chronic kidney disease stage 5 due to severe diabetic nephropathy admitted for fluid overload Acute kidney injury on CKD five Hypervolemia Hypertension Diabetes with diabetic nephropathy Anemia due to chronic kidney disease s/p PD catheter placement 05/11 Renal diet Phosphorus binder lokelma sodium bicarb po Resume blood pressure medications Fluid restriction Epogen 3 times a week After placement and surgical healing of catheter site we will start outpatient peritoneal dialysis training. At this time there is no emergent need for inpatient hemodialysis given patient is coherent and not confused and electrolytes are within manageable limits Plan discussed with: Patient Dietary Evaluation Review Comments: 1) CCHO 75gm + renal standard 2) Refer CDE on DC Expected Outcomes/Goals: To meet >75% estimated needs Fu 3-5 days Total Time (mins): 50 MEERA PETERS MD May 11, 2025 15:41
[2025-05-11] MEDS: SODIUM ZIRCONIUM CYCL 10 GM PAK PO SCH (15:45)
[2025-05-11] MEDS: SODIUM BICARBONATE 650 MG TAB PO SCH (21:27)
[2025-05-12 01:00] VITALS: BP 159/87; PULSE 102; RESP 20; TEMP 98.5; O2SAT 96
[2025-05-12 05:00] VITALS: BP 144/83; PULSE 94; RESP 18; TEMP 98.5; O2SAT 95
[2025-05-12 08:00] VITALS: PULSE 74; PULSE 85; RESP 17; O2SAT 96
[2025-05-12] MEDS: ceFAZolin 1GM/50ML 50 ML IV SCH (08:13)
[2025-05-12 09:00] VITALS: BP 165/91; PULSE 95; RESP 17; TEMP 97.9; O2SAT 97
[2025-05-12 10:52] LABS: Chloride 104 mmol/L (98-107); Potassium 4.5 mmol/L (3.5-5.1); Sodium 140 mmol/L (136-145)
[2025-05-12 10:53] LABS: Anion Gap 14 (5-15); Carbon Dioxide 22 mmol/L (20-31)
[2025-05-12 10:54] LABS: Calcium 9.2 mg/dL (8.7-10.4)
[2025-05-12 10:59] LABS: BUN/Creatinine Ratio 14.4 (10.0-20.0)
--- NOTE | 2025-05-12 11:15 | DVHPN2 ---
Subjective Date Seen: May 12, 2025 Post op day Post op day: 1 Patient reports: No new complaints, Other Nursing reports: No new complaints General: Normal HNT: Normal Cardiovascular: Normal Respiratory: Normal Gastrointestinal: Normal Genitourinary: Normal Musculoskeletal: Normal Neurological: Normal Objective Vitals Vital Sign Date Time Temp Pulse Resp B/P (MAP) Pulse Ox O2 Delivery O2 Flow Rate FiO2 05/12/25 09:00 97.9 95 17 165/91 (115) 97 97.9 05/12/25 08:00 Room Air* 0 21 Total Intake and Output 05/11/25 05/11/25 05/12/25 15:00 23:00 07:00 Intake Total 100 ml 500 ml 650 ml Balance 100 ml 500 ml 650 ml Medications Current Medications Medications Dose Ordered Sig/Cassi Route Start Time Stop Time Status Last Admin Dose Admin Multivit/Ca Carb/ B Cmplx/FA/Prenat 1 tab DAILY PO 05/10/25 10:00 05/12/25 08:14 1 TAB Hydralazine HCl 10 mg Q6HP PRN IV 05/09/25 17:15 05/11/25 21:27 10 MG Amlodipine Besylate 10 mg DAILY PO 05/10/25 10:00 05/12/25 08:14 10 MG Dextrose 50 ml UD PRN IV 05/09/25 17:15 Sodium Chloride 10 ml Q8HR IV 05/09/25 22:00 05/12/25 05:23 10 ML Acetaminophen/ Hydrocodone Bitart 1 tab Q4HP PRN PO 05/09/25 17:15 Ondansetron HCl 4 mg Q4HP PRN IV 05/09/25 17:15 Docusate Sodium 100 mg BIDPRN PRN PO 05/09/25 17:15 Acetaminophen 650 mg Q6HP PRN PO 05/09/25 17:15 05/10/25 17:23 650 MG Nitroglycerin 0.4 mg Q5MINP PRN SL 05/09/25 17:15 Morphine Sulfate 2 mg Q30M PRN IV 05/09/25 17:15 Bumetanide 2.5 mg BIDD IV 05/10/25 09:00 05/12/25 05:23 2.5 MG Epoetin Marcelo-epbx 10,000 unit TUTHSA [place] 05/10/25 10:00 05/10/25 17:22 10,000 UNIT Sevelamer HCl 1,600 mg TIDWM PO 05/10/25 12:00 05/12/25 08:13 1,600 MG Ergocalciferol 50,000 unit Q7D PO 05/10/25 12:00 05/10/25 13:23 50,000 UNIT Diagnostic Test (Pha) 1 strip ACHS 05/10/25 17:00 05/12/25 06:29 1 STRIP Insulin Human Regular ACHS SC 05/10/25 17:00 05/10/25 21:15 8 UNITS Gabapentin 300 mg DAILY PO 05/11/25 10:00 05/12/25 08:14 300 MG Cefazolin Sodium 50 ml @ 50 mls/hr DAILY IV 05/12/25 10:00 05/12/25 08:13 50 MLS/HR Sodium Bicarbonate 650 mg BID PO 05/11/25 22:00 05/12/25 08:13 650 MG Zirconium Oxide 10 gm DAILY PO 05/11/25 15:45 General: Normal, Well developed Head/Eyes: Normal ENT: Normal Neck: Normal Lungs: Normal Cardiovascular: Normal Abdominal: Normal, Soft Musculoskeletal: Normal Extremities: Normal Skin: Normal Neurological: Normal Labs and Microbiology Laboratory Tests 05/10/25 05:34 Test 05/12/25 10:20 Range/Units Serum Glucose Pending Ass/Plan Labs and/or images reviewed: Labs reviewed by me Problem List 54-year-old male with chronic kidney disease stage 5 due to severe diabetic nephropathy admitted for fluid overload Acute kidney injury on CKD five Hypervolemia Hypertension Diabetes with diabetic nephropathy Anemia due to chronic kidney disease s/p PD catheter placement 05/11 Renal diet Phosphorus binder lokelma sodium bicarb po Resume blood pressure medications Fluid restriction Epogen 3 times a week After placement and surgical healing of catheter site we will start outpatient peritoneal dialysis training. At this time there is no emergent need for inpatient hemodialysis given patient is coherent and not confused and electrolytes are within manageable limits Assessment/Plan Surgery: Peritoneal dialysis catheter placement Post-Op Day: #1 Complaints: - Soreness and tenderness around incision sites Physical Exam: - Patient appears comfortable while resting in bed - Abdomen is soft and appropriately -tender to palpation - Incision sites demonstrate expected post-operative tenderness with soreness reported in the surrounding areas Assessment: - Post-operative recovery progressing appropriately following peritoneal dialysis catheter insertion - Patient is tolerating oral intake well and demonstrating normal gastrointestinal function with passage of flatus and regular bowel movements - Incision site tenderness is consistent with expected post-operative healing process - End-stage renal disease requiring peritoneal dialysis Plan: - Patient has expressed readiness for discharge home - Clear instructions provided that the newly placed peritoneal dialysis catheter must remain unused until complete healing occurs - Follow-up in the surgery clinic in one to two weeks for wound assessment and clearance to initiate peritoneal dialysis treatments Prognosis: Excellent Plan discussed with patient, Dr. Cleaning Visit Coding Surgery Date of Service if different f: May 12, 2025 Billing Provider: FABIOLA CLEANING MD Surgery Visit Codes: [id number] INP/OBS CARE(HIGH) PENELOPE HERRERA NP May 12, 2025 11:15
[2025-05-12 11:18] LABS: Glucose 213 mg/dL (74-106)
[2025-05-12 11:21] LABS: Blood Urea Nitrogen 107 mg/dL (9-23)
--- NOTE | 2025-05-12 12:17 | DVHDS2 ---
Discharge Summary Date of Admission May 09, 2025 at 17:09 Date of Discharge: May 12, 2025 Admitting Diagnosis Acute renal failure Generalized weakness Anemia of chronic disease Diabetes mellitus with hyperglycemia Labs/Diagnostic Data: Laboratory Results Test 05/12/25 10:20 05/12/25 05:29 05/10/25 17:00 05/10/25 05:34 Sodium Level 140 mmol/L (136-145) Potassium Level 4.5 mmol/L (3.5-5.1) Chloride Level 104 mmol/L (98-107) Carbon Dioxide Level 22 mmol/L (20-31) Anion Gap 14 (5-15) Blood Urea Nitrogen 107 mg/dL (9-23) Creatinine 7.45 mg/dL (0.700-1.30) Glomerular Filtration Rate Calc 8 mL/min (>90) BUN/Creatinine Ratio 14.4 (10.0-20.0) Serum Glucose 213 mg/dL (74-106) Calcium Level 9.2 mg/dL (8.7-10.4) Phosphorus Level 8.3 mg/dL (2.4-5.1) POC Glucose 143 mg/dl (70-106) Influenza Type A Antigen Negative (Negative) Influenza Type B Antigen Negative (Negative) SARS-CoV-2 Antigen (Rapid) Negative (NEGATIVE) White Blood Count 8.9 10^3/uL (4.4-10.8) Red Blood Count 2.85 10^6/uL (4.5-5.90) Hemoglobin 7.9 g/dL (13.5-17.5) Hematocrit 23.7 % (41.0-53.0) Mean Corpuscular Volume 83.1 fL (80.0-100.0) Mean Corpuscular Hemoglobin 27.6 pg (28.0-32.0) Mean Corpuscular Hemoglobin Concent 33.3 g/dL (32.0-36.0) Red Cell Distribution Width 14.6 % (11.8-14.3) Platelet Count 369 10^3/uL (140-450) Mean Platelet Volume 8.0 fL (6.9-10.8) Neutrophils (%) (Auto) 69.3 % (37.0-80.0) Lymphocytes (%) (Auto) 18.1 % (10.0-50.0) Monocytes (%) (Auto) 8.2 % (0.0-12.0) Eosinophils (%) (Auto) 3.1 % (0.0-7.0) Basophils (%) (Auto) 1.3 % (0.0-2.0) Neutrophils # (Auto) 6.2 10 ^3/uL (1.6-8.6) Lymphocytes # (Auto) 1.6 10 ^3/uL (0.4-5.4) Monocytes # (Auto) 0.7 10 ^3/uL (0-1.3) Eosinophils # (Auto) 0.3 10 ^3/uL (0-0.8) Basophils # (Auto) 0.1 10 ^3/uL (0-0.2) Nucleated Red Blood Cells 0.0 % Iron Level 61 ug/dL (65-175) Total Iron Binding Capacity 272 ug/dL (250-425) Percent Iron Saturation 22.4 % (20-55) Ferritin 215.9 ng/mL (22-322) Total Bilirubin 0.2 mg/dL (0.2-1.0) Aspartate Amino Transferase (AST) 25 U/L (13-40) Alanine Aminotransferase (ALT) 34 U/L (7-40) Alkaline Phosphatase 252 U/L (46-116) Total Protein 6.6 g/dL (5.7-8.2) Albumin 3.9 g/dL (3.2-4.8) Vitamin D 25-Hydroxy 26.3 ng/mL (30.0-100) Parathyroid Hormone (Intact) 1319.7 pg/mL (18.4-80.1) Hepatitis B Surface Antigen Negative (Negative) Test 05/09/25 18:11 05/09/25 13:04 B-Type Natriuretic Peptide 441.81 pg/mL (0-100) Prothrombin Time 10.4 sec (9.3-11.8) Prothrombin Time INR 0.98 (0.9-1.15) Activated Partial Thromboplast Time 29.9 SEC (24.5-34.5) Other Laboratory Tests 05/12/25 10:20 05/10/25 05:34 Brief Hx & Hospital Course: This is a 54 years old male with past medical history diabetes type 2, end-stage renal disease with the pending initial hemodialysis, HIV come to [facility] because of bilateral lower extremity swelling. Patient has been experiencing low extremity swelling for two weeks. And was referred by his primary care physician, Dr. Davis to come to emergency department for possible initiate dialysis. Patient was admitted. Peritoneal dialysis cath was placed. Nephrology see the patient. Recommend peritoneal dialysis as outpatient. The patient got the peritoneal dialysis cath placed yesterday and will be discharged today. I advised the patient to follow up with primary care physician 1-2 weeks. Follow up with Nephrology per schedule to initiate peritoneal dialysis. Activity as tolerated. Diet renal diet. Physical exam: HEENT: Normocephalic atraumatic pupils equal react to light and accommodation. Extraocular muscles intact, conjunctiva pink, oropharynx moist, no thrush, no exudate. Lymphatic: No lymphadenopathy Cardiovascular exam: S1, S2 was heard. No murmurs, rubs, gallops Lung: Clear on auscultation bilaterally, no wheeze, rale, rhonchi. GI: Abdominal soft, nondistended, nontenderness, positive bowel sounds. Extremity: No crepitus, cyanosis, edema. Pedal pulses present bilateral. Full range of motion. Skin: Normal turgor, no rash. Psych: Alert, oriented x3. Neurology: No focal deficits, cranial nerve II to XII grossly intact. This medical document was created using an electronic medical record system with M*M [employer] direct computerized dictation system. Although this document has been carefully reviewed, there may still be some phonetic and typographical errors. These areas are purely typographical due to imperfections of the software programs, and do not reflect any compromise in the patient's medical care. 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 Medications: Resume meds Scheduled Amlodipine Besylate (Amlodipine Besylate), 1 TAB PO DAILY, (Reported) Amlodipine Besylate (Norvasc Tablet), 5 MG PO DAILY Atorvastatin Calcium (Atorvastatin Calcium), 40 MG PO DAILY Carvedilol (Carvedilol), 2 TAB PO BID Empagliflozin (Jardiance), 1 TAB PO DAILY, (Reported) Furosemide (Furosemide), 1 TAB PO DAILY, (Reported) Furosemide (Furosemide), 120 MG PO DAILY Gabapentin (Gabapentin), 300 MG PO DAILY@2200 Glipizide (Glipizide), 1 TAB PO BID Hctz (Hydrochlorothiazide), 1 TAB PO DAILY, (Reported) Hydralazine HCl (Hydralazine HCl), 100 MG PO Q12HR Losartan Potassium (Losartan Potassium), 1 TAB PO DAILY, (Reported) Pioglitazone Hydrochloride (Pioglitazone Hcl), 1 TAB PO DAILY, (Reported) Sevelamer Hydrochloride (Renagel), 800 MG PO TIDWM Sodium Bicarbonate (Sodium Bicarbonate), 1,300 MG PO TID Sodium Zirconium Cyclosilicate (Lokelma), 10 GM PO TID Discharge Statement: "Patient was advised to return to the ER or call 911 if any headaches, dizziness, shortness of breath, chest pain, abdominal pain, bleeding, fevers, or worsening of medical condition. Patient was counseled about treatment plan, medications, possible side effects, patientverbalized understanding. All questions were answered to the best of my ability. This discharge took greater then 30 minutes in planning, reviewing documentation, counseling the patient, and discussing with other team members." ASSESSMENT ASSESSMENT Assessment ESRD, on pd Date of Service: May 12, 2025 Billing Provider: ANNA MARIE MENDOZA MD Common Visit Codes: [id number] DISCH DAY >30min ANNA MARIE MENDOZA MD May 12, 2025 12:17
[2025-05-12 12:36] VITALS: BP 149/76; PULSE 92; RESP 16; TEMP 98.2; O2SAT 96
--- NOTE | 2025-05-12 12:39 | DVHPN2 ---
Progress Note Date Seen: May 12, 2025 Medical Necessity Reason Pt with a Central, PICC or Fol: No Subjective Patient reports: No new complaints Objective vital signs Vital Sign Date Time Temp Pulse Resp B/P (MAP) Pulse Ox O2 Delivery O2 Flow Rate FiO2 05/12/25 12:36 98.2 92 16 149/76 (100) 96 98.2 05/12/25 08:00 Room Air* 0 21 Total Intake and Output 05/11/25 05/11/25 05/12/25 15:00 23:00 07:00 Intake Total 100 ml 500 ml 650 ml Balance 100 ml 500 ml 650 ml medications Current Medications Medications Dose Ordered Sig/Cassi Route Start Time Stop Time Status Last Admin Dose Admin Multivit/Ca Carb/ B Cmplx/FA/Prenat 1 tab DAILY PO 05/10/25 10:00 05/12/25 08:14 1 TAB Hydralazine HCl 10 mg Q6HP PRN IV 05/09/25 17:15 05/11/25 21:27 10 MG Amlodipine Besylate 10 mg DAILY PO 05/10/25 10:00 05/12/25 08:14 10 MG Dextrose 50 ml UD PRN IV 05/09/25 17:15 Sodium Chloride 10 ml Q8HR IV 05/09/25 22:00 05/12/25 05:23 10 ML Acetaminophen/ Hydrocodone Bitart 1 tab Q4HP PRN PO 05/09/25 17:15 Ondansetron HCl 4 mg Q4HP PRN IV 05/09/25 17:15 Docusate Sodium 100 mg BIDPRN PRN PO 05/09/25 17:15 Acetaminophen 650 mg Q6HP PRN PO 05/09/25 17:15 05/10/25 17:23 650 MG Nitroglycerin 0.4 mg Q5MINP PRN SL 05/09/25 17:15 Morphine Sulfate 2 mg Q30M PRN IV 05/09/25 17:15 Bumetanide 2.5 mg BIDD IV 05/10/25 09:00 05/12/25 05:23 2.5 MG Epoetin Marcelo-epbx 10,000 unit TUTHSA [place] 05/10/25 10:00 05/10/25 17:22 10,000 UNIT Sevelamer HCl 1,600 mg TIDWM PO 05/10/25 12:00 05/12/25 11:50 1,600 MG Ergocalciferol 50,000 unit Q7D PO 05/10/25 12:00 05/10/25 13:23 50,000 UNIT Diagnostic Test (Pha) 1 strip ACHS 05/10/25 17:00 05/12/25 06:29 1 STRIP Insulin Human Regular ACHS SC 05/10/25 17:00 05/10/25 21:15 8 UNITS Gabapentin 300 mg DAILY PO 05/11/25 10:00 05/12/25 08:14 300 MG Cefazolin Sodium 50 ml @ 50 mls/hr DAILY IV 05/12/25 10:00 05/12/25 08:13 50 MLS/HR Sodium Bicarbonate 650 mg BID PO 05/11/25 22:00 05/12/25 08:13 650 MG Zirconium Oxide 10 gm DAILY PO 05/11/25 15:45 Examination: GENERAL:Normal, CVS:Normal laboratory and microbiology Laboratory Tests 05/12/25 10:20 05/10/25 05:34 Test 05/12/25 10:20 Range/Units Serum Glucose 213 H 74-106 mg/dL Problem List/Assessment/Plan Problem List/Assessment/Plan 54-year-old male with chronic kidney disease stage 5 due to severe diabetic nephropathy admitted for fluid overload Acute kidney injury on CKD 5 Hypervolemia Hypertension hyperkalemia Diabetes with diabetic nephropathy Anemia due to chronic kidney disease s/p PD catheter placement 05/11 Renal diet Phosphorus binder lokelma sodium bicarb po Resume blood pressure medications Fluid restriction Epogen 3 times a week Call office next week to arrange PD dialysis education and start manual exchanges in clinic Plan discussed with: Patient My Orders My Orders Orders - MEERA PETERS MD Procedure Category Date Status Time Sodium Bicarb Tab PHA 05/11/25 In Process 22:00 Sodium Zirconium PHA 05/11/25 In Process Cyclosilicate 15:45 Dietary Evaluation Review Comments: 1) CCHO 75gm + renal standard 2) Refer CDE on DC Expected Outcomes/Goals: To meet >75% estimated needs Fu 3-5 days MEERA PETERS MD May 12, 2025 12:39
== END 2025-05-12 12:52 | disposition home or self-care (01) | DRG 444 ==
LOC: ER 11:16 → OVERFLOW 17:09 → TELE-WESTW 23:48
PROVIDERS: ADMIT Internal Medicine; ATTEND Internal Medicine
PROC: 0WHG43Z Insertion of Infusion Device into Peritoneal Cavity, Percutaneous Endoscopic Approach (ICD-10-PCS; principal; 2025-05-11 08:44)
DX: N17.9 Acute kidney failure, unspecified (principal); D63.1 Anemia in chronic kidney disease; I12.0 Hypertensive chronic kidney disease with stage 5 chronic kidney disease or end stage renal disease; E11.22 Type 2 diabetes mellitus with diabetic chronic kidney disease; E87.70 Fluid overload, unspecified; N18.6 End stage renal disease; E11.65 Type 2 diabetes mellitus with hyperglycemia; Z99.2 Dependence on renal dialysis; Z20.822 Contact with and (suspected) exposure to COVID-19; F17.210 Nicotine dependence, cigarettes, uncomplicated; Z83.3 Family history of diabetes mellitus; Z79.899 Other long term (current) drug therapy; Z79.84 Long term (current) use of oral hypoglycemic drugs; Z79.4 Long term (current) use of insulin
CPT/HCPCS: 36415; 71045; 80048; 80053; 82306; 82728; 82962; 83540; 83550; 83880; 83970; 84100; 85025; 85610; 85730; 86850; 86900; 86901; 87340; 87426; 87804; G0378; J1100; J1815; J2250; J2405; J3490

== ENCOUNTER 2025-10-06 23:58 | Inpatient (IN) | payer MEDICARE, MEDICAID ==
[~2025-10-06] VITALS: Ht 170.2 cm; Wt 75.9 kg
[~2025-10-06 23:58] MED LIST changes: -CALC667C PO; -GABA-1308 PO
[2025-10-07] VITALS (7 sets, daily range): BP systolic 153–163; BP diastolic 77–107; PULSE 85–94; RESP 17–19; TEMP 97.6–98.3; O2SAT 97–100
[2025-10-07 00:43] LABS: Hematocrit 33.3 % (41.0-53.0); Hemoglobin 11.3 g/dL (13.5-17.5); Mean Corpuscular Hemoglobin 28.4 pg (28.0-32.0); Mean Corpuscular Volume 84.2 fL (80.0-100.0); Nucleated Red Blood Cells % 0.0 %
[2025-10-07] MEDS: ceFAZolin 1GM/50ML 50 ML IV ONE (00:45)
[2025-10-07] MEDS: VANCOMYCIN 1GM/250ML KIT 250 ML IV ONE ×2 (00:45→12:45)
[2025-10-07 00:56] LABS: Alanine Aminotransferase 22 U/L (7-40); Albumin 4.4 g/dL (3.2-4.8); Anion Gap 12 (5-15); BUN/Creatinine Ratio 8.3 (10.0-20.0); Calcium 9.2 mg/dL (8.7-10.4); Carbon Dioxide 29 mmol/L (20-31); Total Protein 8.1 g/dL (5.7-8.2)
[2025-10-07 00:58] LABS: Alkaline Phosphatase 125 U/L (46-116); Bilirubin, Total 0.2 mg/dL (0.2-1.0); Blood Urea Nitrogen 56 mg/dL (9-23); Chloride 90 mmol/L (98-107); Glucose 239 mg/dL (74-106); Potassium 3.2 mmol/L (3.5-5.1); Sodium 131 mmol/L (136-145)
--- NOTE | 2025-10-07 01:01 | ED.PDOC ---
Musculoskeletal HPI Comments 55-year-old male who came to ER for wound check. Patient does have history of diabetes. Noted nonhealing wound on his right great toe for the past 4 days. Patient was advised by his primary care provider the proceed to the ER. Denies any fever Chief Complaint: Wound Check Time Seen by MD: 01:01 Primary Care Provider: ABHISHEK Oviedo Notes: Nurses Notes Allergies: Coded Allergies: No Known Drug Allergy (Verified Allergy, Unknown, 10/27/24) Home Meds Active Scripts Sevelamer Hydrochloride (Renagel) 800 Mg Tab, 800 MG PO TIDWM for 30 Days, #90 TAB Prov:SHERRI PECK [facility] 04/22/25 Hydralazine HCl (Hydralazine HCl) 25 Mg Tab, 100 MG PO Q12HR for 30 Days, #240 TAB [facility]25 Gabapentin (Gabapentin) 300 Mg Cap, 300 MG PO DAILY@2200 for 30 Days, #30 CAP [facility] 04/22/25 Furosemide (Furosemide) 40 Mg Tab, 120 MG PO DAILY for 30 Days, #90 TAB [facility] 04/22/25 Carvedilol (Carvedilol) 3.125 Mg Tab, 2 TAB PO BID, #180 TAB 3 [facility] 04/22/25 Atorvastatin Calcium (ATORVASTATIN CALCIUM) 40 Mg Tab, 40 MG PO DAILY for 30 Days, #30 TAB [facility] 04/22/25 Amlodipine Besylate (NORVASC TABLET) 5 Mg Tb, 5 MG PO DAILY for 30 Days, #30 TAB [facility] 04/22/25 Sodium Zirconium Cyclosilicate (Lokelma) 5 Gm John, 10 GM PO TID for 30 Days, #90 PACK 3 Refills Prov:EVER RIVERA DO 07/24/24 Sodium Bicarbonate (Sodium Bicarbonate) 650 Mg Tab, 1300 MG PO TID for 30 Days, #180 TAB 3 Refills Prov:EVER RIVERA DO 07/24/24 Glipizide (Glipizide) 10 Mg Tab, 1 TAB PO BID, #180 TAB 3 Refills Prov:ANNA MARIE MENDOZA MD 10/15/22 Reported Medications Furosemide (Furosemide) 80 Mg Tab, 1 TAB PO DAILY, #30 TAB 5 Refills 04/20/25 Losartan Potassium (Losartan Potassium) 50 Mg Tab, 1 TAB PO DAILY 07/21/24 Pioglitazone Hydrochloride (PIOGLITAZONE HCL) 30 Mg Tab, 1 TAB PO DAILY 07/21/24 Empagliflozin (Jardiance) 25 Mg Tab, 1 TAB PO DAILY 09/25/23 Hctz (Hydrochlorothiazide) 25 Mg Tab, 1 TAB PO DAILY 09/25/23 Amlodipine Besylate (Amlodipine Besylate) 10 Mg Tab, 1 TAB PO DAILY 09/25/23 Information Source: Patient Mode of Arrival: Ambulatory Location: Right Extremity Location: Great Toe Past Medical History PAST MEDICAL HISTORY: DM, ESRD, HIV Surgical History (Other): Amputation 5th digit left foot Family History Family History: Reviewed,noncontributory to illness, Unknown Social History Smoker: Non-Smoker Alcohol: Denies ETOH Use Drugs: Denies Drug Use Lives In: Home Constitutional: denies: chills, diaphoresis, fatigue, fever, malaise, sweats, weakness, others EENTM: denies: blurred vision, double vision, ear bleeding, ear discharge, ear drainage, ear pain, ear ringing, eye pain, eye redness, hearing loss, mouth pain, mouth swelling, nasal discharge, nose bleeding, nose congestion, nose pain, photophobia, tearing, throat pain, throat swelling, voice changes, others Respiratory: denies: cough, hemoptysis, orthopnea, SOB at rest, shortness of breath, SOB with excertion, stridor, wheezing, others Cardiovascular: denies: chest pain, dizzy spells, diaphoresis, Dyspnea on exertion, edema, irregular heart beat, left arm pain, lightheadedness, palpitati ons, PND, syncope, others Gastrointestinal: denies: abdomen distended, abdominal pain, blood streaked bowels, constipated, diarrhea, dysphagia, difficulty swallowing, hematemesis, melena, nausea, poor appetite, poor fluid intake, rectal bleeding, rectal pain, vomiting, others Genitourinary: denies: burning, dysuria, flank pain, frequency, hematuria, incontinence, penile discharge, penile sore, pain, testicle pain, testicle swelling, urgency, others Neurological: denies: dizziness, fainting, headache, left sided numbness, left sided weakness, numbness, paresthesia, pre-existing deficit, right sided numbness, right sided weakness, seizure, speech problems, tingling, tremors, weakness, others Musculoskeletal: denies: back pain, gout, joint pain, joint swelling, muscle pain, muscle stiffness, neck pain, others Integumetry: reports: wounds (Great toe right); denies: bruises, change in color, change in hair/nails, dryness, laceration, lesions, lumps, rash, others Allergic/Immunocompromised: denies: Difficulty Healing, Frequent Infections, Hives, Itching, others Hematologic/Lymphatic: denies: anemia, blood clots, easy bleeding, easy bruising, swollen glands, others Endocrine: denies: excessive hunger, excessive sweating, excessive thirst, excessive urination, flushing, intolerance to cold, intolerance to heat, unexplained weight gain, unexplained weight loss, others Psychiatric: denies: anxiety, bipolar disorder, depression, hopeless, panic disorder, schizophrenia, sleepless, suicidal, others Physical Exam General Appearance: No Apparent Distress, Normal HEENT: Normal ENT Inspection, Pharynx Normal, TMs Normal Neck: Full Range of Motion, Non-Tender, Normal, Normal Inspection Respiratory: Chest Non-Tender, Lungs Clear, No Accessory Muscle Use, No Respiratory Distress, Normal Breath Sounds Cardiovascular: No Edema, No JVD, No Murmur, No Gallop, Normal Peripheral Pulses, Regular Rate/Rhythm Breast Exam: Deferred Gastrointestinal: No Organomegaly, Non Tender, No Pulsatile Mass, Normal Bowel Sounds, Soft Genitalia: Deferred Pelvic: Deferred Rectal: Deferred Extremities: No calf tenderness, Normal capillary refill, Normal inspection, Normal range of motion, Non-tender, No pedal edema Musculoskeletal : Apperance: Normal Neurologic: Alert, fashion supervisor II-XII nml as Tested, No Motor Deficits, Normal Affect, Normal Mood, No Sensory Deficits Cerebellar Function: Normal Reflexes: Normal Skin: Dry, Normal Color, Warm Lymphatic: No Adenopathy Was a procedure done? Was a procedure done?: No Differential Diagnosis EXT Differential Diagnosis: Cellulitis, Compartment Syndrome, Fracture, Sprain, Dislocation, Laceration, Gout, Myocardial Infarction, Septic, Neurovascular injury, Arthritis, Bursitis, Other X-Ray, Labs, Meds, VS Vital Signs Date Time Temp Pulse Resp B/P (MAP) Pulse Ox O2 Delivery O2 Flow Rate FiO2 10/07/25 00:00 99.2 98 16 145/103 100 99.2 Lab Test 10/07/25 00:28 Range/Units White Blood Count 12.0 H 4.4-10.8 10^3/uL Red Blood Count 3.96 L 4.5-5.90 10^6/uL Hemoglobin 11.3 L 13.5-17.5 g/dL Hematocrit 33.3 L 41.0-53.0 % Mean Corpuscular Volume 84.2 80.0-100.0 fL Mean Corpuscular Hemoglobin 28.4 28.0-32.0 pg Mean Corpuscular Hemoglobin Concent 33.7 32.0-36.0 g/dL Red Cell Distribution Width 15.8 H 11.8-14.3 % Platelet Count 429 140-450 10^3/uL Mean Platelet Volume 7.5 6.9-10.8 fL Neutrophils (%) (Auto) 73.1 37.0-80.0 % Lymphocytes (%) (Auto) 17.3 10.0-50.0 % Monocytes (%) (Auto) 7.2 0.0-12.0 % Eosinophils (%) (Auto) 1.8 0.0-7.0 % Basophils (%) (Auto) 0.6 0.0-2.0 % Neutrophils # (Auto) 8.8 H 1.6-8.6 10 ^3/uL Lymphocytes # (Auto) 2.1 0.4-5.4 10 ^3/uL Monocytes # (Auto) 0.9 0-1.3 10 ^3/uL Eosinophils # (Auto) 0.2 0-0.8 10 ^3/uL Basophils # (Auto) 0.1 0-0.2 10 ^3/uL Nucleated Red Blood Cells 0.0 % Sodium Level 131 L 136-145 mmol/L Potassium Level 3.2 L 3.5-5.1 mmol/L Chloride Level 90 L 98-107 mmol/L Carbon Dioxide Level 29 20-31 mmol/L Anion Gap 12 5-15 Blood Urea Nitrogen 56 H 9-23 mg/dL Creatinine 6.71 H 0.700-1.30 mg/dL Glomerular Filtration Rate Calc 9 >90 mL/min BUN/Creatinine Ratio 8.3 L 10.0-20.0 Serum Glucose 239 H 74-106 mg/dL Lactic Acid Level 1.2 0.4-2.0 mmol/L Calcium Level 9.2 8.7-10.4 mg/dL Total Bilirubin 0.2 0.2-1.0 mg/dL Aspartate Amino Transferase (AST) 19 13-40 U/L Alanine Aminotransferase (ALT) 22 7-40 U/L Alkaline Phosphatase 125 H 46-116 U/L Total Protein 8.1 5.7-8.2 g/dL Albumin 4.4 3.2-4.8 g/dL PROCEDURE(s): RFOOT - R FOOT 3 VIEW XRAY REASON: right foot wound / blackened ORDER NUMBER(s): [id number], ACCESSION NUMBER(s): [id number] CLINICAL INDICATION: right foot wound / blackened TECHNIQUE: XYXY R FOOT 3 VIEW XRAY Comparison: XY L FOOT 3 VIEW XRAY on DOS: 03/11/25, XY L FOOT 3 VIEW XRAY on DOS: 12/17/24, XY L FOOT 3 VIEW XRAY on DOS: 12/03/24, XY L FOOT 3 VIEW XRAY on DOS: 09/30/24, L FOOT COMPLETE XRAY on DOS: 10/18/22 FINDINGS/IMPRESSION: : There is no evidence of acute fracture or dislocation. Vascular calcifications. Time of 1ST Reevaluation: 00:58 Reevaluation 1ST: Unchanged Patient Education/Counseling: Diagnosis, Treatment Family Education/Counseling: No Family Present Sepsis Sepsis Reasesment Focused Exam Orders: Laboratory Tests 10/07/25 00:28: Lactic Acid Level 1.2 Departure 1 Departure Time of Disposition: 02:29 Impression: Primary Impression: End stage renal disease Additional Impressions: Diabetes mellitus with hyperglycemia Cellulitis of right foot Disposition: ADMITTED INPATIENT Admit to: Med Surg Condition: Guarded Comments 55-year-old male with a history of renal failure and prior left foot cellulitis now with right great toe cellulitis and diabetic ulcer. His BUN creatinine are quite high. His blood sugar is elevated. Patient was given IV antibiotics. Patient will need to be admitted for supportive care and further workup Critical Care Note Critical Care Time?: Yes (35 min-critical care time only) Critical care comment: Follow up with your primary physician Return to the ED for any worsening symptoms or concerns for any worsening symptoms or concerns Stability Stability form required: No Heart Score Heart Score: Heart Score Response (Comments) Value History N/A 0 EKG N/A 0 Age N/A 0 Risk Factors N/A 0 Troponin N/A 0 Total 0 I personally scribed for CONSTANCE URIAS MD ([email or web address]) on 10/07/25 at 01:01. Electronically submitted by Alexis Reed ([facility] I personally scribed for CONSTANCE URIAS MD ([email or web address]) on 10/07/25 at 01:03. Electronically submitted by Alexis Reed ([facility] I personally scribed for CONSTANCE URIAS MD (ASHLEY) on 10/07/25 at 02:17. Electronically submitted by Alexis Reed ([facility] CONSTANCE URIAS MD Oct 07, 2025 01:01
--- NOTE | 2025-10-07 01:42 | DVH ---
CLINICAL INDICATION: right foot wound / blackened TECHNIQUE: XYXY R FOOT 3 VIEW XRAY Comparison: XY L FOOT 3 VIEW XRAY on DOS: 03/11/25, XY L FOOT 3 VIEW XRAY on DOS: 12/17/24, XY L FOOT 3 VIEW XRAY on DOS: 12/03/24, XY L FOOT 3 VIEW XRAY on DOS: 09/30/24, L FOOT COMPLETE XRAY on DOS: 10/18/22 FINDINGS/IMPRESSION: : There is no evidence of acute fracture or dislocation. Vascular calcifications.
[2025-10-07] MEDS ORDERED: VANCOMYCIN PER PHARMACY 0 MG IV SCH (04:00)
[2025-10-07] MEDS: INSULIN LANTUS (GLARGINE) 1 /0.01ml (100units/ml) SC ONE (04:00)
[2025-10-07] MEDS ORDERED: DEXTROSE (50%) 50ML SYRG IV PRN (04:00)
[2025-10-07] MEDS: POTASSIUM CHL 20 Meq TABLET PO ONE (04:00)
--- NOTE | 2025-10-07 04:31 | DVHHPRES ---
History of Present Illness Resident Creating Document: KERWIN REYNA RESIDENT History of Present Illness This is a 55 year old male with past medical history of DM 2, ESRD on peritoneal dialysis catheter placement on April 2025, anemia of chronic disease, hypertension, peripheral neuropathy, BPH came to ER with a complaint of right great toe wound for last 4 days. Patient brought a pair of new shoe and blister noted on right great toe which bust and nonhealing wound noted which looks mild swollen, redness around the wound but no active foul smelling discharge. Patient history of left 5th toe amputation 2022 due to complication of diabetic foot. Patient compliance with his medication, denies any trauma, injury, MVA or recent sick contact. Currently patient denies any fever cough, SOB, chest pain, headache, abdominal pain, dysuria or any other acute distress. Patient follow- up with Podiatry Dr. Steele and nephrology for CKD. Past medical history: As above Past surgical: As above Personal history: Denies any EtOH or illicit drug. Smoking 1 pack/3 days. Social history: Lives with family Allergy: No known allergy PCP: Dr. Davis Home medication: Empagliflozin, carvedilol, furosemide, gabapentin, glipizide, hydralazine, pioglitazone, sevelamer, Lokelma, Humulin insulin, tamsulosin. Review of Systems Constitutional: Yes: Weakness, Malaise; No: Fever, Chills, Sweats, Other Eyes: No: Pain, Vision change, Conjunctivae inflammation, Eyelid inflammation, Other, Redness ENT: No: Ear pain, Ear discharge, Nose pain, Nose discharge, Nose congestion, Mouth pain, Mouth swelling, Throat pain, Throat swelling, Other Respiratory: No: Cough, Dry, Shortness of breath, SOB with excertion, Wheezing, Hemoptysis, Pleuritic Pain, Sputum, Wheezing, Other Cardiovascular: No: Chest Pain, Palpitations, Orthopnea, Paroxysmal Noc. Dyspnea, Edema, Lt Headedness, Other Gastrointestinal: Other (Peritoneal dialysis catheter in place); No: Nausea, Vomiting, Abdominal Pain, Diarrhea, Constipation, Melena, Hematochezia Genitourinary: No Dysuria, No Frequency, No Incontinence, No Hematuria, No Retention, No Other Musculoskeletal: other (Right great toe alone with plantar area nonhealing wound), foot pain; No: neck pain, shoulder pain, arm pain, back pain, hand pain, leg pain Skin: No: Rash, Lesions, Jaundice, Bruising, Other Allergies: Coded Allergies: No Known Drug Allergy (Verified Allergy, Unknown, 10/27/24) Exam Vital Signs Vital Signs Date Time Temp Pulse Resp B/P (MAP) Pulse Ox O2 Delivery O2 Flow Rate FiO2 10/07/25 02:54 98.2 95 20 162/86 (111) 100 98.2 General Appearance: Oriented X3, Cooperative, mild distress HEENT: Atraumatic, PERRLA, EOMI Respiratory: Clear to auscultation, Normal air movement Cardiovascular: Regular rate, Normal S1 Abdominal: Normal bowel sounds, Soft, Other (Peritoneal dialysis catheter in place) Extremities: No clubbing, No cyanosis, No edema, Normal pulses, No tenderness/swelling, Other (Right great toe including plantar surface nonhealing wound but no active foul smelling discharge) Skin: No breakdown Labs/Xrays Labs Test 10/07/25 00:28 Range/Units White Blood Count 12.0 H 4.4-10.8 10^3/uL Red Blood Count 3.96 L 4.5-5.90 10^6/uL Hemoglobin 11.3 L 13.5-17.5 g/dL Hematocrit 33.3 L 41.0-53.0 % Mean Corpuscular Volume 84.2 80.0-100.0 fL Mean Corpuscular Hemoglobin 28.4 28.0-32.0 pg Mean Corpuscular Hemoglobin Concent 33.7 32.0-36.0 g/dL Red Cell Distribution Width 15.8 H 11.8-14.3 % Platelet Count 429 140-450 10^3/uL Mean Platelet Volume 7.5 6.9-10.8 fL Neutrophils (%) (Auto) 73.1 37.0-80.0 % Lymphocytes (%) (Auto) 17.3 10.0-50.0 % Monocytes (%) (Auto) 7.2 0.0-12.0 % Eosinophils (%) (Auto) 1.8 0.0-7.0 % Basophils (%) (Auto) 0.6 0.0-2.0 % Neutrophils # (Auto) 8.8 H 1.6-8.6 10 ^3/uL Lymphocytes # (Auto) 2.1 0.4-5.4 10 ^3/uL Monocytes # (Auto) 0.9 0-1.3 10 ^3/uL Eosinophils # (Auto) 0.2 0-0.8 10 ^3/uL Basophils # (Auto) 0.1 0-0.2 10 ^3/uL Nucleated Red Blood Cells 0.0 % Sodium Level 131 L 136-145 mmol/L Potassium Level 3.2 L 3.5-5.1 mmol/L Chloride Level 90 L 98-107 mmol/L Carbon Dioxide Level 29 20-31 mmol/L Anion Gap 12 5-15 Blood Urea Nitrogen 56 H 9-23 mg/dL Creatinine 6.71 H 0.700-1.30 mg/dL Glomerular Filtration Rate Calc 9 >90 mL/min BUN/Creatinine Ratio 8.3 L 10.0-20.0 Serum Glucose 239 H 74-106 mg/dL Lactic Acid Level 1.2 0.4-2.0 mmol/L Calcium Level 9.2 8.7-10.4 mg/dL Total Bilirubin 0.2 0.2-1.0 mg/dL Aspartate Amino Transferase (AST) 19 13-40 U/L Alanine Aminotransferase (ALT) 22 7-40 U/L Alkaline Phosphatase 125 H 46-116 U/L Total Protein 8.1 5.7-8.2 g/dL Albumin 4.4 3.2-4.8 g/dL SEPSIS Sepsis Screen Date sepsis recognized/suspect: Oct 07, 2025 Time Sepsis recognized/suspect: 0004 Recent Procedure: No On Antibiotic Therapy: No Respiratory Rate >20: No Heart Rate >90: Yes Temp<36 C (96.8 F) or >38.3 C: No SBP <90 or MAP <65 mmHG: No New Acute Mental Status Change: No Is the patient on CPAP, BIPAP,: No Physician Orders Blood Culture (10/07/25 00:20) R Foot 3 View Xray (10/07/25 00:21) Admit (10/07/25 03:46) Code Status (10/07/25 03:46) Renal Standard(2gna,3gk,Lopho) (10/07/25 Breakfast) Hydrocodone-Acet 5/325mg Tab (Bison 5/32 (10/07/25 04:00) Zinc Sulfate (10/07/25 10:00) Ascorbic Acid Tablet (Vitamin C Tablet) (10/07/25 10:00) Notify Of Changes From Base (10/07/25 03:46) Heparin Sodium (Porcine) (10/07/25 10:00) Ceftriaxone Ivpb Rocephin (10/07/25 04:00) Ceftriaxone Ivpb Rocephin (10/07/25 04:00) Vancomycin (10/07/25 04:00) Glucose Blood (Accu-Chek Comfort Curve T (10/07/25 07:00) Bedtime Insulin Scale (10/07/25 22:00) Moderate Insulin Ss (10/07/25 07:00) Dextrose 50% Syringe (10/07/25 04:00) Insulin Lantus (Glargine) (Lantus) (10/07/25 18:00) Insulin Lantus (Glargine) (Lantus) (10/07/25 04:00) Potassium Er Tablet (Klor-Con Tablet) (10/07/25 04:00) *[facility] (10/07/25 03:46) Bilat Low Ext Art Duplex (10/07/25 03:46) Vital Signs Date Time Temp Pulse Resp B/P (MAP) Pulse Ox O2 Delivery O2 Flow Rate FiO2 10/07/25 02:54 98.2 95 20 162/86 (111) 100 98.2 10/07/25 00:00 99.2 98 16 145/103 100 99.2 Laboratory Tests Test 10/07/25 00:28 Lactic Acid Level 1.2 mmol/L (0.4-2.0) White Blood Count 12.0 10^3/uL (4.4-10.8) H Assessment/Plan Assessment/Plan Right great toe cellulitis Right leg pain Nonhealing wound right great toe secondary to diabetic foot History of left 5th toe amputation 2022 Vitals: Temperature 99. 2 ER patient received vancomycin and cefazolin. Leukocytosis with no left shift Right foot x-ray: No acute fracture, vascular calcification. Lactic acid 1.2 Empiric antibiotic ceftriaxone and vancomycin Pain management Zinc and vitamin-C Wound consult Blood culture Wound culture Arterial duplex to rule out PAD ESRD on peritoneal dialysis Diabetes with diabetic nephropathy Hypertensive kidney disease During admission, BP 160/86 Echo 04/20/2025: EF 60%, mild LVH, grade 1 diastolic dysfunction, left atrial enlargement. Losartan Carvedilol Atorvastatin Gabapentin Furosemide Sevelamer Basal bolus insulin Monitor blood sugar HbA1c NEPHROLOGY CONSULT Anemia chronic disease Hemoglobin 11.3, HCT 33.3, MCV 84.2, RDW 15 point Monitor for signs symptoms of bleeding Hyponatremia Sodium level 131 BMP Hypokalemia Correlation to be 3.2 Supplemented, monitor lab Benign prostatic hyperplasia Tamsulosin 0.4 mg Diet: Renal DVT prophylaxis: Heparin GI prophylaxis: Famotidine Goals of care discussion. More than 29 minute spent with patient. Full code status. Case discussed with Dr. Davis. Plan discussed with: Patient, Other (Nurse) My Orders Orders - KERWIN REYNA RESIDENT Procedure Category Date Status Time Admit ADMIT 10/07/25 Verified 03:46 Code Status CODE 10/07/25 Verified 03:46 Renal DIET 10/07/25 Verified Standard(2gna,3gk,Lopho) Breakfast Hydrocodone-Acet PHA 10/07/25 Verified 5/325mg Tab (Bison 04:00 Zinc Sulfate PHA 10/07/25 Verified 10:00 Ascorbic Acid Tablet PHA 10/07/25 Verified (Vitamin C Tablet) 10:00 Notify Md Of Changes BRITTANY 10/07/25 Verified From Base 03:46 Heparin Sodium PHA 10/07/25 Verified (Porcine) 10:00 Ceftriaxone Ivpb PHA 10/07/25 Verified Rocephin 04:00 Ceftriaxone Ivpb PHA 10/07/25 Verified Rocephin 04:00 Vancomycin PHA 10/07/25 Verified 04:00 Glucose Blood PHA 10/07/25 Verified (Accu-Chek Comfort 07:00 Bedtime Insulin Scale PHA 10/07/25 Verified 22:00 Moderate Insulin Ss PHA 10/07/25 Verified 07:00 Dextrose 50% Syringe PHA 10/07/25 Verified 04:00 Insulin Lantus PHA 10/07/25 Verified (Glargine) (Lantus) 18:00 Insulin Lantus PHA 10/07/25 Verified (Glargine) (Lantus) 04:00 Potassium Er Tablet PHA 10/07/25 Verified (Klor-Con Tablet) 04:00 *[facility] CONS 10/07/25 Verified -[place] 03:46 Bilat Low Ext Art US 10/07/25 Verified Duplex 03:46 Date of Service: Oct 07, 2025 Billing Provider: GIACOMO DAVIS MD, [place] RESIDENT Oct 07, 2025 04:31
[2025-10-07] MEDS: InsuLIN REG 1unit/0.01ml Soln (100units/ml) SC SCH ×2 (07:00→22:49)
[2025-10-07] MEDS: ACCU-CHEK COMFORT CURVE STRIP VI SCH (07:00)
[2025-10-07] MEDS: ASCORBIC ACID 500 MG TAB PO SCH (09:22)
[2025-10-07] MEDS: ZINC SULFATE 220mg CAP or TAB PO SCH (09:22)
[2025-10-07] MEDS: LOSARTAN POTASSIUM 50 MG TAB PO SCH (09:25)
[2025-10-07] MEDS: CEFEPIME 1GM/50ML 50 ML IV SCH (09:26)
[2025-10-07] MEDS: FAMOTIDINE 20 MG TAB PO SCH (09:26)
[2025-10-07] MEDS: HEPARIN SODIUM (PORCINE) 5000 UNITS/ML 1ML VIAL SC SCH (09:27)
[2025-10-07] MEDS ORDERED: FURO40TA4 PO (09:45)
[2025-10-07] MEDS ORDERED: INSU1INJ3 SC (09:46)
[2025-10-07 10:14] LABS: Hematocrit 31.6 % (41.0-53.0); Hemoglobin 10.7 g/dL (13.5-17.5); Mean Corpuscular Hemoglobin 28.5 pg (28.0-32.0); Mean Corpuscular Volume 84.1 fL (80.0-100.0); Nucleated Red Blood Cells % 0.0 %
[2025-10-07 10:21] LABS: Anion Gap 12 (5-15); Carbon Dioxide 27 mmol/L (20-31); Sodium 130 mmol/L (136-145)
[2025-10-07 10:22] LABS: Calcium 9.3 mg/dL (8.7-10.4); Chloride 91 mmol/L (98-107); Potassium 3.5 mmol/L (3.5-5.1)
[2025-10-07 10:27] LABS: BUN/Creatinine Ratio 8.6 (10.0-20.0)
[2025-10-07 10:28] LABS: Magnesium 2.2 mg/dL (1.6-2.6)
[2025-10-07 10:31] LABS: Blood Urea Nitrogen 64 mg/dL (9-23); Cholesterol 211 mg/dL (< 200); Glucose 244 mg/dL (74-106); HDL Cholesterol 34 mg/dL (40-59); Triglycerides 251 mg/dL (< 150)
--- NOTE | 2025-10-07 12:06 | DVHPN2 ---
Reviewed: Care Plan, H&P, Labs, Medications, Previous Orders, Radiology Changes from previous H/P or p: No Changes Eyes: No Pain, No Vision change, No Conjunctivae inflammation, No Eyelid inflammation, No Other, No Redness ENT: No Ear pain, No Ear discharge, No Nose pain, No Nose discharge, No Nose congestion, No Mouth pain, No Mouth swelling, No Throat pain, No Throat swelling, No Other Cardiovascular: No Chest Pain, No Palpitations, No Orthopnea, No Paroxysmal Noc. Dyspnea, No Edema, No Lt Headedness, No Other Respiratory: No Cough, No Dry, No Shortness of breath, No SOB with excertion, No Wheezing, No Hemoptysis, No Pleuritic Pain, No Sputum, No Other Gastrointestinal: No Nausea, No Vomiting, No Abdominal Pain, No Diarrhea, No Constipation, No Melena, No Hematochezia; Other (Peritoneal dialysis catheter in place) Genitourinary: No Dysuria, No Frequency, No Incontinence, No Hematuria, No Retention, No Other Musculoskeletal: other (Right great toe alone with plantar area nonhealing wound); No neck pain, No shoulder pain, No arm pain, No back pain, No hand pain, No leg pain; foot pain Skin: No Rash, No Lesions, No Jaundice, No Bruising, No Other Objective Vitals Vital Signs Date Time Temp Pulse Resp B/P (MAP) Pulse Ox O2 Delivery O2 Flow Rate FiO2 10/07/25 09:25 154/94 10/07/25 09:00 98.3 94 18 97 98.3 10/07/25 08:00 Room Air* 0 21 Medications Current Medications Medications Dose Ordered Sig/Cassi Route Start Time Stop Time Status Last Admin Dose Admin Acetaminophen/ Hydrocodone Bitart 1 tab Q4HP PRN PO 10/07/25 04:00 Zinc Sulfate 220 mg DAILY PO 10/07/25 10:00 10/07/25 09:22 220 MG Ascorbic Acid 500 mg BID PO 10/07/25 10:00 10/07/25 09:22 500 MG Heparin Sodium (Porcine) 5,000 units Q12HR SC 10/07/25 10:00 Vancomycin HCl 0 ml @ 0 mls/hr PER PHARMACY IV 10/07/25 04:00 Diagnostic Test (Pha) 1 strip ACHS 10/07/25 07:00 10/07/25 11:46 1 STRIP Insulin Human Regular HS SC 10/07/25 22:00 Insulin Human Regular AC SC 10/07/25 07:00 10/07/25 11:47 6 UNITS Dextrose 50 ml UD PRN IV 10/07/25 04:00 Insulin Glargine 15 units QPM SC 10/07/25 18:00 Tamsulosin HCl 0.4 mg QPM PO 10/07/25 18:00 Famotidine 10 mg HS PO 10/07/25 07:06 10/07/25 09:26 10 MG Losartan Potassium 50 mg DAILY PO 10/07/25 10:00 10/07/25 09:25 50 MG Cefepime HCl 50 ml @ 12.5 mls/hr HS IV 10/07/25 10:00 10/07/25 09:26 12.5 MLS/HR Laboratory Results Laboratory Tests 10/07/25 09:56 Chemistry Test 10/07/25 00:28 10/07/25 09:56 Albumin 4.4 g/dL (3.2-4.8) Calcium Level 9.2 mg/dL (8.7-10.4) 9.3 mg/dL (8.7-10.4) Total Protein 8.1 g/dL (5.7-8.2) Magnesium Level 2.2 mg/dL (1.6-2.6) Phosphorus Level 7.0 mg/dL (2.4-5.1) H Lipid panel Test 10/07/25 09:56 Cholesterol Level 211 mg/dL (< 200) H HDL Cholesterol 34 mg/dL (40-59) L Triglycerides Level 251 mg/dL (< 150) H LFT Test 10/07/25 00:28 Alanine Aminotransferase (ALT) 22 U/L (7-40) Alkaline Phosphatase 125 U/L (46-116) H Aspartate Amino Transferase (AST) 19 U/L (13-40) Total Bilirubin 0.2 mg/dL (0.2-1.0) HgA1c, TSH Test 10/07/25 09:56 Hemoglobin A1c 9.6 % A1C (<5.7) H Labs and/or images reviewed: Labs reviewed by me, Image(s) reviewed by me Assessment/Plan Assessment/Plan Right great toe cellulitis vancomycin cefepime, arterial ultrasound result pending Right leg pain Nonhealing wound right great toe secondary to diabetic foot History of left 5th toe amputation 2022 ESRD on peritoneal dialysis consult for Dr. Michaud Diabetes with diabetic nephropathy Hypertensive kidney disease Anemia chronic disease Hyponatremia Hypokalemia Benign prostatic hyperplasia Time spent 70 minutes Advanced care planning time 20 minutes Patient is full code Plan discussed with: Patient Date of Service: Oct 07, 2025 Billing Provider: CYDNEY BRIDGES MD Common Visit Codes: [id number] CARE 30-74 MIN CYDNEY BRIDGES MD Oct 07, 2025 12:06
--- NOTE | 2025-10-07 12:42 | DVH ---
US BiLat Low Ext Art Duplex HISTORY: Ruled out peripheral arterial Dx. COMPARISON: None TECHNIQUE: The bilateral lower extremity arteries were examined with grayscale imaging, color Doppler, and spectral waveform analysis. FINDINGS: The bilateral lower extremity arteries are normal in caliber with no significant plaque or aneurysm. The following arterial peak systolic velocities (Cm/sec) and waveforms were obtained: Right Common femoral artery: multiphasic; 114 Cm/s Profunda femoris artery: multiphasic; 117 Cm/s Upper SFA: monophasic; 88 Cm/s Mid SFA: monophasic; 123 Cm/s Low SFA: monophasic; 119 Cm/s Popliteal artery: monophasic; 228 Cm/s Posterior tibial artery: monophasic; 45 Cm/s Dorsalis pedis artery: monophasic; 53 Cm/s ELMER: Left Common femoral artery: multiphasic; 96 Cm/s Profunda femoris artery: multiphasic; 72 Cm/s Upper SFA: multiphasic; 113 Cm/s Mid SFA: multiphasic; 84 Cm/s Low SFA: multiphasic; 105 Cm/s Popliteal artery: multiphasic; 179 Cm/s Posterior tibial artery: monophasic; 55 Cm/s Dorsalis pedis artery: monophasic; 75 Cm/s ELMER: IMPRESSION: Mild to moderate elevated velocities in the bilateral popliteal arteries, right worse than left can be seen with mild to moderate stenosis.
[2025-10-07] MEDS: HYDROcodone-ACET 5/325MG TAB PO PRN (14:02)
--- NOTE | 2025-10-07 14:41 | DVHINCON2 ---
Date of service: Oct 07, 2025 Referring Physician Hospitalist Reason for Consultation Peritoneal dialysis History of Present Illness 55-year-old male with past medical history of end-stage renal disease on peritoneal dialysis, hypertension, diabetes patient had a right toe blister that he reports burst and became painful and darkened in color he presents to the hospital for this reason. He was admitted with a diagnosis of cellulitis rule out osteomyelitis. Nephrology was consulted for peritoneal dialysis treatment Allergies: Coded Allergies: No Known Drug Allergy (Verified Allergy, Unknown, 10/27/24) Home Meds Active Scripts Sevelamer Hydrochloride (Renagel) 800 Mg Tab, 800 MG PO TIDWM for 30 Days, #90 TAB Prov:SHERRI PECK [facility] 04/22/25 Hydralazine HCl (Hydralazine HCl) 25 Mg Tab, 100 MG PO Q12HR for 30 Days, #240 TAB Prov:SHERRI PECK 04/22/25 Gabapentin (Gabapentin) 300 Mg Cap, 300 MG PO DAILY@2200 for 30 Days, #30 CAP Prov:SHERRI PECK [facility] 04/22/25 Carvedilol (Carvedilol) 3.125 Mg Tab, 2 TAB PO BID, #180 TAB 3 Refills Prov:SHERRI PECK [facility] 04/22/25 Glipizide (Glipizide) 10 Mg Tab, 1 TAB PO BID, #180 TAB 3 Refills Prov:ANNA MARIE MENDOZA MD 10/15/22 Reported Medications Insulin NPH Isophane & Reg (Hu (Humulin 70/30 Kwikpen (70-30) 100 Unit/ml) 1 Inj Inj, 20 INJ SC BID, INJ 10/07/25 Furosemide (Furosemide) 40 Mg Tab, 80 MG PO BIDD for 30 Days, MG 10/07/25 Losartan Potassium (Losartan Potassium) 50 Mg Tab, 1 TAB PO DAILY 07/21/24 Pioglitazone Hydrochloride (PIOGLITAZONE HCL) 30 Mg Tab, 1 TAB PO DAILY 07/21/24 Empagliflozin (Jardiance) 25 Mg Tab, 1 TAB PO DAILY 09/25/23 Current Medications Current Medications Medications (Trade) Dose Ordered Sig/Cassi Route PRN Reason Start Time Stop Time Status Last Admin Acetaminophen/ Hydrocodone Bitart ([place] 5/325MG Tab) 1 tab Q4HP PRN PO MODERATE PAIN (4-6 PAIN SCALE) 10/07/25 04:00 10/07/25 14:02 Zinc Sulfate 220 mg DAILY PO 10/07/25 10:00 10/07/25 09:22 Ascorbic Acid (Vitamin C Tablet) 500 mg BID PO 10/07/25 10:00 10/07/25 09:22 Heparin Sodium (Porcine) 5,000 units Q12HR SC 10/07/25 10:00 Vancomycin HCl 0 ml @ 0 mls/hr PER PHARMACY IV 10/07/25 04:00 Diagnostic Test (Pha) (Accu-Chek Comfort Curve T) 1 strip ACHS 10/07/25 07:00 10/07/25 11:46 Insulin Human Regular (InsuLIN R) HS SC 10/07/25 22:00 Insulin Human Regular (InsuLIN R) AC SC 10/07/25 07:00 10/07/25 11:47 Dextrose 50 ml UD PRN IV Blood Sugar LESS THAN 60 10/07/25 04:00 Insulin Glargine (Lantus) 15 units QPM SC 10/07/25 18:00 Tamsulosin HCl (Flomax) 0.4 mg QPM PO 10/07/25 18:00 Famotidine (Pepcid Tablet) 10 mg HS PO 10/07/25 07:06 10/07/25 09:26 Losartan Potassium (Cozaar Tablet) 50 mg DAILY PO 10/07/25 10:00 10/07/25 14:36 DC 10/07/25 09:25 Cefepime HCl 50 ml @ 12.5 mls/hr HS IV 10/07/25 10:00 10/07/25 09:26 Iron Sucrose 110 ml @ 110 mls/hr DAILY@1200 IV 10/08/25 12:00 10/12/25 11:59 UNV Peritoneal Dialysis Solution 2,000 ml @ 0 mls/hr Q4HR IP 10/07/25 18:00 Losartan Potassium (Cozaar Tablet) 100 mg DAILY PO 10/08/25 10:00 UNV Carvedilol (Coreg Tablet) 12.5 mg Q12HR PO 10/07/25 22:00 UNV Calcium Acetate (Phoslo Capsule) 1,334 mg TIDWMEALS PO 10/07/25 18:00 UNV Family History: Diabetes mellitus G8 MOTHER Review of Systems Foot wound H&P Exam Vital Signs/I&O Vital Sign Date Time Temp Pulse Resp B/P (MAP) Pulse Ox O2 Delivery O2 Flow Rate FiO2 10/07/25 12:25 97.6 93 19 153/89 (110) 100 97.6 10/07/25 08:00 Room Air* 0 21 Physical Exam Middle-aged male nonacute distress abdomen is soft peritoneal dialysis catheter no sign of exit site infection Labs/Diagnostic Data Labs/Diagnostic Data Laboratory Tests Test 10/07/25 11:35 10/07/25 09:56 10/07/25 08:56 10/07/25 00:28 Range/Units POC Glucose 215 H 70-106 mg/dl White Blood Count 12.2 H 12.0 H 4.4-10.8 10^3/uL Red Blood Count 3.75 L 3.96 L 4.5-5.90 10^6/uL Hemoglobin 10.7 L 11.3 L 13.5-17.5 g/dL Hematocrit 31.6 L 33.3 L 41.0-53.0 % Mean Corpuscular Volume 84.1 84.2 80.0-100.0 fL Mean Corpuscular Hemoglobin 28.5 28.4 28.0-32.0 pg Mean Corpuscular Hemoglobin Concent 33.9 33.7 32.0-36.0 g/dL Red Cell Distribution Width 15.5 H 15.8 H 11.8-14.3 % Platelet Count 427 429 140-450 10^3/uL Mean Platelet Volume 7.8 7.5 6.9-10.8 fL Neutrophils (%) (Auto) 75.3 73.1 37.0-80.0 % Lymphocytes (%) (Auto) 15.8 17.3 10.0-50.0 % Monocytes (%) (Auto) 6.0 7.2 0.0-12.0 % Eosinophils (%) (Auto) 2.1 1.8 0.0-7.0 % Basophils (%) (Auto) 0.8 0.6 0.0-2.0 % Neutrophils # (Auto) 9.2 H 8.8 H 1.6-8.6 10 ^3/uL Lymphocytes # (Auto) 1.9 2.1 0.4-5.4 10 ^3/uL Monocytes # (Auto) 0.7 0.9 0-1.3 10 ^3/uL Eosinophils # (Auto) 0.3 0.2 0-0.8 10 ^3/uL Basophils # (Auto) 0.1 0.1 0-0.2 10 ^3/uL Nucleated Red Blood Cells 0.0 0.0 % Erythrocyte Sedimentation Rate 106 H 0-20 mm/hr Sodium Level 130 L 131 L 136-145 mmol/L Potassium Level 3.5 3.2 L 3.5-5.1 mmol/L Chloride Level 91 L 90 L 98-107 mmol/L Carbon Dioxide Level 27 29 20-31 mmol/L Anion Gap 12 12 5-15 Blood Urea Nitrogen 64 H 56 H 9-23 mg/dL Creatinine 7.40 H 6.71 H 0.700-1.30 mg/dL Glomerular Filtration Rate Calc 8 9 >90 mL/min BUN/Creatinine Ratio 8.6 L 8.3 L 10.0-20.0 Serum Glucose 244 H 239 H 74-106 mg/dL Hemoglobin A1c 9.6 H <5.7 % A1C Uric Acid 6.5 3.7-9.2 mg/dL Calcium Level 9.3 9.2 8.7-10.4 mg/dL Phosphorus Level 7.0 H 2.4-5.1 mg/dL Magnesium Level 2.2 1.6-2.6 mg/dL C-Reactive Protein High Sensitivity 2.78 H <1.0 mg/dL Triglycerides Level 251 H < 150 mg/dL Cholesterol Level 211 H < 200 mg/dL LDL Cholesterol 137 H < 100 mg/dL HDL Cholesterol 34 L 40-59 mg/dL Lactic Acid Level 1.2 0.4-2.0 mmol/L Total Bilirubin 0.2 0.2-1.0 mg/dL Aspartate Amino Transferase (AST) 19 13-40 U/L Alanine Aminotransferase (ALT) 22 7-40 U/L Alkaline Phosphatase 125 H 46-116 U/L Total Protein 8.1 5.7-8.2 g/dL Albumin 4.4 3.2-4.8 g/dL Vitamin B12 Level 1047 H 211-911 pg/mL Vitamin D 25-Hydroxy 56.8 30.0-100 ng/mL Assessment End-stage renal disease on peritoneal dialysis Hypertension Diabetes Sepsis secondary to cellulitis rule out osteomyelitis Hyperphosphatemia Start manual PD with 2.5% dextrose Resume home blood pressure medication losartan increased to 100 mg p.o. daily, start amlodipine tomorrow if blood pressure not controlled, Coreg q.12 hours Start renal diet and calcium acetate with each meal Peritoneal dialysis exit site catheter care daily Currently on antibiotics for foot wound infection pending MRI and podiatry consultation Plan discussed with: Patient MEERA PETERS MD Oct 07, 2025 14:41
[2025-10-07] MEDS: LORazepam 2MG/ML-1ML VIAL IV ONE (14:49)
[2025-10-07 14:57] LABS: Iron 37.0 ug/dL (65-175)
[2025-10-07 15:02] LABS: Total Iron Binding Capacity 246.0 ug/dL (250-425)
--- NOTE | 2025-10-07 16:23 | DVH ---
PROCEDURE: MRI MRI R FOOT WO CONTRAST Indication: cellulitis of rt foot COMPARISON: Radiograph from 10/07/2025 TECHNIQUE: Multiplanar multisequence images of the right foot are obtained. FINDINGS: Examination is degraded by motion. There is extensive soft tissue edema involving the right ankle, foot and digits. The edema is most pronounced along the dorsum of the right foot. There is edema within the extensor and flexor musculature of the right foot consistent with myositis. T1 images not obtained. No appreciable stir hyperintense signal within the marrow. IMPRESSION: Limited evaluation. Examination degraded by motion. T1 sequence images not obtained. Extensive edema within the right foot, ankle consistent with provided history of cellulitic changes. There is also intramuscular edema consistent with myositis changes. No loculated fluid collection is identified. No definitive marrow edema at this time. To better evaluate for osteomyelitis, recommend obtaining T1 sequences.
[2025-10-07] MEDS: TAMSULOSIN HYDROCHLORIDE 0.4 MG CAP PO SCH (17:11)
[2025-10-07] MEDS: CALCIUM ACETATE 667 MG CAP PO SCH (17:11)
[2025-10-07] MEDS: PERITONEAL DIALYSIS 2.5% SOLN 2,000 ML IP SCH (17:20)
[2025-10-07] MEDS: INSULIN LANTUS (GLARGINE) 1 /0.01ml (100units/ml) SC SCH (18:40)
[2025-10-07] MEDS: CARVEDILOL 12.5 MG TAB PO SCH (22:21)
[2025-10-08 01:00] VITALS: BP 118/66; PULSE 84; RESP 18; TEMP 97.7; O2SAT 97
[2025-10-08 05:00] VITALS: BP 113/77; PULSE 80; RESP 17; TEMP 97.7; O2SAT 98
[2025-10-08 05:44] LABS: Hematocrit 28.0 % (41.0-53.0); Hemoglobin 9.6 g/dL (13.5-17.5); Mean Corpuscular Hemoglobin 28.9 pg (28.0-32.0); Mean Corpuscular Volume 84.0 fL (80.0-100.0); Nucleated Red Blood Cells % 0.1 %
[2025-10-08 05:59] LABS: Anion Gap 12 (5-15); Carbon Dioxide 27 mmol/L (20-31)
[2025-10-08 06:02] LABS: Calcium 8.4 mg/dL (8.7-10.4); Chloride 92 mmol/L (98-107); Potassium 3.1 mmol/L (3.5-5.1); Sodium 131 mmol/L (136-145)
[2025-10-08 06:06] LABS: BUN/Creatinine Ratio 9.2 (10.0-20.0)
[2025-10-08 06:13] LABS: Blood Urea Nitrogen 65 mg/dL (9-23); Glucose 249 mg/dL (74-106)
[2025-10-08 08:00] VITALS: PULSE 71; RESP 18; O2SAT 98
--- NOTE | 2025-10-08 08:16 | DVHPN2 ---
Reviewed: Care Plan, H&P, Labs, Medications, Previous Orders, Radiology Changes from previous H/P or p: No Changes Eyes: No Pain, No Vision change, No Conjunctivae inflammation, No Eyelid inflammation, No Other, No Redness ENT: No Ear pain, No Ear discharge, No Nose pain, No Nose discharge, No Nose congestion, No Mouth pain, No Mouth swelling, No Throat pain, No Throat swelling, No Other Cardiovascular: No Chest Pain, No Palpitations, No Orthopnea, No Paroxysmal Noc. Dyspnea, No Edema, No Lt Headedness, No Other Respiratory: No Cough, No Dry, No Shortness of breath, No SOB with excertion, No Wheezing, No Hemoptysis, No Pleuritic Pain, No Sputum, No Other Gastrointestinal: No Nausea, No Vomiting, No Abdominal Pain, No Diarrhea, No Constipation, No Melena, No Hematochezia; Other (Peritoneal dialysis catheter in place) Genitourinary: No Dysuria, No Frequency, No Incontinence, No Hematuria, No Retention, No Other Musculoskeletal: other (Right great toe alone with plantar area nonhealing wound); No neck pain, No shoulder pain, No arm pain, No back pain, No hand pain, No leg pain; foot pain Skin: No Rash, No Lesions, No Jaundice, No Bruising, No Other Objective Vitals Vital Signs Date Time Temp Pulse Resp B/P (MAP) Pulse Ox O2 Delivery O2 Flow Rate FiO2 10/08/25 05:00 97.7 80 17 113/77 (89) 98 97.7 10/07/25 20:00 Room Air* 0 21 Intake/Output Intake and Output 10/08/25 07:00 Intake Total 1050 ml Balance 1050 ml Intake Oral 950 ml IV Total 100 ml # Voids 3 Medications Current Medications Medications Dose Ordered Sig/Cassi Route Start Time Stop Time Status Last Admin Dose Admin Acetaminophen/ Hydrocodone Bitart 1 tab Q4HP PRN PO 10/07/25 04:00 10/07/25 14:02 1 TAB Zinc Sulfate 220 mg DAILY PO 10/07/25 10:00 10/07/25 09:22 220 MG Ascorbic Acid 500 mg BID PO 10/07/25 10:00 10/07/25 22:19 500 MG Heparin Sodium (Porcine) 5,000 units Q12HR SC 10/07/25 10:00 Vancomycin HCl 0 ml @ 0 mls/hr PER PHARMACY IV 10/07/25 04:00 Diagnostic Test (Pha) 1 strip ACHS 10/07/25 07:00 10/07/25 22:00 1 STRIP Insulin Human Regular HS SC 10/07/25 22:00 10/07/25 22:49 4 UNITS Insulin Human Regular AC SC 10/07/25 07:00 10/07/25 17:14 6 UNITS Dextrose 50 ml UD PRN IV 10/07/25 04:00 Insulin Glargine 15 units QPM SC 10/07/25 18:00 10/07/25 18:40 15 UNITS Tamsulosin HCl 0.4 mg QPM PO 10/07/25 18:00 10/07/25 17:11 0.4 MG Famotidine 10 mg HS PO 10/07/25 07:06 10/07/25 22:19 10 MG Cefepime HCl 50 ml @ 12.5 mls/hr HS IV 10/07/25 10:00 10/07/25 22:19 12.5 MLS/HR Iron Sucrose 110 ml @ 110 mls/hr DAILY@1200 IV 10/08/25 12:00 10/12/25 11:59 UNV Peritoneal Dialysis Solution 2,000 ml @ 0 mls/hr Q4HR IP 10/07/25 18:00 10/08/25 06:20 0 MLS/HR Losartan Potassium 100 mg DAILY PO 10/08/25 10:00 Carvedilol 12.5 mg Q12HR PO 10/07/25 22:00 10/07/25 22:21 12.5 MG Calcium Acetate 1,334 mg TIDWMEALS PO 10/07/25 18:00 10/07/25 17:11 1,334 MG Mupirocin 1 applic DAILY TOP 10/08/25 10:00 Potassium Chloride 20 meq DAILY PO 10/08/25 10:00 Laboratory Results Laboratory Tests 10/08/25 04:50 Chemistry Test 10/07/25 09:56 10/08/25 04:50 Calcium Level 9.3 mg/dL (8.7-10.4) 8.4 mg/dL (8.7-10.4) L Magnesium Level 2.2 mg/dL (1.6-2.6) Phosphorus Level 7.0 mg/dL (2.4-5.1) H Lipid panel Test 10/07/25 09:56 Cholesterol Level 211 mg/dL (< 200) H HDL Cholesterol 34 mg/dL (40-59) L Triglycerides Level 251 mg/dL (< 150) H HgA1c, TSH Test 10/07/25 09:56 Hemoglobin A1c 9.6 % A1C (<5.7) H Microbiology Microbiology Date/Time Source Procedure Growth Status 10/07/25 00:28 Blood Blood Culture - Preliminary NO GROWTH AFTER 24 HOURS OF INCUBATION. 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 Michaud Diabetes with diabetic nephropathy neuropathy vasculopathy Hypertensive kidney disease Anemia chronic disease Hyponatremia Hypokalemia Benign prostatic hyperplasia: Blood cultures neg Time spent 50 minutes Advanced care planning time 20 minutes Patient is full code Plan discussed with: Patient My Orders Orders - CYDNEY BRIDGES MD Procedure Category Date Status Time *Podiatry Consult CONS 10/08/25 Transmitted Cedric([facility]) 08:13 Date of Service: Oct 08, 2025 Billing Provider: CYDNEY BRIDGES MD Common Visit Codes: [id number] INP/OBS CARE(HIGH) CYDNEY BRIDGES MD Oct 08, 2025 08:16
[2025-10-08] MEDS: POTASSIUM CHL 20 Meq TABLET PO SCH (08:57)
[2025-10-08] MEDS: LOSARTAN POTASSIUM 50 MG TAB PO SCH (08:58)
[2025-10-08 09:00] VITALS: BP 125/71; PULSE 71; RESP 17; TEMP 97.5; O2SAT 98
[2025-10-08] MEDS: MUPIROCIN 2% OINT 15gm or 22gm TOP SCH (10:00)
--- NOTE | 2025-10-08 10:03 | DVHINCON2 ---
Date of service: Oct 08, 2025 History of Present Illness This is a 55 year old male with past medical history of DM 2, ESRD on peritoneal dialysis catheter placement on April 2025, anemia of chronic disease, hyper tension, peripheral neuropathy, BPH came to ER with a complaint of right great toe wound for last 4 days. Patient brought a pair of new shoe and blister noted on right great toe which bust and nonhealing wound noted which looks mild swollen, redness around the wound but no active foul smelling discharge. Patient history of left 5th toe amputation 2022 due to complication of diabetic foot. Patient compliance with his medication, denies any trauma, injury, MVA or recent sick contact. Currently patient denies any fever cough, SOB, chest pain, headache, abdominal pain, dysuria or any other acute distress. Patient follow- up with Podiatry Dr. Steele and nephrology for CKD. Past medical history: As above Past surgical: As above Personal history: Denies any EtOH or illicit drug. Smoking 1 pack/3 days. Social history: Lives with family Allergy: No known allergy PCP: Dr. Davis Home medication: Empagliflozin, carvedilol, furosemide, gabapentin, glipizide, hydralazine, pioglitazone, sevelamer, Lokelma, Humulin insulin, tamsulosin. Past Medical History reviewed Family History: Diabetes mellitus G8 MOTHER Allergies: Coded Allergies: No Known Drug Allergy (Verified Allergy, Unknown, 10/27/24) Home Meds Active Scripts Sevelamer Hydrochloride (Renagel) 800 Mg Tab, 800 MG PO TIDWM for 30 Days, #90 TAB Prov:SHERRI PECK 04/22/25 Hydralazine HCl (Hydralazine HCl) 25 Mg Tab, 100 MG PO Q12HR for 30 Days, #240 TAB Prov:SHERRI PECK 04/22/25 Gabapentin (Gabapentin) 300 Mg Cap, 300 MG PO DAILY@2200 for 30 Days, #30 CAP Prov:SHERRI PECK 04/22/25 Carvedilol (Carvedilol) 3.125 Mg Tab, 2 TAB PO BID, #180 TAB 3 Refills Prov:SHERRI PECK 04/22/25 Glipizide (Glipizide) 10 Mg Tab, 1 TAB PO BID, #180 TAB 3 Refills Prov:ANNA MARIE MENDOZA MD 10/15/22 Reported Medications Insulin NPH Isophane & Reg (Hu (Humulin 70/30 Kwikpen (70-30) 100 Unit/ml) 1 Inj Inj, 20 INJ SC BID, INJ 10/07/25 Furosemide (Furosemide) 40 Mg Tab, 80 MG PO BIDD for 30 Days, MG 10/07/25 Losartan Potassium (Losartan Potassium) 50 Mg Tab, 1 TAB PO DAILY 07/21/24 Pioglitazone Hydrochloride (PIOGLITAZONE HCL) 30 Mg Tab, 1 TAB PO DAILY 07/21/24 Empagliflozin (Jardiance) 25 Mg Tab, 1 TAB PO DAILY 09/25/23 Current Medications Current Medications Medications (Trade) Dose Ordered Sig/Cassi Route PRN Reason Start Time Stop Time Status Last Admin Insulin Human Regular (InsuLIN R) HS SC 10/07/25 22:00 10/07/25 22:49 Insulin Glargine (Lantus) 15 units QPM SC 10/07/25 18:00 10/07/25 18:40 Tamsulosin HCl (Flomax) 0.4 mg QPM PO 10/07/25 18:00 10/07/25 17:11 Iron Sucrose 110 ml @ 110 mls/hr DAILY@1200 IV 10/08/25 12:00 10/12/25 11:59 UNV Peritoneal Dialysis Solution 2,000 ml @ 0 mls/hr Q4HR IP 10/07/25 18:00 10/08/25 06:20 Losartan Potassium (Cozaar Tablet) 100 mg DAILY PO 10/08/25 10:00 10/08/25 08:58 Carvedilol (Coreg Tablet) 12.5 mg Q12HR PO 10/07/25 22:00 10/08/25 08:59 Calcium Acetate (Phoslo Capsule) 1,334 mg TIDWMEALS PO 10/07/25 18:00 10/08/25 09:14 Mupirocin (Bactroban 2% Ointment) 1 applic DAILY TOP 10/08/25 10:00 Potassium Chloride (Klor-Con Tablet) 20 meq DAILY PO 10/08/25 10:00 10/08/25 08:57 Review of Systems 10 pt ros otherwise negative Vital Signs Vital Signs Date Time Temp Pulse Resp B/P (MAP) Pulse Ox O2 Delivery O2 Flow Rate FiO2 10/08/25 09:00 97.5 71 17 125/71 (89) 98 97.5 10/07/25 20:00 Room Air* 0 21 Physical Exam nad s1 s2 rrr ctab soft nt/nd RLE bandaged up Labs/Diagnostic Data Labs Test 10/08/25 06:18 10/08/25 04:50 10/07/25 09:56 10/07/25 08:56 Range/Units POC Glucose 246 H 70-106 mg/dl White Blood Count 9.3 4.4-10.8 10^3/uL Red Blood Count 3.33 L 4.5-5.90 10^6/uL Hemoglobin 9.6 L 13.5-17.5 g/dL Hematocrit 28.0 #L 41.0-53.0 % Mean Corpuscular Volume 84.0 80.0-100.0 fL Mean Corpuscular Hemoglobin 28.9 28.0-32.0 pg Mean Corpuscular Hemoglobin Concent 34.4 32.0-36.0 g/dL Red Cell Distribution Width 15.6 H 11.8-14.3 % Platelet Count 331 140-450 10^3/uL Mean Platelet Volume 7.9 6.9-10.8 fL Neutrophils (%) (Auto) 69.4 37.0-80.0 % Lymphocytes (%) (Auto) 17.8 10.0-50.0 % Monocytes (%) (Auto) 8.7 0.0-12.0 % Eosinophils (%) (Auto) 3.3 0.0-7.0 % Basophils (%) (Auto) 0.8 0.0-2.0 % Neutrophils # (Auto) 6.4 1.6-8.6 10 ^3/uL Lymphocytes # (Auto) 1.6 0.4-5.4 10 ^3/uL Monocytes # (Auto) 0.8 0-1.3 10 ^3/uL Eosinophils # (Auto) 0.3 0-0.8 10 ^3/uL Basophils # (Auto) 0.1 0-0.2 10 ^3/uL Nucleated Red Blood Cells 0.1 % Sodium Level 131 L 136-145 mmol/L Potassium Level 3.1 L 3.5-5.1 mmol/L Chloride Level 92 L 98-107 mmol/L Carbon Dioxide Level 27 20-31 mmol/L Anion Gap 12 5-15 Blood Urea Nitrogen 65 H 9-23 mg/dL Creatinine 7.07 H 0.700-1.30 mg/dL Glomerular Filtration Rate Calc 9 >90 mL/min BUN/Creatinine Ratio 9.2 L 10.0-20.0 Serum Glucose 249 H 74-106 mg/dL Calcium Level 8.4 L 8.7-10.4 mg/dL Random Vancomycin Level 16.6 H 5-10 ug/mL Erythrocyte Sedimentation Rate 106 H 0-20 mm/hr Hemoglobin A1c 9.6 H <5.7 % A1C Uric Acid 6.5 3.7-9.2 mg/dL Phosphorus Level 7.0 H 2.4-5.1 mg/dL Magnesium Level 2.2 1.6-2.6 mg/dL Iron Level 37 L 65-175 ug/dL Total Iron Binding Capacity 246 L 250-425 ug/dL Percent Iron Saturation 15.0 L 20-55 % Ferritin 363.7 H 22-322 ng/mL C-Reactive Protein High Sensitivity 2.78 H <1.0 mg/dL Triglycerides Level 251 H < 150 mg/dL Cholesterol Level 211 H < 200 mg/dL LDL Cholesterol 137 H < 100 mg/dL HDL Cholesterol 34 L 40-59 mg/dL Test 10/07/25 00:28 Range/Units Lactic Acid Level 1.2 0.4-2.0 mmol/L Total Bilirubin 0.2 0.2-1.0 mg/dL Aspartate Amino Transferase (AST) 19 13-40 U/L Alanine Aminotransferase (ALT) 22 7-40 U/L Alkaline Phosphatase 125 H 46-116 U/L Total Protein 8.1 5.7-8.2 g/dL Albumin 4.4 3.2-4.8 g/dL Vitamin B12 Level 1047 H 211-911 pg/mL Vitamin D 25-Hydroxy 56.8 30.0-100 ng/mL Microbiology Date/Time Source Procedure Growth Status 10/07/25 00:28 Blood Blood Culture - Preliminary NO GROWTH AFTER 24 HOURS OF INCUBATION. Resulted Assessment PAD RLE wound esrd on pd htn DM Plan/Recommendation reviewed US, likely has severe pop and infrapop disease which is understated pt is at high risk for tissue/ limb loss in future offered peripheral angiogram, pt has declined, "i have to go home now" recommend asa plavix, statin, if pt reconsiders we can see patient pt had very strong education regarding risks benefits and alternatives of angio Plan discussed with: Patient JOSE ROSENTHAL MD Oct 08, 2025 10:03
--- NOTE | 2025-10-08 10:32 | DVHPN2 ---
Progress Note Date Seen: Oct 08, 2025 Medical Necessity Reason Pt with a Central, PICC or Fol: No Subjective Changes from previous H/P or p: No Changes Objective vital signs Vital Sign Date Time Temp Pulse Resp B/P (MAP) Pulse Ox O2 Delivery O2 Flow Rate FiO2 10/08/25 09:00 97.5 71 17 125/71 (89) 98 97.5 10/08/25 08:00 Room Air* 0 21 Total Intake and Output 10/07/25 10/07/25 10/08/25 15:00 23:00 07:00 Intake Total 450 ml 550 ml 50 ml Balance 450 ml 550 ml 50 ml medications Current Medications Medications Dose Ordered Sig/Cassi Route Start Time Stop Time Status Last Admin Dose Admin Acetaminophen/ Hydrocodone Bitart 1 tab Q4HP PRN PO 10/07/25 04:00 10/07/25 14:02 1 TAB Zinc Sulfate 220 mg DAILY PO 10/07/25 10:00 10/08/25 08:56 220 MG Ascorbic Acid 500 mg BID PO 10/07/25 10:00 10/08/25 08:56 500 MG Heparin Sodium (Porcine) 5,000 units Q12HR SC 10/07/25 10:00 Vancomycin HCl 0 ml @ 0 mls/hr PER PHARMACY IV 10/07/25 04:00 Diagnostic Test (Pha) 1 strip ACHS 10/07/25 07:00 10/07/25 22:00 1 STRIP Insulin Human Regular HS SC 10/07/25 22:00 10/07/25 22:49 4 UNITS Insulin Human Regular AC SC 10/07/25 07:00 10/07/25 17:14 6 UNITS Dextrose 50 ml UD PRN IV 10/07/25 04:00 Insulin Glargine 15 units QPM SC 10/07/25 18:00 10/07/25 18:40 15 UNITS Tamsulosin HCl 0.4 mg QPM PO 10/07/25 18:00 10/07/25 17:11 0.4 MG Famotidine 10 mg HS PO 10/07/25 07:06 10/07/25 22:19 10 MG Cefepime HCl 50 ml @ 12.5 mls/hr HS IV 10/07/25 10:00 10/07/25 22:19 12.5 MLS/HR Iron Sucrose 110 ml @ 110 mls/hr DAILY@1200 IV 10/08/25 12:00 10/12/25 11:59 UNV Peritoneal Dialysis Solution 2,000 ml @ 0 mls/hr Q4HR IP 10/07/25 18:00 10/08/25 06:20 0 MLS/HR Losartan Potassium 100 mg DAILY PO 10/08/25 10:00 10/08/25 08:58 100 MG Carvedilol 12.5 mg Q12HR PO 10/07/25 22:00 10/08/25 08:59 12.5 MG Calcium Acetate 1,334 mg TIDWMEALS PO 10/07/25 18:00 10/08/25 09:14 1,334 MG Mupirocin 1 applic DAILY TOP 10/08/25 10:00 Potassium Chloride 20 meq DAILY PO 10/08/25 10:00 10/08/25 08:57 20 MEQ Examination: GENERAL:Normal, CVS:Normal, MSK:Abnormal, NEURO:Normal laboratory and microbiology Laboratory Tests 10/08/25 04:50 Test 10/08/25 04:50 Range/Units Serum Glucose 249 H 74-106 mg/dL Microbiology Date/Time Source Procedure Growth Status 10/07/25 00:28 Blood Blood Culture - Preliminary NO GROWTH AFTER 24 HOURS OF INCUBATION. Resulted Problem List/Assessment/Plan Problem List/Assessment/Plan End-stage renal disease on peritoneal dialysis Hypertension Diabetes Sepsis secondary to cellulitis rule out osteomyelitis Hyperphosphatemia manual PD with 2.5% dextrose every 4 hours losartan 100 mg p.o. daily, no need for amlodipine at this time , Coreg q.12 hours renal diet and calcium acetate with each meal Peritoneal dialysis exit site catheter care daily s/p MRI foot cardiology consult Plan discussed with: Patient My Orders My Orders Orders - MEERA PETERS MD Procedure Category Date Status Time Document Fluid Input BRITTANY 10/07/25 In Process And Outpu 14:25 Acute Hepatitis Panel LAB 10/07/25 In Process 14:25 Peritoneal Dialysis PHA 10/07/25 In Process 2.5% Soln 18:00 Communication Order ORDERS 10/07/25 Transmitted 14:25 Losartan Tablet PHA 10/08/25 In Process (Cozaar Tablet) 10:00 Carvedilol Tablet PHA 10/07/25 In Process (Coreg Tablet) 22:00 Calcium Acetate PHA 10/07/25 In Process Capsule (Phoslo 18:00 Mupirocin 2% Ointment PHA 10/08/25 In Process (Bactroban 2% Oint 10:00 Communication Order ORDERS 10/07/25 Transmitted 14:41 Potassium Er Tablet PHA 10/08/25 In Process (Klor-Con Tablet) 10:00 MEERA PETERS MD Oct 08, 2025 10:32
[2025-10-08] MEDS ORDERED: IRON SUCROSE COMPLEX 110 ML IV SCH (12:00)
--- NOTE | 2025-10-09 08:20 | DVHDS2 ---
Discharge Summary Date of Admission Oct 07, 2025 at 03:46 Date of Discharge: Oct 08, 2025 Admitting Diagnosis Right great toe infection Wounds: Right great toe infection Labs/Diagnostic Data: Laboratory Results Test 10/08/25 11:21 10/08/25 04:50 10/07/25 09:56 10/07/25 08:56 POC Glucose 175 mg/dl (70-106) White Blood Count 9.3 10^3/uL (4.4-10.8) Red Blood Count 3.33 10^6/uL (4.5-5.90) Hemoglobin 9.6 g/dL (13.5-17.5) Hematocrit 28.0 % (41.0-53.0) Mean Corpuscular Volume 84.0 fL (80.0-100.0) Mean Corpuscular Hemoglobin 28.9 pg (28.0-32.0) Mean Corpuscular Hemoglobin Concent 34.4 g/dL (32.0-36.0) Red Cell Distribution Width 15.6 % (11.8-14.3) Platelet Count 331 10^3/uL (140-450) Mean Platelet Volume 7.9 fL (6.9-10.8) Neutrophils (%) (Auto) 69.4 % (37.0-80.0) Lymphocytes (%) (Auto) 17.8 % (10.0-50.0) Monocytes (%) (Auto) 8.7 % (0.0-12.0) Eosinophils (%) (Auto) 3.3 % (0.0-7.0) Basophils (%) (Auto) 0.8 % (0.0-2.0) Neutrophils # (Auto) 6.4 10 ^3/uL (1.6-8.6) Lymphocytes # (Auto) 1.6 10 ^3/uL (0.4-5.4) Monocytes # (Auto) 0.8 10 ^3/uL (0-1.3) Eosinophils # (Auto) 0.3 10 ^3/uL (0-0.8) Basophils # (Auto) 0.1 10 ^3/uL (0-0.2) Nucleated Red Blood Cells 0.1 % Sodium Level 131 mmol/L (136-145) Potassium Level 3.1 mmol/L (3.5-5.1) Chloride Level 92 mmol/L (98-107) Carbon Dioxide Level 27 mmol/L (20-31) Anion Gap 12 (5-15) Blood Urea Nitrogen 65 mg/dL (9-23) Creatinine 7.07 mg/dL (0.700-1.30) Glomerular Filtration Rate Calc 9 mL/min (>90) BUN/Creatinine Ratio 9.2 (10.0-20.0) Serum Glucose 249 mg/dL (74-106) Calcium Level 8.4 mg/dL (8.7-10.4) Random Vancomycin Level 16.6 ug/mL (5-10) Erythrocyte Sedimentation Rate 106 mm/hr (0-20) Hemoglobin A1c 9.6 % A1C (<5.7) Uric Acid 6.5 mg/dL (3.7-9.2) Phosphorus Level 7.0 mg/dL (2.4-5.1) Magnesium Level 2.2 mg/dL (1.6-2.6) Iron Level 37 ug/dL (65-175) Total Iron Binding Capacity 246 ug/dL (250-425) Percent Iron Saturation 15.0 % (20-55) Ferritin 363.7 ng/mL (22-322) C-Reactive Protein High Sensitivity 2.78 mg/dL (<1.0) Triglycerides Level 251 mg/dL (< 150) Cholesterol Level 211 mg/dL (< 200) LDL Cholesterol 137 mg/dL (< 100) HDL Cholesterol 34 mg/dL (40-59) Test 10/07/25 00:28 Lactic Acid Level 1.2 mmol/L (0.4-2.0) Total Bilirubin 0.2 mg/dL (0.2-1.0) Aspartate Amino Transferase (AST) 19 U/L (13-40) Alanine Aminotransferase (ALT) 22 U/L (7-40) Alkaline Phosphatase 125 U/L (46-116) Total Protein 8.1 g/dL (5.7-8.2) Albumin 4.4 g/dL (3.2-4.8) Vitamin B12 Level 1047 pg/mL (211-911) Vitamin D 25-Hydroxy 56.8 ng/mL (30.0-100) Other Laboratory Tests 10/08/25 04:50 Brief Hx & Hospital Course: Discharge summary dictated after the patient left AMA 55-year-old male with a history of ESRD on dialysis uncontrolled diabetes hypertension chronic anemia BPH came in complaining of pain and swelling of the right great toe found to have cellulitis of the right great toe started on vancomycin cefepime arterial ultrasound showed moderate stenosis of right popliteal artery cardiology consult by Dr. Moreau who felt patient needs to have the peripheral angiogram but patient refused. Nephrology consult for dialysis For podiatric consult with Dr. Steele pending but patient decided to leave AMA stating that he has an appointment with the Dr. Foy on 10/13/2025 consequences and complications of leaving AMA including possible loss of limb and explained to the patient and he verbalized understanding and left AMA Consults/Reason for consult Cardiology Dr. 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 Michaud Diabetes with diabetic nephropathy neuropathy vasculopathy Hypertensive kidney disease Anemia chronic disease Hyponatremia Hypokalemia Benign prostatic hyperplasia: Blood cultures neg Discharge Disposition: AMA Discharge Instruct/Medications Diet comment: Not applicable Patient left AMA Activity comment: Not applicable Patient left AMA Follow Up/Referral: Not applicable Patient left AMA Medications: Not applicable Patient left AMA Scheduled Carvedilol (Carvedilol), 2 TAB PO BID Empagliflozin (Jardiance), 1 TAB PO DAILY, (Reported) Furosemide (Furosemide), 80 MG PO BIDD, (Reported) Gabapentin (Gabapentin), 300 MG PO DAILY@2200 Glipizide (Glipizide), 1 TAB PO BID Hydralazine HCl (Hydralazine HCl), 100 MG PO Q12HR Insulin NPH Isophane & Reg (Hu (Humulin 70/30 Kwikpen (70-30) 100 Unit/ml), 20 INJ SC BID, (Reported) Losartan Potassium (Losartan Potassium), 1 TAB PO DAILY, (Reported) Pioglitazone Hydrochloride (Pioglitazone Hcl), 1 TAB PO DAILY, (Reported) Sevelamer Hydrochloride (Renagel), 800 MG PO TIDWM 39 (Time taken for discharge summary 39 minutes) Discharge Statement: "Patient was advised to return to the ER or call 911 if any headaches, dizziness, shortness of breath, chest pain, abdominal pain, bleeding, fevers, or worsening of medical condition. Patient was counseled about treatment plan, medications, possible side effects, patientverbalized understanding. All questions were answered to the best of my ability. This discharge took greater then 30 minutes in planning, reviewing documentation, counseling the patient, and discussing with other team members." ASSESSMENT ASSESSMENT Hospital Course AMA Assessment Date of Service: Oct 09, 2025 Billing Provider: CYDNEY BRIDGES MD Common Visit Codes: 48204-FCR/OBS DISCH DAY >30min CYDNEY BRIDGES MD Oct 09, 2025 08:20
[2025-10-14 11:43] LABS: Hepatitis B Surface Antigen Negative (Negative); Hepatitis C Antibody Negative (Negative)
== END 2025-10-08 12:33 | disposition left against medical advice (07) | DRG 637 ==
LOC: ER 23:58 → OVERFLOW 10-07 03:46 → CENTRAL 10-07 06:36
PROVIDERS: ATTEND Emergency Medicine
DX: E11.69 Type 2 diabetes mellitus with other specified complication (principal); N18.6 End stage renal disease; M86.9 Osteomyelitis, unspecified; I12.0 Hypertensive chronic kidney disease with stage 5 chronic kidney disease or end stage renal disease; E83.39 Other disorders of phosphorus metabolism; E87.1 Hypo-osmolality and hyponatremia; D63.1 Anemia in chronic kidney disease; L03.115 Cellulitis of right lower limb; Z99.2 Dependence on renal dialysis; L03.031 Cellulitis of right toe; E11.42 Type 2 diabetes mellitus with diabetic polyneuropathy; E11.22 Type 2 diabetes mellitus with diabetic chronic kidney disease; E11.65 Type 2 diabetes mellitus with hyperglycemia; E87.6 Hypokalemia; N40.0 Benign prostatic hyperplasia without lower urinary tract symptoms; Z53.29 Procedure and treatment not carried out because of patient's decision for other reasons; S91.101A Unspecified open wound of right great toe without damage to nail, initial encounter; E11.51 Type 2 diabetes mellitus with diabetic peripheral angiopathy without gangrene; Z89.422 Acquired absence of other left toe(s); Z79.899 Other long term (current) drug therapy; Z83.3 Family history of diabetes mellitus; Z79.84 Long term (current) use of oral hypoglycemic drugs; X58.XXXA Exposure to other specified factors, initial encounter; Y93.89 Activity, other specified; Y92.89 Other specified places as the place of occurrence of the external cause; Y99.8 Other external cause status
CPT/HCPCS: 36415; 73630; 73718; 80048; 80053; 80061; 80074; 80202; 82306; 82607; 82728; 82962; 83036; 83540; 83550; 83605; 83735; 84100; 84550; 85025; 85652; 86141; 87040; 87081; 87205; 93925; 99291; G0378; J1815